=== PATIENT | male | born 1950 | race Caucasian/White ===

== ENCOUNTER 2018-06-05 11:54 | Emergency (ER) | payer MEDICARE, OTHER, SELFPAY ==
[2018-06-05 12:05] VITALS: BP 174/88; PULSE 101; RESP 20; TEMP 36.4; O2SAT 98
[2018-06-05] MEDS: SODIUM CHLORIDE 0.9% 1,000 ML 1000 ML IV (12:27)
[2018-06-05] MEDS: ONDANSETRON 4 MG/2 ML INJ IV (12:27)
--- NOTE | 2018-06-05 12:37 | ED.MALEGU ---
HPI - Male Genitourinary <WAYNE Son - Last Filed: 06/05/18 22:22> General Chief complaint: Urogenital-Male Stated complaint: THINKS KIDNEY STONES Time Seen by Provider: 06/05/18 12:37 Source: patient Mode of arrival: ambulatory Limitations: no limitations History of Present Illness HPI Narrative: 67-year-old male with history of type 2 diabetes and kidney stones that is a nonsmoker here for complaint of right flank pain and right lower quadrant pain over the past couple of days. He also states he has had some nausea vomiting. Positive p.o. intake. He states he feels like he has had chills at times. He reports increasing pain today. He states symptoms remind him of having a kidney stone in the past. He denies any trauma to the area. Last bowel movement was yesterday and was unremarkable. He denies any urinary symptoms. He denies any stressors relievers of his pain Related Data Home Medications Medication Instructions Recorded Confirmed amlodipine 10 mg PO DAILY 06/05/18 06/05/18 chlorthalidone 50 mg PO DAILY 06/05/18 06/05/18 fenofibrate 160 mg PO DAILY 06/05/18 06/05/18 insulin glargine [Lantus Solostar 24 units SUBCUT DAILY 06/05/18 06/05/18 U-100 Insulin] insulin lispro 1 dose SUBCUT AC 06/05/18 06/05/18 losartan 100 mg PO DAILY 06/05/18 06/05/18 melatonin 1 tab PO BEDTIME PRN 06/05/18 06/05/18 metformin 500 mg PO BID 06/05/18 06/05/18 rosuvastatin [Crestor] 20 mg PO DAILY 06/05/18 06/05/18 Previous Rx's Medication Instructions Recorded hydrocodone-acetaminophen [[place]] 1 tab PO Q4-6H PRN #15 tab 06/05/18 ondansetron 4 mg PO BID-TID PRN #10 tab 06/05/18 tamsulosin 0.4 mg PO DAILY #7 cap 06/05/18 Allergies Allergy/AdvReac Type Severity Reaction Status Date / Time levofloxacin [From Levaquin] Allergy Verified 06/05/18 12:15 Penicillins Allergy Verified 06/05/18 12:11 Review of Systems <WAYNE Son - Last Filed: 06/05/18 22:22> Constitutional Reports chills, Denies fever(s), Denies lethargy and Denies weakness Eyes Denies change in vision, Denies eye discharge, Denies irritation and Denies loss of vision ENT Ears, Nose, Mouth, and Throat: Denies change in voice, Denies neck pain and Denies sore throat Cardiovascular Denies chest pain, Denies irregular heart rhythm, Denies lightheadedness, Denies palpitations, Denies dyspnea, Denies dyspnea on exertion and Denies orthopnea Respiratory Denies cough, Denies dyspnea, Denies dyspnea on exertion and Denies wheezing Gastrointestinal Gastrointestinal: Reports abdominal pain Genitourinary Reports flank pain Musculoskeletal Denies neck pain Integumentary/Breasts Denies pruritus, Denies erythema, Denies rash and Denies wounds Neurologic Denies confusion, Denies loss of vision and Denies weakness Psychiatric Denies anxiety, Denies confusion, Denies depression, Denies homicidal ideation and Denies suicidal ideation Endocrine Denies palpitations Hematologic/Lymphatic Denies easy bruising Allergic/Immunologic Denies wheezing Exam <Sivakumar Tse [facility] - Last Filed: 06/05/18 22:22> Initial Vital Signs Initial Vital Signs: Vital Signs Temperature 97.5 F L 06/05/18 12:05 Pulse Rate 101 H 06/05/18 12:05 Respiratory Rate 20 06/05/18 12:05 Blood Pressure 174/88 H 06/05/18 12:05 Pulse Oximetry 98 06/05/18 12:05 Const General: cooperative and well developed Nutritional Appearance: well nourished Orientation: alert, awake, oriented x3 and not confused [facility] Mouth: oral mucosae normal and moist mucous membranes Eyes Conjunctivae: conjunctivae normal Sclera: sclerae normal Pupils: PERRL EOM: EOM intact bilaterally Resp Effort & Inspection: normal respiratory effort, able to speak in complete sentences, no respiratory distress and no use of accessory muscles Auscultation: clear to auscultation bilaterally, no rales, no rhonchi and no wheezes Cardio Rate: regular rate Rhythm: regular rhythm Heart Sounds: no click, no gallops, no murmurs and no rubs Pulses: normal peripheral pulses GI Inspection: non-distended Palpation: soft, no hepatosplenomegaly, No guarding, No pulsatile mass and tender (Tenderness right lower quadrant.) Auscultation: normal bowel sounds General: No CVA tenderness Other: Right flank pain Back/Spine/Pelvis Back: No CVA tenderness Cervical Spine: cervical ROM normal and No pain with cervical ROM Thoracic/Lumbar Spine: thoracic and lumbar spine normal to inspection Skin General: no rashes or lesions noted, No jaundice and No petechiae Neuro General: alert, oriented x3, gait normal and no focal motor deficits Speech: speech normal <Shaniqua Jimenez DO - Last Filed: 06/11/18 05:47> Initial Vital Signs Initial Vital Signs: Vital Signs Temperature 97.5 F L 06/05/18 12:05 Pulse Rate 101 H 06/05/18 12:05 Respiratory Rate 20 06/05/18 12:05 Blood Pressure 174/88 H 06/05/18 12:05 Pulse Oximetry 98 06/05/18 12:05 Course <WAYNE Son - Last Filed: 06/05/18 22:22> Orders Ordered: Discontinued Medications Sodium Chloride (Normal Saline 0.9%) 1,000 mls @ 1,000 mls/hr IV BOLUS ONE Stop: 06/05/18 13:24 Last Infusion: 06/05/18 13:30 Dose: 0 mls/hr Admin: 06/05/18 12:27 Dose: 1,000 mls/hr Ketorolac Tromethamine (Toradol) 30 mg IV NOW ONE Stop: 06/05/18 14:08 Last Admin: 06/05/18 14:09 Dose: 30 mg Ondansetron HCl (Zofran) 4 mg IV NOW ONE Stop: 06/05/18 12:26 Last Admin: 06/05/18 12:27 Dose: 4 mg Vital Signs - 8 hr 06/05/18 15:09 Pulse Rate 102 H Respiratory Rate 20 Blood Pressure 145/96 H Pulse Oximetry 97 <Shaniqua Jimenez DO - Last Filed: 06/11/18 05:47> Orders Ordered: Discontinued Medications Sodium Chloride (Normal Saline 0.9%) 1,000 mls @ 1,000 mls/hr IV BOLUS ONE Stop: 06/05/18 13:24 Last Infusion: 06/05/18 13:30 Dose: 0 mls/hr Admin: 10/05/18 12:27 Dose: 1,000 mls/hr Ketorolac Tromethamine (Toradol) 30 mg IV NOW ONE Stop: 06/05/18 14:08 Last Admin: 06/05/18 14:09 Dose: 30 mg Ondansetron HCl (Zofran) 4 mg IV NOW ONE Stop: 06/05/18 12:26 Last Admin: 06/05/18 12:27 Dose: 4 mg Vital Signs - 8 hr 06/05/18 15:09 Pulse Rate 102 H Respiratory Rate 20 Blood Pressure 145/96 H Pulse Oximetry 97 MDM - Male Genitourinary <WAYNE Son - Last Filed: 06/05/18 22:22> Lab Data Result diagrams: 06/05/18 12:10 06/05/18 12:10 Lab Results 06/05/18 06/05/18 06/05/18 Range/Units 12:10 12:10 12:59 WBC 9.3 (4.5-11.0) X10^3/uL RBC 5.04 (4.5-5.9) X10^6/uL Hgb 14.8 (13.5-17.5) g/dL Hct 41.5 (41-53) % MCV 82.3 (80-100) fL MCH 29.3 (26-34) PG MCHC 35.6 (30-36) % RDW 13.5 (11.6-14.8) % Plt Count 145 L (150-400) X10^3/uL Neut % (Auto) 72.9 (50-75) % Lymph % (Auto) 16.4 L (25-40) % [place] % (Auto) 9.1 (3-14) % Eos % (Auto) 1.0 L (2-4) % Baso % (Auto) 0.6 (0-2) % Neut # (Auto) 6800 H (5664-2038) /uL Sodium 138 (137-145) mmol/L Potassium 3.9 (3.4-5.1) mmol/L Chloride 103 (98-107) mmol/L Carbon Dioxide 23 (22-32) mmol/L BUN 17 (9-20) mg/dL Creatinine 1.40 H (0.66-1.25) mg/dL Estimated GFR 50.4 L (>60) mL/min BUN/Creatinine Ratio 12.1 (6-22) Glucose 188 H (80-110) mg/dL Calcium 8.7 (8.4-10.2) mg/dL Total Bilirubin 1.6 H (0.2-1.3) mg/dL AST 27 (17-59) IU/L ALT 23 (21-72) IU/L Alkaline Phosphatase 53 (38-126) U/L Total Protein 7.0 (6.3-8.2) g/dL Albumin 4.1 (3.5-5.0) g/dL Globulin 2.9 (1.7-4.1) g/dL Albumin/Globulin Ratio 1.4 (1.0-2.8) Lipase 93 (23-300) U/L Urine RBC 1-5/hpf (0-5/HPF) Urine WBC 1-5/hpf (0-5/HPF) Ur Squamous Epith Cells 1-5 /hpf Ur Transition Epith Cell 0-1/hpf (0-5/HPF) Uric Acid Crystals Few Triple Phos Crystals Voucher Examiner Other Crystals Other crystals: Urine Bacteria Occasional (0-1) (None) Ur Culture Indicated? Cult not indicated Micro UA Comment Not Reportable Urine Dip Bedside Urine Glucose Negative Bedside Urine Bilirubin - Negative Bedside Urine Ketone - Negative Urine Specific [place] 1.030 Bedside Urine Occult Blood +/- Bedside Urine pH 6.0 Bedside Urine Protein +/- 15 Bedside Urine Urobilinogen - Negative Bedside Urine Nitrite - Negative Bedside Urine Leukocytes - Negative Esterase Imaging Data CT scan - abdomen: Radiologist's impression: [address] [address] [address] Scan Report Signed Patient: Scooter Fontenot#: [id number] : 1950Acct:[id number] Age/Sex: 67 / MDate of Service: 06/05/18 Loc: ED Accession Number: [id number] Procedure: CT abdomen pelvis w con Ordering Provider: Sivakumar Tse PROCEDURE: CT ABDOMEN PELVIS W CON INDICATIONS: Pain to right flank and right lower quadrant TECHNIQUE: After the administration of intravenous contrast, 5 mm thick sections acquired from the diaphragm to the symphysis. 5 mm coronal and sagittal reformats were acquired. For radiation dose reduction, the following was used: automated exposure control, adjustment of mA and/or kV according to patient size. COMPARISON: [facility], CT, KIDNEY/ URETER/BLADDER, 02/22/2014, 5:54. Image quality: Excellent. Lung bases: There are punctate nodules at the lung bases bilaterally. Coronary artery calcifications are present. Lung bases are otherwise clear. Heart size is normal. Solid organs: There is diffuse hepatic hypoattenuation consistent with steatosis. The gallbladder is unremarkable. There is no intrahepatic retroperitoneal or ductal dilatation. The pancreas, spleen, and adrenal glands are unremarkable. Subcentimeter hypoattenuating foci within the left kidney are too small to characterize on this exam but likely represent renal cysts. There are nonobstructing nephroliths measuring up to 3 mm in diameter within the right renal pelvis. There is moderate right hydronephrosis and right ureteral dilatation. There is right perinephric and periureteral inflammatory fat stranding. There is a 7-8 mm calculus at the right ureterovesicular junction. Peritoneum and bowel: Bowel loops demonstrate normal wall thickness and caliber. No free fluid or air. The appendix is best seen on axial image 65 of series 2 and is unremarkable. Inflammatory fat stranding posterior to the appendix is thought related to right ureteral inflammation rather than appendiceal inflammation. The sigmoid colon is redundant and crosses into the right lower quadrant of the abdomen before proceeding to the left lower quadrant of the abdomen. There are sigmoid colon diverticulosis without evidence of acute diverticulitis. Nodes and vessels: No retroperitoneal or mesenteric adenopathy by size criteria. Aorta and inferior vena cava are normal in size. The bladder is [id number] calcified and noncalcified plaque of the abdominal aorta and branch vessels. Miscellaneous: There is an approximately 4.4 cm fat-containing umbilical hernia with a 1.5 cm hernia neck. Genitourinary: Bladder wall thickness is normal. Miscellaneous: No inguinal hernias or adenopathy. Bones: There are multilevel degenerative changes of the spine. There are is an osseous fragment anterosuperior to the L4 vertebral body, which may represent a limbus vertebral body, a degenerative osteophyte, or sequela of prior fracture. IMPRESSION: #1. 7-8mm obstructive calculus at the right ureterovesicular junction resulting in moderate right ureteral dilatation and moderate right hydronephrosis with surrounding inflammation. Additional smaller right renal calcifications are noted. #2. 4.4 cm fat-containing umbilical hernia. #3. Diffuse hepatic steatosis. #4. Punctate bilateral lung base pulmonary nodules. Consider followup CT of the chest in one year if the patient has a history of risk factors for lung malignancy such as a history of smoking. Findings discussed with the ordering provider WAYNE Tse at 1:40 PM on 06/05/[address] Strauss. Dictated by: Andrew Strauss M.D. on 06/05/2018 at 13:34 Approved by: Andrew Strauss M.D. on 06/05/2018 at 14:26 MDM Narrative Medical decision making narrative: CBC was obtained was unremarkable. Chemistry shows increased creatinine of 1.4 and GFR of 50. CT of the abdomen shows 7-8 mm obstructive stone at the right ureterovesical junction with hydro ureter and hydronephrosis. Discussed case with Urology at doctor Hardy who recommends patient follow [facility]. He is prescribed tamsulosin and [place]. Additional small nonobstructing renal calcifications are seen to the right kidney. There is a 4.4 cm fat containing umbilical hernia that patient reports as non acute finding. Punctate bilateral lung base pulmonary nodules are seen recommend follow up with primary care provider with discussion for supervision of these nodules to ensure stable. For any worsening symptoms return to the emergency room. <Shaniqua Jimenez, DO - Last Filed: 06/11/18 05:47> Lab Data Lab Results 06/05/18 06/05/18 06/05/18 Range/Units 12:10 12:10 12:59 WBC 9.3 (4.5-11.0) X10^3/uL RBC 5.04 (4.5-5.9) X10^6/uL Hgb 14.8 (13.5-17.5) g/dL Hct 41.5 (41-53) % MCV 82.3 (80-100) fL MCH 29.3 (26-34) PG MCHC 35.6 (30-36) % RDW 13.5 (11.6-14.8) % Plt Count 145 L (150-400) X10^3/uL Neut % (Auto) 72.9 (50-75) % Lymph % (Auto) 16.4 L (25-40) % [place] % (Auto) 9.1 (3-14) % Eos % (Auto) 1.0 L (2-4) % Baso % (Auto) 0.6 (0-2) % Neut # (Auto) 6800 H (8572-4947) /uL Sodium 138 (137-145) mmol/L Potassium 3.9 (3.4-5.1) mmol/L Chloride 103 (98-107) mmol/L Carbon Dioxide 23 (22-32) mmol/L BUN 17 (9-20) mg/dL Creatinine 1.40 H (0.66-1.25) mg/dL Estimated GFR 50.4 L (>60) mL/min BUN/Creatinine Ratio 12.1 (6-22) Glucose 188 H (80-110) mg/dL Calcium 8.7 (8.4-10.2) mg/dL Total Bilirubin 1.6 H (0.2-1.3) mg/dL AST 27 (17-59) IU/L ALT 23 (21-72) IU/L Alkaline Phosphatase 53 (38-126) U/L Total Protein 7.0 (6.3-8.2) g/dL Albumin 4.1 (3.5-5.0) g/dL Globulin 2.9 (1.7-4.1) g/dL Albumin/Globulin Ratio 1.4 (1.0-2.8) Lipase 93 (23-300) U/L Urine RBC 1-5/hpf (0-5/HPF) Urine WBC 1-5/hpf (0-5/HPF) Ur Squamous Epith Cells 1-5 /hpf Ur Transition Epith Cell 0-1/hpf (0-5/HPF) Uric Acid Crystals Few Triple Phos Crystals Voucher Examiner Other Crystals Other crystals: Urine Bacteria Occasional (0-1) (None) Ur Culture Indicated? Cult not indicated Micro UA Comment Not Reportable Urine Dip Bedside Urine Glucose Negative Bedside Urine Bilirubin - Negative Bedside Urine Ketone - Negative Urine Specific [place] 1.030 Bedside Urine Occult Blood +/- Bedside Urine pH 6.0 Bedside Urine Protein +/- 15 Bedside Urine Urobilinogen - Negative Bedside Urine Nitrite - Negative Bedside Urine Leukocytes - Negative Esterase Discharge Plan Departure Patient Disposition: Home Clinical Impression: Right nephrolithiasis Discharge Date/Time: 06/05/18 15:10 Interventions: ED Discharge Assessment Last Done: 06/05/18 15:09 Instructions: DI for Kidney Stones Activity Restrictions/Additional Instructions: CT of the abdomen shows a 7- 8 mm obstructive stone at the junction of the ureter/bladder. Laboratory results today show decreased kidney function secondary to the stone. Recommend following up at [facility] at call their number to schedule follow-up appointment beginning in next week for re-evaluation. UR prescribed [place] for pain use as directed no driving while on the [place]. You also prescribe Tamulosin facilitate passing of the stone. CT shows that there are smaller nonobstructing stones in the right kidney area. CT also showed some nodules to the base of both lower lungs. Follow up with primary care provider for monitoring to ensure they are stable. Strain urine and collect any stone to pass and save for laboratory testing. If any worsening symptoms return to the emergency room. Prescriptions: New hydrocodone-acetaminophen [[place]] 5-325 mg tablet 1 tab PO Q4-6H PRN (Reason: pain) Qty: 15 RF: 0 tamsulosin 0.4 mg capsule 0.4 mg PO DAILY Qty: 7 RF: 0 ondansetron 4 mg tablet,disintegrating 4 mg PO BID-TID PRN (Reason: nausea and vomiting) Qty: 10 RF: 0 No Action metformin 500 mg tablet 500 mg PO BID RF: 0 chlorthalidone 50 mg tablet 50 mg PO DAILY RF: 0 amlodipine 10 mg tablet 10 mg PO DAILY RF: 0 losartan 100 mg tablet 100 mg PO DAILY RF: 0 rosuvastatin [Crestor] 20 mg tablet 20 mg PO DAILY RF: 0 fenofibrate 160 mg tablet 160 mg PO DAILY RF: 0 insulin glargine [Lantus Solostar U-100 Insulin] 100 unit/mL (3 mL) insulin pen 24 units subcut DAILY RF: 0 insulin lispro 100 unit/mL Insulin Pen 1 dose subcut AC RF: 0 melatonin 1 tab PO BEDTIME PRN (Reason: Sleep) RF: 0 [facility] [[facility]] [facility] [Provider Group] <Shaniqua Jimenez DO - Last Filed: 06/11/18 05:47> Cosign ED Attending Cosalfieature Attestation: I was immediately available in the department for consultation. This documentation has been reviewed and I agree with assessment and plan. Supervised by Shaniqua Jimenez DO
--- NOTE | 2018-06-05 12:45 | DI.CT.S_ITS ---
PROCEDURE: CT ABDOMEN PELVIS W CON INDICATIONS: Pain to right flank and right lower quadrant TECHNIQUE: After the administration of intravenous contrast, 5 mm thick sections acquired from the diaphragm to the symphysis. 5 mm coronal and sagittal reformats were acquired. For radiation dose reduction, the following was used: automated exposure control, adjustment of mA and/or kV according to patient size. COMPARISON: [facility], CT, KIDNEY/ URETER/BLADDER, 02/22/2014, 5:54. Image quality: Excellent. Lung bases: There are punctate nodules at the lung bases bilaterally. Coronary artery calcifications are present. Lung bases are otherwise clear. Heart size is normal. Solid organs: There is diffuse hepatic hypoattenuation consistent with steatosis. The gallbladder is unremarkable. There is no intrahepatic retroperitoneal or ductal dilatation. The pancreas, spleen, and adrenal glands are unremarkable. Subcentimeter hypoattenuating foci within the left kidney are too small to characterize on this exam but likely represent renal cysts. There are nonobstructing nephroliths measuring up to 3 mm in diameter within the right renal pelvis. There is moderate right hydronephrosis and right ureteral dilatation. There is right perinephric and periureteral inflammatory fat stranding. There is a 7-8 mm calculus at the right ureterovesicular junction. Peritoneum and bowel: Bowel loops demonstrate normal wall thickness and caliber. No free fluid or air. The appendix is best seen on axial image 65 of series 2 and is unremarkable. Inflammatory fat stranding posterior to the appendix is thought related to right ureteral inflammation rather than appendiceal inflammation. The sigmoid colon is redundant and crosses into the right lower quadrant of the abdomen before proceeding to the left lower quadrant of the abdomen. There are sigmoid colon diverticulosis without evidence of acute diverticulitis. Nodes and vessels: No retroperitoneal or mesenteric adenopathy by size criteria. Aorta and inferior vena cava are normal in size. The bladder is [id number] calcified and noncalcified plaque of the abdominal aorta and branch vessels. Miscellaneous: There is an approximately 4.4 cm fat-containing umbilical hernia with a 1.5 cm hernia neck. Genitourinary: Bladder wall thickness is normal. Miscellaneous: No inguinal hernias or adenopathy. Bones: There are multilevel degenerative changes of the spine. There are is an osseous fragment anterosuperior to the L4 vertebral body, which may represent a limbus vertebral body, a degenerative osteophyte, or sequela of prior fracture. IMPRESSION: #1. 7-8mm obstructive calculus at the right ureterovesicular junction resulting in moderate right ureteral dilatation and moderate right hydronephrosis with surrounding inflammation. Additional smaller right renal calcifications are noted. #2. 4.4 cm fat-containing umbilical hernia. #3. Diffuse hepatic steatosis. #4. Punctate bilateral lung base pulmonary nodules. Consider followup CT of the chest in one year if the patient has a history of risk factors for lung malignancy such as a history of smoking. Findings discussed with the ordering provider WAYNE Tse at 1:40 PM on 06/05/[address] Strauss. Dictated by: Andrew Strauss M.D. on 06/05/2018 at 13:34 Approved by: Andrew Strauss M.D. on 06/05/2018 at 14:26
[2018-06-05 12:52] LABS: Add Manual Diff / Slide Review NO; Basophils Percent Auto 0.6 % (0-2); Hematocrit 41.5 % (41-53); Hemoglobin 14.8 g/dL (13.5-17.5); Lymphocytes Percent Auto 16.4 % (25-40); Mean Corpuscular HGB Conc 35.6 % (30-36); Mean Corpuscular Hemoglobin 29.3 PG (26-34); Mean Corpuscular Volume 82.3 fL (80-100); Monocytes Percent Auto 9.1 % (3-14); Neutrophils Absolute Auto 6800 /uL (3000-5900); Neutrophils Percent Auto 72.9 % (50-75); Platelet Count 145 X10^3/uL (150-400); Red Blood Cell Count 5.04 X10^6/uL (4.5-5.9); Red Cell Distribution Width 13.5 % (11.6-14.8); White Blood Cell Count 9.3 X10^3/uL (4.5-11.0)
[2018-06-05 12:57] LABS: Alanine Aminotransferase 23 IU/L (21-72); Albumin 4.1 g/dL (3.5-5.0); Albumin Globulin Ratio 1.4 (1.0-2.8); Alkaline Phosphatase 53 U/L (38-126); Aspartate Aminotransferase 27 IU/L (17-59); BUN Creatinine Ratio 12.1 (6-22); Bilirubin Total 1.6 mg/dL (0.2-1.3); Blood Urea Nitrogen 17 mg/dL (9-20); Calcium 8.7 mg/dL (8.4-10.2); Carbon Dioxide 23 mmol/L (22-32); Chloride 103 mmol/L (98-107); Estimated Glomerular Filt Rate 50.4 mL/min (>60); Globulin 2.9 g/dL (1.7-4.1); Glucose 188 mg/dL (80-110); HEMOLYSIS < 15 (0-50); Lipase 93 U/L (23-300); Potassium 3.9 mmol/L (3.4-5.1); Sodium 138 mmol/L (137-145)
[2018-06-05 13:27] LABS: RBC Urine 1-5/HPF (0-5/HPF); Squamous Epithelial Cell Urine 1-5 /HPF; Transitional Epi Cells Urine 0-1/HPF (0-5/HPF); WBC Urine 1-5/HPF (0-5/HPF)
[2018-06-05 13:28] LABS: Bacteria Urine Occasional (0-1); Uric Acid Crystals Urine Few
[2018-06-05 13:38] LABS: Other Crystals Urine Other Crystals:
[2018-06-05 13:46] LABS: Culture Indicated Urine Cult Not Indicated
[2018-06-05 14:08] VITALS: BP 158/93; PULSE 94; RESP 18; O2SAT 97
[2018-06-05] MEDS: KETOROLAC 60 MG/2 ML VIAL 30 MG IV (14:09)
[2018-06-05 15:09] VITALS: BP 145/96; PULSE 102; RESP 20; O2SAT 97
== END 2018-06-05 15:10 | disposition home or self-care (01) ==
PROVIDERS: Emergency Provider Nurse Practitioner Family
DX: N20.0 Calculus of kidney (principal)
CPT/HCPCS: 36591; 74177; 80053; 81003; 81015; 83690; 85025; 96361; 96374; 96375; 99283; 99285; J1885; J2405; Q9967

== ENCOUNTER 2019-11-11 10:48 | Emergency (ER) | payer MEDICARE, OTHER, SELFPAY ==
[2019-11-11 10:53] VITALS: BP 189/102; PULSE 111; RESP 20; TEMP 36.6; O2SAT 100
--- NOTE | 2019-11-11 11:20 | PC.NURSE ---
Pt c/o right groin pain that is similar to previous kidney stones. Pain radiates to the back. Worsening over 10 days. Subjective fever and chills w/o documented fever.
[2019-11-11] MEDS: KETOROLAC 60 MG/2 ML VIAL 15 MG IV (11:24)
[2019-11-11] MEDS: ONDANSETRON 4 MG/2 ML INJ IV (11:24)
[2019-11-11] MEDS: SODIUM CHLORIDE 0.9% 1,000 ML 500 ML IV (11:24)
[2019-11-11 11:53] LABS: Add Manual Diff / Slide Review NO; Basophils Absolute Auto 100 /uL (0-100); Basophils Percent Auto 0.6 % (0-2); Eosinophils Absolute Auto 100 /uL (0-450); Eosinophils Percent Auto 1.5 % (2-4); Hemoglobin 13.1 g/dL (13.5-17.5); Lymphocytes Absolute Auto 1400 /uL (1100-4500); Lymphocytes Percent Auto 14.4 % (25-40); Mean Corpuscular HGB Conc 35.4 % (30-36); Mean Corpuscular Hemoglobin 28.6 PG (26-34); Monocytes Absolute Auto 700 /uL (0-900); Monocytes Percent Auto 6.9 % (3-14); Neutrophils Absolute Auto 7500 /uL (1500-7000); Neutrophils Percent Auto 76.6 % (50-75); Platelet Count 156 X10^3/uL (150-400); Red Blood Cell Count 4.57 X10^6/uL (4.5-5.9); Red Cell Distribution Width 13.6 % (11.6-14.8); White Blood Cell Count 9.8 X10^3/uL (4.5-11.0)
[2019-11-11 12:00] LABS: INR 1.1 (0.9-1.3); Prothrombin Time 12.4 SECONDS (10.1-12.7)
[2019-11-11 12:03] LABS: PTT Partial Thromboplastin Tim 29 SECONDS (26.4-36.2)
[2019-11-11 12:05] LABS: Amylase 62 U/L (30-110); Lactate (Lactic Acid) 1.8 mmol/L (0.7-2.1)
[2019-11-11 12:07] LABS: Alanine Aminotransferase 12 IU/L (<50); Albumin Globulin Ratio 1.2 (1.0-2.8); Alkaline Phosphatase 67 U/L (38-126); Aspartate Aminotransferase 17 IU/L (17-59); BUN Creatinine Ratio 19.5 (6-22); Bilirubin Total 0.8 mg/dL (0.2-1.3); Blood Urea Nitrogen 26 mg/dL (9-20); Calcium 9.7 mg/dL (8.4-10.2); Carbon Dioxide 27 mmol/L (22-32); Chloride 99 mmol/L (98-107); Estimated Glomerular Filt Rate 53.2 mL/min (>60); Globulin 3.3 g/dL (1.7-4.1); Glucose 254 mg/dL (80-110); HEMOLYSIS < 15 (0-50); Lipase 255 U/L (23-300); Potassium 4.9 mmol/L (3.4-5.1); Sodium 134 mmol/L (137-145); Total Protein 7.3 g/dL (6.3-8.2)
[2019-11-11 12:50] LABS: Procalcitonin < 0.05 ng/mL (<0.5)
[2019-11-11 13:15] VITALS: BP 164/90; PULSE 97; RESP 16; O2SAT 100
[2019-11-11 13:52] LABS: Bacteria Urine Few (2-10); Culture Indicated Urine Cult Not Indicated; RBC Urine 0-1/HPF (0-5/HPF); WBC Urine 1-5/HPF (0-5/HPF)
--- NOTE | 2019-11-11 13:59 | DI.CT.S_ITS ---
PROCEDURE: CT ABDOMEN PELVIS W CON INDICATIONS: rlq pain TECHNIQUE: After the administration of intravenous contrast, 5 mm thick sections acquired from the diaphragm to the symphysis. 5 mm coronal and sagittal reformats were acquired. For radiation dose reduction, the following was used: automated exposure control, adjustment of mA and/or kV according to patient size. COMPARISON: [facility], CT, CT ABDOMEN PELVIS W CON, 06/05/2018, 13:08. FINDINGS: Image quality: Excellent. ABDOMEN: Lung bases: Lung bases are clear. Heart size is normal. Solid organs: Liver is normal in size and enhancement. Mild hepatic steatosis is seen. Gallbladder is within normal limits.. Biliary system is non dilated. Pancreas enhances normally. Spleen is enlarged and show normal enhancement.. No adrenal nodules. Bilateral kidneys are normal in size. There is moderate right-sided hydronephrosis and proximal hydroureter. 1 cm and 1.3 cm stones are seen in proximal right ureter just distal to right UPJ. No left-sided renal stone or hydronephrosis is seen. There is mild right perinephric fat stranding. No perinephric fluid. Peritoneum and bowel: Bowel loops demonstrate normal wall thickness and caliber. No free fluid or air. Extensive colonic diverticulosis is seen, no CT evidence of acute diverticulitis. Nodes and vessels: No retroperitoneal or mesenteric adenopathy by size criteria. Aorta and inferior vena cava are normal in size. Miscellaneous: Umbilical hernia is seen containing fat only. PELVIS: Genitourinary: Bladder wall thickness is normal. Miscellaneous: No inguinal hernias or adenopathy. Bones: No suspicious bony lesions. No vertebral body compression fractures. IMPRESSION: 1. 2 obstructing stone seen in proximal right ureter measures up to 1.3 cm in size. Moderate right-sided hydronephrosis and proximal hydroureter and mild right perinephric fat stranding. No left-sided renal stone hydronephrosis. No gross abnormality is seen the urinary bladder. 2. Splenomegaly, no discrete splenic lesion. Mild hepatic steatosis. 3. No bowel obstruction. No abnormal bowel wall thickening. No free fluid or free air. Colonic diverticulosis with no CT evidence of acute diverticulitis. Dictated by: Akil Robles M.D. on 11/11/2019 at 15:19 Approved by: Akil Robles M.D. on 11/11/2019 at 15:24
--- NOTE | 2019-11-11 14:33 | ED.MALEGU ---
HPI - Male Genitourinary <Shaniqua Carroll, [employer]KEEPER-BC - Last Filed: 11/11/19 16:45> General Chief complaint: Urogenital-Male Stated complaint: Thinks Passing a Kidney Stone, Also Has a Fever Time Seen by Provider: 11/11/19 11:28 Source: patient Mode of arrival: Ambulatory Limitations: no limitations History of Present Illness HPI Narrative: The patient is a 69-year-old male nonsmoker with history of kidney stones who presents with a chief complaint of right-sided flank pain radiating down to his right groin. He believes that he is having another kidney stone. This is been ongoing for the past 10 days. He states the pain comes and goes, comes in waves with nausea. He has tried ibuprofen for pain, but that is not providing much relief. He denies any fevers, but complains of chills. He states that the pain is nonradiating other than his right lower quadrant radiating around to his right flank. He states that this is consistent with previous kidney stones. He denies any dysuria urgency or frequency. He denies any hematuria. Related Data Home Medications Medication Instructions Recorded Confirmed amlodipine 10 mg PO DAILY 06/05/18 11/11/19 chlorthalidone 50 mg PO DAILY 06/05/18 11/11/19 insulin glargine [Lantus Solostar 26 units SUBCUT DAILY 06/05/18 11/11/19 U-100 Insulin] losartan 100 mg PO DAILY 06/05/18 11/11/19 melatonin 1 tab PO BEDTIME PRN 06/05/18 11/11/19 metformin 500 mg PO BID 06/05/18 11/11/19 exenatide microspheres [Bydureon 2 mg SUBCUT QWEEK 11/11/19 11/11/19 BCise] fenofibrate nanocrystallized 145 mg PO DAILY 11/11/19 11/11/19 rosuvastatin 40 mg PO DAILY 11/11/19 11/11/19 Previous Rx's Medication Instructions Recorded ketorolac 10 mg PO TID PRN #15 tab 11/11/19 ondansetron 4 mg PO Q6H PRN #14 tab 11/11/19 tamsulosin 0.4 mg PO DAILY #7 cap 11/11/19 Allergies Allergy/AdvReac Type Severity Reaction Status Date / Time levofloxacin [From Levaquin] Allergy Verified 11/11/19 10:56 Penicillins Allergy Verified 11/11/19 10:56 Review of Systems <GLENN Erazo - Last Filed: 11/11/19 16:45> Review of Systems Narrative: GENERAL: Denies chills, fatigue, malaise, fever, sweats. HEENT: Denies sinus pain, ear pain, sore throat, difficulty swallowing, dizziness. RESPIRATORY: Denies dyspnea, cough, wheezing, hemoptysis, sputum. CARDIOVASCULAR: Denies chest pain, palpitations, orthopnea, edema, GASTROINTESTINAL: See HPI : See HPI MUSCULOSKELETAL: denies weakness, joint pain, or bony pain SKIN: Denies rash, skin lesions, or other NEUROLOGIC: Denies weakness, headache, numbness, change in speech, confusion, seizures, incoordination. PSYCHIATRIC: No concerning psychosocial issues. 12 point review of systems is negative except for those stated above Patient History <GLENN Erazo - Last Filed: 11/11/19 16:45> Medical History (Updated 11/11/19 @ 16:16 by GLENN Erazo) History of kidney stones (Acute) Type 2 diabetes mellitus (Acute) Social History Smoking Status: Never smoker Smoking Status: Never smoker alcohol intake frequency: 0-2 drinks per day Substance Use Type: does not use Exam <GLENN Erazo - Last Filed: 11/11/19 16:45> Narrative Exam Narrative: GENERAL: This is a well-nourished, well-developed patient, in no acute distress HEAD: Atraumatic. Normocephalic. No temporal or scalp tenderness. EYES: Pupils equal round and reactive. Extraocular motions intact. No scleral icterus. No injection or drainage. ENT: Nose without bleeding, purulent drainage or septal hematoma. Throat without erythema, tonsillar hypertrophy or exudate. Uvula midline. Airway patent. NECK: Trachea midline. No JVD or lymphadenopathy. Supple, nontender, no meningeal signs. CARDIOVASCULAR: Regular rate and rhythm RESPIRATORY: Clear to auscultation. Breath sounds equal bilaterally. No wheezes, rales, or rhonchi. No cough. No increased respiratory effort. No accessory muscle use. GASTROINTESTINAL: Abdomen soft, nondistended. No hepato-splenomegaly, or palpable masses. No guarding. Slight tenderness to right lower quadrant palpation. EXTREMITIES: No clubbing, cyanosis, or edema. No joint tenderness, effusion, or edema noted. BACK: Nontender without deformity or crepitance. CVA tenderness on left side, no CVA tenderness on right side. NEURO: AOx3. Stable gait SKIN: No rash or erythema on visible skin Initial Vital Signs Initial Vital Signs: Vital Signs Temperature 97.8 F 11/11/19 10:53 Pulse Rate 111 H 11/11/19 10:53 Respiratory Rate 11/11/19 10:53 Blood Pressure 189/102 H 11/11/19 10:53 Pulse Oximetry 100 11/11/19 10:53 <Jamison Sequeira MD - Last Filed: 11/12/19 07:53> Initial Vital Signs Initial Vital Signs: Vital Signs Temperature 97.8 F 11/11/19 10:53 Pulse Rate 111 H 11/11/19 10:53 Respiratory Rate 11/11/19 10:53 Blood Pressure 189/102 H 11/11/19 10:53 Pulse Oximetry 100 11/11/19 10:53 Course <GLENN Erazo - Last Filed: 11/11/19 16:45> Orders Ordered: Discontinued Medications Sodium Chloride (Normal Saline 0.9%) 1,000 mls @ 500 mls/hr IV BOLUS ONE Stop: 11/11/19 12:56 Last Admin: 11/11/19 11:24 Dose: 500 mls/hr Documented by: SARA Ketorolac Tromethamine (Toradol) 15 mg IV NOW ONE Stop: 11/11/19 11:17 Last Admin: 11/11/19 11:24 Dose: 15 mg Documented by: SARA Ondansetron HCl (Zofran) 4 mg IV NOW ONE Stop: 11/11/19 10:57 Last Admin: 11/11/19 11:24 Dose: 4 mg Documented by: SARA Vital Signs Vital signs: Vital Signs - 8 hr 11/11/19 10:53 11/11/19 13:15 11/11/19 15:42 Temperature 97.8 F Pulse Rate 111 H 97 H 102 H Respiratory Rate 20 16 16 Blood Pressure 189/102 H Blood Pressure [Left Arm] 164/90 H 179/95 H Pulse Oximetry 100 100 100 <Jamison Sequeira MD - Last Filed: 11/12/19 07:53> Orders Ordered: Discontinued Medications Sodium Chloride (Normal Saline 0.9%) 1,000 mls @ 500 mls/hr IV BOLUS ONE Stop: 11/11/19 12:56 Last Admin: 11/11/19 11:24 Dose: 500 mls/hr Documented by: SARA Ketorolac Tromethamine (Toradol) 15 mg IV NOW ONE Stop: 11/11/19 11:17 Last Admin: 11/11/19 11:24 Dose: 15 mg Documented by: SARA Ondansetron HCl (Zofran) 4 mg IV NOW ONE Stop: 11/11/19 10:57 Last Admin: 11/11/19 11:24 Dose: 4 mg Documented by: SARA Vital Signs Vital signs: Vital Signs - 8 hr 11/11/19 10:53 11/11/19 13:15 11/11/19 15:42 Temperature 97.8 F Pulse Rate 111 H 97 H 102 H Respiratory Rate 20 16 16 Blood Pressure 189/102 H Blood Pressure [Left Arm] 164/90 H 179/95 H Pulse Oximetry 100 100 100 MDM - Male Genitourinary <HERBERT Erazo - Last Filed: 11/11/19 16:45> Lab Data Result diagrams: 11/11/19 11:38 11/11/19 11:38 Labs: Lab Results 11/11/19 11/11/19 11/11/19 Range/Units 11:38 11:38 11:38 WBC 9.8 (4.5-11.0) X10^3/uL RBC 4.57 (4.5-5.9) X10^6/uL Hgb 13.1 L (13.5-17.5) g/dL Hct 37.0 L (41-53) % MCV 81.0 (80-100) fL MCH 28.6 (26-34) PG MCHC 35.4 (30-36) % RDW 13.6 (11.6-14.8) % Plt Count 156 (150-400) X10^3/uL Neut % (Auto) 76.6 H (50-75) % Lymph % (Auto) 14.4 L (25-40) % [place] % (Auto) 6.9 (3-14) % Eos % (Auto) 1.5 L (2-4) % Baso % (Auto) 0.6 (0-2) % Neut # (Auto) 7500 H (9161-9634) /uL Lymph # (Auto) 1400 (3185-4714) /uL [place] # (Auto) 700 (0-900) /uL Eos # (Auto) 100 (0-450) /uL Baso # (Auto) 100 (0-100) /uL PT 12.4 (10.1-12.7) SECONDS INR 1.1 (0.9-1.3) APTT 29 (26.4-36.2) SECONDS Sodium 134 L (137-145) mmol/L Potassium 4.9 (3.4-5.1) mmol/L Chloride 99 (98-107) mmol/L Carbon Dioxide 27 (22-32) mmol/L BUN 26 H (9-20) mg/dL Creatinine 1.33 H (0.66-1.25) mg/dL Estimated GFR 53.2 L (>60) mL/min BUN/Creatinine Ratio 19.5 (6-22) Glucose 254 H (80-110) mg/dL Lactate (0.7-2.1) mmol/L Calcium 9.7 (8.4-10.2) mg/dL Total Bilirubin 0.8 (0.2-1.3) mg/dL AST 17 (17-59) IU/L ALT 12 (<50) IU/L Alkaline Phosphatase 67 (38-126) U/L Total Protein 7.3 (6.3-8.2) g/dL Albumin 4.0 (3.5-5.0) g/dL Globulin 3.3 (1.7-4.1) g/dL Albumin/Globulin Ratio 1.2 (1.0-2.8) Amylase (30-110) U/L Lipase 255 (23-300) U/L Procalcitonin (<0.5) ng/mL Urine RBC (0-5/HPF) Urine WBC (0-5/HPF) Urine Bacteria (None) Ur Culture Indicated? 11/11/19 11/11/19 11/11/19 Range/Units 11:38 11:38 11:38 WBC (4.5-11.0) X10^3/uL RBC (4.5-5.9) X10^6/uL Hgb (13.5-17.5) g/dL Hct (41-53) % MCV (80-100) fL MCH (26-34) PG MCHC (30-36) % RDW (11.6-14.8) % Plt Count (150-400) X10^3/uL Neut % (Auto) (50-75) % Lymph % (Auto) (25-40) % [place] % (Auto) (3-14) % Eos % (Auto) (2-4) % Baso % (Auto) (0-2) % Neut # (Auto) (8917-6438) /uL Lymph # (Auto) (2350-1864) /uL [place] # (Auto) (0-900) /uL Eos # (Auto) (0-450) /uL Baso # (Auto) (0-100) /uL PT (10.1-12.7) SECONDS INR (0.9-1.3) APTT (26.4-36.2) SECONDS Sodium (137-145) mmol/L Potassium (3.4-5.1) mmol/L Chloride (98-107) mmol/L Carbon Dioxide (22-32) mmol/L BUN (9-20) mg/dL Creatinine (0.66-1.25) mg/dL Estimated GFR (>60) mL/min BUN/Creatinine Ratio (6-22) Glucose (80-110) mg/dL Lactate 1.8 (0.7-2.1) mmol/L Calcium (8.4-10.2) mg/dL Total Bilirubin (0.2-1.3) mg/dL AST (17-59) IU/L ALT (<50) IU/L Alkaline Phosphatase (38-126) U/L Total Protein (6.3-8.2) g/dL Albumin (3.5-5.0) g/dL Globulin (1.7-4.1) g/dL Albumin/Globulin Ratio (1.0-2.8) Amylase 62 (30-110) U/L Lipase (23-300) U/L Procalcitonin < 0.05 (<0.5) ng/mL Urine RBC (0-5/HPF) Urine WBC (0-5/HPF) Urine Bacteria (None) Ur Culture Indicated? 11/11/19 Range/Units 12:48 WBC (4.5-11.0) X10^3/uL RBC (4.5-5.9) X10^6/uL Hgb (13.5-17.5) g/dL Hct (41-53) % MCV (80-100) fL MCH (26-34) PG MCHC (30-36) % RDW (11.6-14.8) % Plt Count (150-400) X10^3/uL Neut % (Auto) (50-75) % Lymph % (Auto) (25-40) % [place] % (Auto) (3-14) % Eos % (Auto) (2-4) % Baso % (Auto) (0-2) % Neut # (Auto) (6704-3500) /uL Lymph # (Auto) (1349-2386) /uL [place] # (Auto) (0-900) /uL Eos # (Auto) (0-450) /uL Baso # (Auto) (0-100) /uL PT (10.1-12.7) SECONDS INR (0.9-1.3) APTT (26.4-36.2) SECONDS Sodium (137-145) mmol/L Potassium (3.4-5.1) mmol/L Chloride (98-107) mmol/L Carbon Dioxide (22-32) mmol/L BUN (9-20) mg/dL Creatinine (0.66-1.25) mg/dL Estimated GFR (>60) mL/min BUN/Creatinine Ratio (6-22) Glucose (80-110) mg/dL Lactate (0.7-2.1) mmol/L Calcium (8.4-10.2) mg/dL Total Bilirubin (0.2-1.3) mg/dL AST (17-59) IU/L ALT (<50) IU/L Alkaline Phosphatase (38-126) U/L Total Protein (6.3-8.2) g/dL Albumin (3.5-5.0) g/dL Globulin (1.7-4.1) g/dL Albumin/Globulin Ratio (1.0-2.8) Amylase (30-110) U/L Lipase (23-300) U/L Procalcitonin (<0.5) ng/mL Urine RBC 0-1/hpf (0-5/HPF) Urine WBC 1-5/hpf (0-5/HPF) Urine Bacteria Few (2-10) H (None) Ur Culture Indicated? Cult not indicated Urine Dip Bedside Urine Glucose 500 mg/dl Bedside Urine Bilirubin - Negative Bedside Urine Ketone - Negative Urine Specific [place] 1.030 Bedside Urine Occult Blood - Negative Bedside Urine pH 5.5 Bedside Urine Protein +/- 15 Bedside Urine Urobilinogen - Negative Bedside Urine Nitrite - Negative Bedside Urine Leukocytes - Negative Esterase Imaging Data CT scan - abdomen/pelvis: Radiologist's Impression: [address] [place] [id number] Scan Report Signed Patient: Scooter Fontenot AMR#: [id number] : 1950Acct:[id number] Age/Sex: 69 / MDate of Service: 11/11/19 Loc: ED Accession Number: [id number] Procedure: CT abdomen pelvis w con Ordering Provider: Shaniqua Carroll PROCEDURE: CT ABDOMEN PELVIS W CON INDICATIONS: rlq pain TECHNIQUE: After the administration of intravenous contrast, 5 mm thick sections acquired from the diaphragm to the symphysis. 5 mm coronal and sagittal reformats were acquired. For radiation dose reduction, the following was used: automated exposure control, adjustment of mA and/or kV according to patient size. COMPARISON: [facility] [place], CT, CT ABDOMEN PELVIS W CON, 06/05/2018, 13:08. FINDINGS: Image quality: Excellent. ABDOMEN: Lung bases: Lung bases are clear. Heart size is normal. Solid organs: Liver is normal in size and enhancement. Mild hepatic steatosis is seen. Gallbladder is within normal limits.. Biliary system is non dilated. Pancreas enhances normally. Spleen is enlarged and show normal enhancement.. No adrenal nodules. Bilateral kidneys are normal in size. There is moderate right-sided hydronephrosis and proximal hydroureter. 1 cm and 1.3 cm stones are seen in proximal right ureter just distal to right UPJ. No left-sided renal stone or hydronephrosis is seen. There is mild right perinephric fat stranding. No perinephric fluid. Peritoneum and bowel: Bowel loops demonstrate normal wall thickness and caliber. No free fluid or air. Extensive colonic diverticulosis is seen, no CT evidence of acute diverticulitis. Nodes and vessels: No retroperitoneal or mesenteric adenopathy by size criteria. Aorta and inferior vena cava are normal in size. Miscellaneous: Umbilical hernia is seen containing fat only. PELVIS: Genitourinary: Bladder wall thickness is normal. Miscellaneous: No inguinal hernias or adenopathy. Bones: No suspicious bony lesions. No vertebral body compression fractures. IMPRESSION: 1. 2 obstructing stone seen in proximal right ureter measures up to 1.3 cm in size. Moderate right-sided hydronephrosis and proximal hydroureter and mild right perinephric fat stranding. No left-sided renal stone hydronephrosis. No gross abnormality is seen the urinary bladder. 2. Splenomegaly, no discrete splenic lesion. Mild hepatic steatosis. 3. No bowel obstruction. No abnormal bowel wall thickening. No free fluid or free air. Colonic diverticulosis with no CT evidence of acute diverticulitis. Dictated by: Akil Robles M.D. on 11/11/2019 at 15:19 Approved by: Akil Robles M.D. on 11/11/2019 at 15:24 MDM Narrative Medical decision making narrative: The patient is a 69-year-old male who presents with a chief complaint of suspected of a kidney stone. His creatinine is 1.33. CT shows 2 obstructing stones in the right ureter, 1 cm and 1.3 cm. Moderate right-sided hydro noted. Patient has no leukocytosis, no signs of infection and urine. I spoke with Dr. Simms from Urology, who is happy to follow-up with patient. Patient was placed on tamsulosin given pain and nausea medications. Patient did not want any controlled medications for pain and declined Vicodin and declined tramadol. I discussed at length monitoring for signs of infection such as fever, dysuria etcetera. Patient states understanding of follow-up with Urology as well as follow-up with primary care provider. Patient has no questions or concerns upon discharge and states understanding of return precautions as well as follow-up care. <Jamison Sequeira MD - Last Filed: 11/12/19 07:53> Lab Data Labs: Lab Results 11/11/19 11/11/19 11/11/19 Range/Units 11:38 11:38 11:38 WBC 9.8 (4.5-11.0) X10^3/uL RBC 4.57 (4.5-5.9) X10^6/uL Hgb 13.1 L (13.5-17.5) g/dL Hct 37.0 L (41-53) % MCV 81.0 (80-100) fL MCH 28.6 (26-34) PG MCHC 35.4 (30-36) % RDW 13.6 (11.6-14.8) % Plt Count 156 (150-400) X10^3/uL Neut % (Auto) 76.6 H (50-75) % Lymph % (Auto) 14.4 L (25-40) % [place] % (Auto) 6.9 (3-14) % Eos % (Auto) 1.5 L (2-4) % Baso % (Auto) 0.6 (0-2) % Neut # (Auto) 7500 H (6469-4560) /uL Lymph # (Auto) 1400 (6441-4323) /uL [place] # (Auto) 700 (0-900) /uL Eos # (Auto) 100 (0-450) /uL Baso # (Auto) 100 (0-100) /uL PT 12.4 (10.1-12.7) SECONDS INR 1.1 (0.9-1.3) APTT 29 (26.4-36.2) SECONDS Sodium 134 L (137-145) mmol/L Potassium 4.9 (3.4-5.1) mmol/L Chloride 99 (98-107) mmol/L Carbon Dioxide 27 (22-32) mmol/L BUN 26 H (9-20) mg/dL Creatinine 1.33 H (0.66-1.25) mg/dL Estimated GFR 53.2 L (>60) mL/min BUN/Creatinine Ratio 19.5 (6-22) Glucose 254 H (80-110) mg/dL Lactate (0.7-2.1) mmol/L Calcium 9.7 (8.4-10.2) mg/dL Total Bilirubin 0.8 (0.2-1.3) mg/dL AST 17 (17-59) IU/L ALT 12 (<50) IU/L Alkaline Phosphatase 67 (38-126) U/L Total Protein 7.3 (6.3-8.2) g/dL Albumin 4.0 (3.5-5.0) g/dL Globulin 3.3 (1.7-4.1) g/dL Albumin/Globulin Ratio 1.2 (1.0-2.8) Amylase (30-110) U/L Lipase 255 (23-300) U/L Procalcitonin (<0.5) ng/mL Urine RBC (0-5/HPF) Urine WBC (0-5/HPF) Urine Bacteria (None) Ur Culture Indicated? 11/11/19 11/11/19 11/11/19 Range/Units 11:38 11:38 11:38 WBC (4.5-11.0) X10^3/uL RBC (4.5-5.9) X10^6/uL Hgb (13.5-17.5) g/dL Hct (41-53) % MCV (80-100) fL MCH (26-34) PG MCHC (30-36) % RDW (11.6-14.8) % Plt Count (150-400) X10^3/uL Neut % (Auto) (50-75) % Lymph % (Auto) (25-40) % [place] % (Auto) (3-14) % Eos % (Auto) (2-4) % Baso % (Auto) (0-2) % Neut # (Auto) (3938-4967) /uL Lymph # (Auto) (0774-6259) /uL [place] # (Auto) (0-900) /uL Eos # (Auto) (0-450) /uL Baso # (Auto) (0-100) /uL PT (10.1-12.7) SECONDS INR (0.9-1.3) APTT (26.4-36.2) SECONDS Sodium (137-145) mmol/L Potassium (3.4-5.1) mmol/L Chloride (98-107) mmol/L Carbon Dioxide (22-32) mmol/L BUN (9-20) mg/dL Creatinine (0.66-1.25) mg/dL Estimated GFR (>60) mL/min BUN/Creatinine Ratio (6-22) Glucose (80-110) mg/dL Lactate 1.8 (0.7-2.1) mmol/L Calcium (8.4-10.2) mg/dL Total Bilirubin (0.2-1.3) mg/dL AST (17-59) IU/L ALT (<50) IU/L Alkaline Phosphatase (38-126) U/L Total Protein (6.3-8.2) g/dL Albumin (3.5-5.0) g/dL Globulin (1.7-4.1) g/dL Albumin/Globulin Ratio (1.0-2.8) Amylase 62 (30-110) U/L Lipase (23-300) U/L Procalcitonin < 0.05 (<0.5) ng/mL Urine RBC (0-5/HPF) Urine WBC (0-5/HPF) Urine Bacteria (None) Ur Culture Indicated? 11/11/19 Range/Units 12:48 WBC (4.5-11.0) X10^3/uL RBC (4.5-5.9) X10^6/uL Hgb (13.5-17.5) g/dL Hct (41-53) % MCV (80-100) fL MCH (26-34) PG MCHC (30-36) % RDW (11.6-14.8) % Plt Count (150-400) X10^3/uL Neut % (Auto) (50-75) % Lymph % (Auto) (25-40) % [place] % (Auto) (3-14) % Eos % (Auto) (2-4) % Baso % (Auto) (0-2) % Neut # (Auto) (3487-4703) /uL Lymph # (Auto) (7348-0884) /uL [place] # (Auto) (0-900) /uL Eos # (Auto) (0-450) /uL Baso # (Auto) (0-100) /uL PT (10.1-12.7) SECONDS INR (0.9-1.3) APTT (26.4-36.2) SECONDS Sodium (137-145) mmol/L Potassium (3.4-5.1) mmol/L Chloride (98-107) mmol/L Carbon Dioxide (22-32) mmol/L BUN (9-20) mg/dL Creatinine (0.66-1.25) mg/dL Estimated GFR (>60) mL/min BUN/Creatinine Ratio (6-22) Glucose (80-110) mg/dL Lactate (0.7-2.1) mmol/L Calcium (8.4-10.2) mg/dL Total Bilirubin (0.2-1.3) mg/dL AST (17-59) IU/L ALT (<50) IU/L Alkaline Phosphatase (38-126) U/L Total Protein (6.3-8.2) g/dL Albumin (3.5-5.0) g/dL Globulin (1.7-4.1) g/dL Albumin/Globulin Ratio (1.0-2.8) Amylase (30-110) U/L Lipase (23-300) U/L Procalcitonin (<0.5) ng/mL Urine RBC 0-1/hpf (0-5/HPF) Urine WBC 1-5/hpf (0-5/HPF) Urine Bacteria Few (2-10) H (None) Ur Culture Indicated? Cult not indicated Urine Dip Bedside Urine Glucose 500 mg/dl Bedside Urine Bilirubin - Negative Bedside Urine Ketone - Negative Urine Specific [place] 1.030 Bedside Urine Occult Blood - Negative Bedside Urine pH 5.5 Bedside Urine Protein +/- 15 Bedside Urine Urobilinogen - Negative Bedside Urine Nitrite - Negative Bedside Urine Leukocytes - Negative Esterase Discharge Plan Departure Patient Disposition: Home Clinical Impression: Right ureteral calculus Discharge Date/Time: 11/11/19 16:26 Instructions: DI for Kidney Stones Activity Restrictions/Additional Instructions: Thank you for trusting us with your care today. Today your CT shows 2 large right-sided kidney stones in her right ureter I sent a prescription of Flomax pain meds and nausea medication to the [facility] Please follow-up with primary care provider Please also follow-up with Dr. Simms from Urology. His office phone numbers included. [phone] I have given you a prescription of Toradol. This is an NSAID. Do not combine it with other NSAIDs such as Aleve or ibuprofen. I suggest taking it with some food, as it can irritate your stomach. Please monitor for signs of infection such as fever, burning when you urinate etcetera Please come back to the emergency department for any acute concern Prescriptions: New ondansetron 4 mg tablet,disintegrating 4 mg PO Q6H PRN (Reason: nausea and vomiting) Qty: 14 RF: 0 ketorolac 10 mg tablet 10 mg PO TID PRN (Reason: pain) Qty: 15 RF: 0 tamsulosin 0.4 mg capsule 0.4 mg PO DAILY Qty: 7 RF: 0 No Action rosuvastatin 40 mg tablet 40 mg PO DAILY RF: 0 fenofibrate nanocrystallized 145 mg tablet 145 mg PO DAILY RF: 0 Bydureon BCise 2 mg/0.85 mL auto-injector 2 mg SUBCUT QWEEK RF: 0 metformin 500 mg tablet 500 mg PO BID RF: 0 chlorthalidone 50 mg tablet 50 mg PO DAILY RF: 0 amlodipine 10 mg tablet 10 mg PO DAILY RF: 0 losartan 100 mg tablet 100 mg PO DAILY RF: 0 Lantus Solostar U-100 Insulin 100 unit/mL (3 mL) insulin pen 26 units subcut DAILY RF: 0 melatonin 1 tab PO BEDTIME PRN (Reason: Sleep) RF: 0 Referrals: Patricia Blair [Primary Care Provider] - Julio Simms MD [Physician] -
[2019-11-11 15:42] VITALS: BP 179/95; PULSE 102; RESP 16; O2SAT 100
== END 2019-11-11 16:26 | disposition home or self-care (01) ==
PROVIDERS: Emergency Medicine; Emergency Provider Nurse Practitioner Family; PCP Internal Medicine
DX: N20.1 Calculus of ureter (principal); Z87.442 Personal history of urinary calculi
CPT/HCPCS: 36415; 74177; 80053; 81003; 81015; 82150; 83605; 83690; 84145; 85025; 85610; 85730; 96361; 96374; 96375; 99284; J1885; J2405; Q9967

== ENCOUNTER 2019-11-19 11:17 | Day surgery (SDC) | payer MEDICARE, OTHER, SELFPAY ==
[2019-11-19 11:45] VITALS: BP 155/92; PULSE 109; RESP 18; TEMP 36.2; O2SAT 99; BMI 28.0
--- NOTE | 2019-11-19 12:07 | PM.PREOP ---
Pre-operative Note Interval Note History & Physical reviewed/Exam performed by Physician: Yes Changes to H&P: No H&P completed within 30 days and has changed as indicated here:: There is no change in the history and physical examination scanned in from 11/18/2019 on file.
[2019-11-19] MEDS: CEFAZOLIN 2 GM/100 ML FROZ.PIGGY IV (12:30)
--- NOTE | 2019-11-19 12:43 | SUR.OPER ---
Lithotomy on padded OR bed, head on pillow, arms secured on padded arm boards at <90 degrees abduction. Legs secured in padded yellow fins stirrups.
--- NOTE | 2019-11-19 13:39 | P.OP_ITS ---
Operative Date/Time/Diagnoses Date of procedure: 11/19/19 Time of procedure: 13:39 Pre-op diagnosis: 1. Large obstructing proximal right ureteral calculi x2 (greater than 1 cm each). 2. Intractable right renal colic Post-op diagnosis: same Procedure & Clinicians Procedure: 1. Cystoscopy and right ureteral stent placement x 2. 2. Cystoscopy and right ureteroscopy. Same procedure as scheduled: No (A 2nd ureteral stent was placed secondary to proximal migration of 1st) Indications: 1. Obstructing right proximal ureteral calculi x2. 2. Intractable right renal colic Surgeon: Julio Simms Click Yes if Unassisted: Yes Anesthesia Type: General Operative Notes Findings: 1. 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 2. External sphincter coapted. 3. Prostate 3.5 cm length with mild lateral lobe hyperplasia. 4. Bladder 1+ trabeculation normal orifices bilaterally. There were numerous tiny calcifications dependently in the bladder floor. 5. A 6 Prydeinig x 24 cm ureteral stent was initially placed. Unfortunately his anesthesia was light at time of Glidewire removal and the stent migrated proximally out of the bladder proper. Despite numerous attempts to engage the distal end of the stent with a helical stone basket it could not be engaged and removed. Therefore a 2nd, 6 Prydeinig x 26 cm double-J ureteral stent was placed satisfactorily under direct and fluoroscopic guidance. Closure Type: not applicable Specimen(s): none sent Applied: other (1. 6 Prydeinig x 24 cm. and 6 Prydeinig x 26 cm. Double-J ureteral stents ) Estimated Blood Loss (mL): 0 Blood products transfused: none Procedure in detail: Patient was positioned supine was administered general anesthesia. He was then repositioned in semi lithotomy in the lower abdomen genitalia and groin were prepped and draped in sterile fashion. The 22 Prydeinig panendoscope was passed in lower urinary tract with the findings as described above the above-described bulbar stricture was encountered. A 0.35 G all IDU wire was advanced more proximally in the lower urinary tract. The panendoscope was then passed proximally over the Glidewire in it and effectively gently disrupted the soft 14 Prydeinig stricture. The same Gemma DE wire was then advanced into the right collecting system under direct and fluoroscopic guidance. Over this a 6 Prydeinig by 24 cm double-J ureteral stent was advanced again under direct and fluoroscopic guidance. During the removal of the wire and patient was under light anesthesia and closed his knees and flexed is hips resulting in proximal migration of the distal end of the ureteral stent to within the distal ureter. The semi rigid ureteral scope was then prepared and was advanced and lower urinary tract and then into the right distal ureter under direct visualization the distal end of the stent was seen a 4 wire helical basket was then utilized to attempt to engage the stent but this was futile and after multiple attempts was abandoned. The pant the ureteral scope was then backloaded out of the urinary tract and the panendoscope was then front loaded on the Glidewire. A a 6 Frenchx 26 cm double-J ureteral stent was then selected. This was passed over the Glidewire under direct and fluoroscopic vision. It was positioned in satisfactory position. No retrieval line was left attached. The bladder was then drained completely and all instrumentation removed final time. Patient was then repositioned supine, was awakened, and transferred to [facility] in stable condition. Complications: other (Proximal migration of initially placed right ureteral stent. Inability to retrieve it due to limited ureteroscopic disposable devices) Post-operative Condition: stable Disposition: PACU Plan for aftercare: 1. Outpatient appointment with [facility] 3-4 weeks. 2. Likely right ureteroscopic laser lithotripsy (seems like radiolucent calculi), and removal of right ureteral stents.
[2019-11-19] MEDS: LACTATED RINGERS 1,000 ML 42 ML IV (13:45)
[2019-11-19 13:50] VITALS: BP 167/106; PULSE 108; RESP 16; TEMP 36.6; O2SAT 95
[2019-11-19 13:55] VITALS: BP 121/67; PULSE 94; RESP 16; O2SAT 95
[2019-11-19 14:00] VITALS: BP 119/63; PULSE 88; RESP 14; O2SAT 95
[2019-11-19 14:05] VITALS: BP 142/83; PULSE 90; RESP 16; TEMP 37.1; O2SAT 97
--- NOTE | 2019-11-19 14:15 | SUR.PHASEII ---
pt up to bathroom at time of admit into phase II
--- NOTE | 2019-11-19 14:20 | SUR.PHASEII ---
pt. voided, stated it was a little painful gave it a 5 on pain scale 0-10. After void, no pain, couple dropletts of blood in toilet
[2019-11-19 14:25] VITALS: BP 180/82; PULSE 84; RESP 15; TEMP 36.2; O2SAT 100
--- NOTE | 2019-11-19 14:41 | SUR.PHASEII ---
per request of pts family, tamsulosin rx was phoned into [facility] in [place] rather than the [facility] pharmacy
== END 2019-11-19 14:40 | disposition home or self-care (01) ==
PROVIDERS: PCP Internal Medicine; Referring Provider Specialist; Visit Provider Specialist
PROC: (CPT 52332; principal; 2019-11-19 12:15)
DX: N20.1 Calculus of ureter (principal); N40.1 Benign prostatic hyperplasia with lower urinary tract symptoms; N52.9 Male erectile dysfunction, unspecified; E11.9 Type 2 diabetes mellitus without complications; Z79.4 Long term (current) use of insulin; I10 Essential (primary) hypertension
CPT/HCPCS: 52332; 76000; J0690; J2405; J2704; J3010

== ENCOUNTER 2022-06-09 19:00 | Inpatient (IN) | payer MEDICARE, OTHER, SELFPAY ==
[2022-06-09] VITALS (31 sets, daily range): BP systolic 90–206; BP diastolic 55–130; PULSE 67–170; RESP 0–51; TEMP 36.8–39.9; O2SAT 77–100; BMI 29.9
--- NOTE | 2022-06-09 19:24 | DI.RAD.S_ITS ---
PROCEDURE: XR CHEST 2V INDICATIONS: shortness of breath TECHNIQUE: 2 views of the chest were acquired. COMPARISON: None. FINDINGS: Surgical changes and devices: None. Lungs and pleura: Lungs are clear. No pleural effusions or pneumothorax. Mediastinum: Mediastinal contours are normal. Heart size is normal. Bones and chest wall: No suspicious bony abnormalities. Soft tissues appear unremarkable. IMPRESSION: Reduced inspiratory volume, no acute disease when this factor is taken into account. Dictated by: Omid Pichardo M.D. on 06/09/2022 at 20:08 Approved by: Omid Pichardo M.D. on 06/09/2022 at 20:08
--- NOTE | 2022-06-09 20:02 | DI.CT.S_ITS ---
PROCEDURE: CT ABDOMEN PELVIS W CON INDICATIONS: abd pain, fever, developing sepsis TECHNIQUE: After the administration of intravenous contrast, axial sections acquired from the lung bases to the pubic symphysis. Coronal and sagittal reformats were performed. For radiation dose reduction, the following was used: automated exposure control, adjustment of mA and/or kV according to patient size. COMPARISON: [facility], CT, CT ABDOMEN PELVIS W CON, 11/11/2019, 14:09. [facility], CT, CT ABDOMEN PELVIS W CON, 06/05/2018, 13:08. FINDINGS: Image quality: Excellent. Lung bases: Unremarkable. Heart: No significant findings. ABDOMEN: Liver: Unremarkable. Gallbladder: Unremarkable. Biliary ducts: Unremarkable. Pancreas: Unremarkable. Spleen: Unremarkable. Adrenal Glands: Unremarkable. Kidneys and Ureters: The right kidney contains a upper pigtail of the double pigtail right ureteral stent. There is no right-sided hydronephrosis or hydroureter. The left kidney demonstrates slight prominence of the central renal collecting system and a slight degree Olivia renal edema. A urinary tract stone, is not seen on the left. Stomach and Bowel: Stomach, small bowel loops, and colon are unremarkable. Peritoneum: No abnormal intraperitoneal fluid. No free air. Ventral Wall: No hernias. Abdominal Nodes: No retroperitoneal or mesenteric adenopathy by size criteria. Vessels: Aorta and inferior vena cava are normal in size. PELVIS: Pelvic Organs: Unremarkable. Bladder: Unremarkable. Pelvic Nodes: No enlarged lymph nodes. Miscellaneous: No hernias are seen. Bones: Unremarkable. IMPRESSION: No abscess found, no evidence of colitis or diverticulitis, or appendicitis. Double pigtail right ureteral stent is present, without right-sided hydronephrosis or retained calculus. On the left there is mild prominence of the central renal collecting system but an obstructive urinary tract stone more distally within the ureter is not seen. Dictated by: Omid Pichardo M.D. on 06/09/2022 at 21:21 Approved by: Omid Pichardo M.D. on 06/09/2022 at 21:25
[2022-06-09] MEDS: cefTRIAXone 2,000 MG in SODIUM CHLORIDE 0.9% 100 ML 200 MG IV (20:13)
[2022-06-09] MEDS: SODIUM CHLORIDE 0.9% 920.79 ML IV (20:17)
[2022-06-09] MEDS: metroNIDAZOLE 500 MG/100 ML PIGGYBACK 100 MG IV (20:17)
[2022-06-09 20:36] LABS: Appearance Urine UA SL CLOUDY; Bilirubin Urine UA NEGATIVE (NEGATIVE); Color Urine UA YELLOW; Glucose Urine UA NEGATIVE (Negative); Ketones Urine UA NEGATIVE (NEGATIVE); Leukocyte Esterase Urine UA 2+ (NEGATIVE); Nitrite Urine UA NEGATIVE (Negative); Occult Blood Urine UA 1+ (Negative); Protein Urine UA 1+ (Negative); Urobilinogen Urine UA 0.2 E.U./dL (0.2)
[2022-06-09 20:40] LABS: Hematocrit 38.2 % (41-53); Hemoglobin 13.3 g/dL (13.5-17.5); Mean Corpuscular HGB Conc 34.8 % (30-36); Mean Corpuscular Hemoglobin 28.5 PG (26-34); Mean Corpuscular Volume 81.8 fL (80-100); Platelet Count 156 X10^3/uL (150-400); Red Blood Cell Count 4.66 X10^6/uL (4.5-5.9); White Blood Cell Count 29.1 X10^3/uL (4.5-11.0)
[2022-06-09 20:43] LABS: Add Manual Diff / Slide Review YES
[2022-06-09 20:46] LABS: PTT Partial Thromboplastin Tim 31 SECONDS (26-36)
[2022-06-09 20:48] LABS: Alanine Aminotransferase 16 IU/L (<50); Albumin 4.2 g/dL (3.5-5.0); Albumin Globulin Ratio 1.2 (1.0-2.8); Alkaline Phosphatase 66 U/L (38-126); Aspartate Aminotransferase 31 IU/L (17-59); BUN Creatinine Ratio 13.8 (6-22); Bilirubin Total 2.2 mg/dL (0.2-1.3); Blood Urea Nitrogen 22 mg/dL (9-20); Calcium 8.1 mg/dL (8.4-10.2); Carbon Dioxide 23 mmol/L (22-32); Chloride 96 mmol/L (98-107); Creatine Kinase 59 U/L (55-170); Estimated Glomerular Filt Rate 45 mL/min (>60); Globulin 3.4 g/dL (1.7-4.1); Glucose 262 mg/dL (80-110); HEMOLYSIS 15 (0-50); Potassium 3.6 mmol/L (3.4-5.1); Sodium 135 mmol/L (137-145); Total Protein 7.6 g/dL (6.3-8.2)
[2022-06-09 20:50] LABS: Bacteria Urine Many (>30); Culture Indicated Urine Specimen Cultured; RBC Urine 0-1/HPF (0-5/HPF); Squamous Epithelial Cell Urine None Seen (0-5/HPF); WBC Urine 30-100/HPF (0-5/HPF)
[2022-06-09 20:56] LABS: INR 1.6 (0.9-1.3); Prothrombin Time 18.9 SECONDS (10.1-12.7)
[2022-06-09 20:57] LABS: D Dimer 821 ng/ml (<500)
[2022-06-09 21:28] LABS: Troponin I 0.924 ng/mL (0.01-0.034)
[2022-06-09 21:29] LABS: Anisocytosis 1+; Neutrophils Absolute Manual 27354 /uL (3000-5900); Total Cells Counted 100
--- NOTE | 2022-06-09 21:43 | ED_ITS ---
HPI - General Adult General Chief complaint: Abdominal Pain Stated complaint: Vomiting, Stomach cramps, SOB Time Seen by Provider: 06/09/22 19:43 History of Present Illness HPI narrative: 71-year-old gentleman with history of hypertension, type 2 diabetes, hyperlipidemia, prior kidney stones presents with 12 hours of increasing fevers, fatigue, overall altered mental status, increasing abdominal pain. He denies any significant cough, chest pain, palpitations, lower extremity edema. He states that he is able to void but it is only intervals and he frequently wears a incontinence pad. He has not been having any diarrhea or constipation. He has been passing gas. Reports no significant headache. They report that he has been significantly fatigued but is otherwise cognitively intact. Related Data Home Medications Medication Instructions Recorded Confirmed amlodipine 10 mg tablet 10 mg PO DAILY 06/05/18 11/19/19 chlorthalidone 50 mg tablet 50 mg PO DAILY 06/05/18 11/19/19 insulin glargine 100 unit/mL (3 26 units SUBCUT DAILY 06/05/18 11/19/19 mL) subcutaneous pen losartan 100 mg tablet 100 mg PO DAILY 06/05/18 11/19/19 metformin 500 mg tablet 500 mg PO BID 06/05/18 11/19/19 exenatide microspheres 2 mg/0.85 2 mg SUBCUT QWEEK 11/11/19 11/19/19 mL subcutaneous auto-injector ([employer]) fenofibrate nanocrystallized 145 145 mg PO DAILY 11/11/19 11/19/19 mg tablet rosuvastatin 40 mg tablet 40 mg PO DAILY 11/11/19 11/19/19 Previous Rx's Medication Instructions Recorded oxycodone 5 mg capsule 5 mg PO Q4H PRN pain #14 caps 11/19/19 tamsulosin 0.4 mg capsule 0.4 mg PO DAILY #60 caps 11/19/19 Allergies Allergy/AdvReac Type Severity Reaction Status Date / Time levofloxacin [From Levaquin] Allergy Rash Verified 06/09/22 19:12 Penicillins Allergy Rash Verified 06/09/22 19:12 Review of Systems Review of Systems Narrative: Remainder of complete review of systems is otherwise unremarkable except for that included in the HPI. Patient History Medical History History of kidney stones Hyperlipidemia Hypertension Kidney stones Type 2 diabetes mellitus Social History household members: spouse Smoking Status: Never smoker alcohol intake: current Smoking Status: Never smoker alcohol intake frequency: holidays/special occasions only Substance Use Type: does not use Exam Initial Vital Signs Initial Vital Signs: Vital Signs Temperature 98.3 F 06/09/22 19:06 Pulse Rate 117 H 06/09/22 19:06 Respiratory Rate 35 H 06/09/22 19:06 Blood Pressure 134/75 06/09/22 19:06 Pulse Oximetry 98 06/09/22 19:06 Oxygen Delivery Method 06/09/22 19:06 General: Acutely ill-appearing, pale, significantly fatigued but will respond to direct questions HEENT: Moist mucous membranes, normal sclera with reactive pupils, Neck: No JVD, supple Respiratory: Lungs are clear to auscultation, no wheezing no rales no rhonchi. Full and symmetrical air movement, no respiratory distress appreciated Cardiac: Tachycardic without murmurs Abdomen: Mild distention, diffuse abdominal pain without rebound or guarding, no flank pain Skin: Pale but otherwise Warm and dry, no rashes Neurologic: Globally weak but Grossly neurologically intact with no obvious asymmetries or abnormalities Extremities: No trauma, well perfused Psych: Cooperative, significant fatigue Procedures Central Line Placement Right IJ: Time of procedure: 23:00 Time Out Performed: Yes Patient Placed on Monitor/Pulse Ox: Yes MD Prep: mask, gown and gloves Central Line Prep: Chlorhexidine scrub Ultrasound Used for Placement: Yes Central Line Lumen Inserted: triple Post Procedure: sutured in place, good blood return, all ports aspirated, flushed, capped and sterile dressing applied Post Procedure X-Ray: tip of catheter in good position and no pneumothorax seen Patient Tolerated Procedure: Well Complications: none Intubation Time of Intubation: 23:00 Time out performed: Yes sedative: Etomidate Mg Given: 20 paralytic: Succinylcholine Mg Given: 100 Laryngoscope: fiber optic video scope ET Tube Size: 8 ET Tube Uncuffed: No Tube Secured Depth (cm): 24 Tube Secured Location: teeth Tube Placement Confirmation: Visualized tube passing through cords, Equal breath sounds bilaterally, No breath sounds over epigastrium, Confirmation by capnometry and Chest Xray Patient Tolerated Procedure: Well Course Orders Ordered: ED Orders 06/09/22 19:24 XR chest 2V Stat EKG-12 Lead Stat Measure peak expiratory flow ONCE RT Consult Eval and Treat Now 06/09/22 20:00 Complete Blood Count AUTO DIFF Stat Comprehensive Metabolic Panel Stat D Dimer Stat Hemoglobin A1C% w Est Avg Glu Stat Lactate (Lactic Acid) Stat Partial Thromboplastin Time Stat Procalcitonin Stat Prothrombin Time INR Stat Troponin & CK Cardiac Panel Stat 06/09/22 20:02 CT abdomen pelvis w con Stat 06/09/22 20:03 EKG-12 Lead Stat 06/09/22 20:14 Urinalysis and Microscopic Stat Urine Culture Stat 06/09/22 20:28 Blood Culture Stat 06/09/22 22:13 COVID19 -Nasal RAPID/Pre-Proc Stat Trop I [Troponin I] Stat 06/09/22 22:31 Chest [XR chest 1V] Stat 06/09/22 23:10 CT angio chest PE protocol Stat 06/09/22 23:30 Consult to Tele-electrician apprentice Routine 06/09/22 23:34 Consult to Physician Stat 06/09/22 23:45 Arterial Blood Gas Daily 06/10/22 00:22 Arterial Blood Gas Daily 06/10/22 05:00 Complete Blood Count AUTO DIFF DAILY Comprehensive Metabolic Panel DAILY Magnesium DAILY Prothrombin Time INR DAILY 06/11/22 05:00 Magnesium DAILY Prothrombin Time INR DAILY 06/11/22 23:45 Arterial Blood Gas Daily 06/12/22 05:00 Magnesium DAILY Prothrombin Time INR DAILY Dextrose (Dextrose 50 % In Water 25 Gm/50 Ml Syringe) 25 gm IV PRN PRN PRN Reason: Hypoglycemia Heparin Sodium (Porcine) (Heparin 5,000 Unit/Ml Vial) 5,000 unit SUBCUT BID [facility] Last Admin: 06/10/22 01:33 Dose: 5,000 unit Documented By: DIEGO Propofol (Propofol) 1,000 mg in 100 mls @ 2.762 mls/hr IV TITRATE [facility]; Protocol Last Titration: 06/10/22 01:19 Dose: 15 mcg/kg/min, 8.287 mls/hr Documented By: Titration: 06/10/22 00:30 Dose: 20 mcg/kg/min, 11.049 mls/hr Documented By: Titration: 06/09/22 23:10 Dose: 25 mcg/kg/min, 13.812 mls/hr Documented By: Titration: 06/09/22 23:06 Dose: 20 mcg/kg/min, 11.049 mls/hr Documented By: Titration: 06/09/22 23:03 Dose: 15 mcg/kg/min, 8.287 mls/hr Documented By: Admin: 06/09/22 22:57 Dose: 10 mcg/kg/min, 5.525 mls/hr Documented By: RL Amiodarone HCl/Dextrose (Nexterone) 360 mg in 200 mls @ 33.333 mls/hr IV NOW ONE; Protocol Stop: 06/10/22 04:48 Fentanyl 1,000 mcg/ Dextrose 250 mls @ 16.114 mls/hr IV TITRATE [facility]; Protocol Last Titration: 06/10/22 01:00 Dose: 0.3 mcg/kg/hr, 6.906 mls/hr Documented By: Titration: 06/10/22 00:30 Dose: 0.5 mcg/kg/hr, 11.51 mls/hr Documented By: Admin: 06/10/22 00:00 Dose: 0.7 mcg/kg/hr, 16.114 mls/hr Documented By: RF Cefepime HCl 2 gm/ Sodium (Chloride) 100 mls @ 200 mls/hr IV Q12H [facility] Last Admin: 06/10/22 01:22 Dose: 200 mls/hr Documented By: RF Phenylephrine HCl 20,000 mcg/ (Dextrose) 250 mls @ 75 mls/hr IV TITRATE [facility]; Protocol Last Admin: 06/10/22 00:49 Dose: 100 mcg/min, 75 mls/hr Documented By: RF Vasopressin 40 unit/ Sodium (Chloride) 102 mls @ 4.5 mls/hr IV CONT [facility] Last Admin: 06/10/22 01:49 Dose: 4.5 mls/hr Documented By: RF Vancomycin HCl/Dextrose (Vancomycin) 2,000 mg in 400 mls @ 200 mls/hr IV NOW ONE Stop: 06/10/22 02:44 Last Admin: 06/10/22 01:09 Dose: 200 mls/hr Documented By: RF Vancomycin HCl/Dextrose (Vancomycin) 1,500 mg in 300 mls @ 200 mls/hr IV Q24H [facility] Metronidazole (Flagyl) 500 mg in 100 mls @ 100 mls/hr IV Q6H [facility] Insulin Glargine (Insulin Glargine 100 Unit/Ml 3ml Pen) 26 unit SUBCUT DAILY [facility] Insulin Human Lispro (Insulin Lispro 100 Unit/Ml 3ml Vial) 0 unit SUBCUT ACHS [facility]; Protocol Pantoprazole Sodium (Pantoprazole 40 Mg Vial) 40 mg IV DAILY [facility] Vancomycin HCl (Vancomycin Per Pharmacy) 1 request MISC NOW ONE Stop: 06/10/22 00:37 Discontinued Medications Acetaminophen (Acetaminophen 325 Mg Tablet) 975 mg PO NOW ONE Stop: 06/09/22 21:42 Last Admin: 06/09/22 22:05 Dose: 975 mg Documented By: NR Amiodarone HCl (Amiodarone 150 Mg/3 Ml Vial) 300 mg IV NOW ONE Stop: 06/09/22 22:50 Fentanyl (Fentanyl 100 Mcg/2 Ml Inj) 200 mcg IV NOW ONE Stop: 06/09/22 23:10 Last Admin: 06/09/22 23:15 Dose: 200 mcg Documented By: JULIETH Fentanyl (Fentanyl 100 Mcg/2 Ml Inj) 200 mcg IV NOW ONE Stop: 06/09/22 23:48 Last Admin: 06/09/22 23:50 Dose: 200 mcg Documented By: BT Sodium Chloride (Normal Saline 0.9%) 2,762.37 mls @ 920.79 mls/hr 30 ml/kg infuse over 3 hr (2762.37 ml) IV NOW ONE Stop: 06/09/22 23:01 Last Admin: 06/09/22 20:17 Dose: 920.79 mls/hr Documented By: NR Ceftriaxone Sodium 2,000 mg/ (Sodium Chloride) 100 mls @ 200 mls/hr IV NOW ONE Stop: 06/09/22 20:06 Last Infusion: 06/09/22 21:10 Dose: 0 mls/hr Documented By: Admin: 06/09/22 20:13 Dose: 200 mls/hr Documented By: NR Metronidazole (Flagyl) 500 mg in 100 mls @ 100 mls/hr IV NOW ONE Stop: 06/09/22 21:04 Last Infusion: 06/09/22 22:15 Dose: 0 mls/hr Documented By: Admin: 06/09/22 20:17 Dose: 100 mls/hr Documented By: NR Sodium Chloride (Normal Saline 0.9%) 1,000 mls @ 125 mls/hr IV CONT [facility] Ceftriaxone Sodium 1,000 mg/ (Sodium Chloride) 100 mls @ 200 mls/hr IV DAILY [facility] Metronidazole (Flagyl) 500 mg in 100 mls @ 100 mls/hr IV Q6H [facility] Insulin Human Lispro (Insulin Lispro 100 Unit/Ml 3ml Vial) 0 unit SUBCUT Q6H [facility]; Protocol Metoclopramide HCl (Metoclopramide 10 Mg/2 Ml Inj) 10 mg IV NOW ONE Stop: 06/09/22 22:13 Last Admin: 06/09/22 22:18 Dose: 10 mg Documented By: NR Vital Signs Vital signs: Vital Signs - 8 hr 06/09/22 19:06 06/09/22 19:19 06/09/22 19:20 Temperature 98.3 F Pulse Rate 117 H 124 H Respiratory Rate 35 H Blood Pressure 134/75 139/80 Pulse Oximetry 98 95 Oxygen Delivery Method Room Air Room Air 06/09/22 19:20 06/09/22 19:30 06/09/22 19:30 Temperature Pulse Rate 122 H 116 H Respiratory Rate 43 H Blood Pressure 136/78 Pulse Oximetry 97 96 Oxygen Delivery Method 06/09/22 20:00 06/09/22 20:30 06/09/22 20:30 Temperature Pulse Rate 119 H 120 H Respiratory Rate 39 H 41 H Blood Pressure 132/79 Pulse Oximetry 98 97 Oxygen Delivery Method 06/09/22 20:45 06/09/22 20:45 06/09/22 21:07 Temperature Pulse Rate 118 H 67 Respiratory Rate 30 H Blood Pressure 127/80 Pulse Oximetry 98 95 Oxygen Delivery Method 06/09/22 21:11 06/09/22 21:11 06/09/22 22:05 Temperature 98.3 F Pulse Rate 122 H Respiratory Rate 31 H Blood Pressure 137/76 Pulse Oximetry 99 Oxygen Delivery Method 06/09/22 21:15 06/09/22 21:15 06/09/22 21:30 Temperature Pulse Rate 119 H Respiratory Rate 25 H Blood Pressure 138/78 146/84 H Pulse Oximetry 100 Oxygen Delivery Method 06/09/22 21:30 06/09/22 21:46 06/09/22 21:46 Temperature Pulse Rate 124 H 139 H Respiratory Rate 25 H 42 H Blood Pressure 150/100 H Pulse Oximetry 97 95 Oxygen Delivery Method 06/09/22 22:00 06/09/22 22:00 06/09/22 22:15 Temperature Pulse Rate 143 H Respiratory Rate 37 H Blood Pressure 153/77 H 128/76 Pulse Oximetry 94 Oxygen Delivery Method 06/09/22 22:15 06/09/22 22:15 06/09/22 22:21 Temperature Pulse Rate 144 H Respiratory Rate 40 H Blood Pressure 128/76 160/104 H Pulse Oximetry 81 L Oxygen Delivery Method 06/09/22 22:21 06/09/22 22:30 06/09/22 22:30 Temperature 103.8 F H Pulse Rate 150 H 170 H Respiratory Rate 48 H 51 H Blood Pressure 174/114 H Pulse Oximetry 92 77 L Oxygen Delivery Method 06/09/22 22:40 06/09/22 22:40 06/09/22 22:45 Temperature 103.8 F H Pulse Rate 162 H Respiratory Rate 22 Blood Pressure 206/130 H 170/100 H Pulse Oximetry 96 Oxygen Delivery Method 06/09/22 22:45 06/09/22 22:49 06/09/22 22:50 Temperature 103.8 F H Pulse Rate 156 H Respiratory Rate 0 L Blood Pressure 159/99 H 139/80 Pulse Oximetry 84 L Oxygen Delivery Method 06/09/22 22:52 06/09/22 22:55 06/09/22 23:00 Temperature Pulse Rate Respiratory Rate Blood Pressure 115/69 120/75 128/77 Pulse Oximetry Oxygen Delivery Method 06/09/22 23:00 06/09/22 23:06 06/09/22 23:10 Temperature 103.8 F H Pulse Rate 128 H Respiratory Rate 35 H Blood Pressure 153/93 H 113/68 Pulse Oximetry 96 Oxygen Delivery Method 06/09/22 23:10 06/09/22 23:15 06/09/22 22:30 Temperature 103.5 F H Pulse Rate 128 H 150 H Respiratory Rate 30 H 40 H Blood Pressure 147/79 H Pulse Oximetry 98 Oxygen Delivery Method Medical Decision Making Lab Data Result diagrams: 06/09/22 20:00 06/09/22 20:00 Labs: Lab Results 06/09/22 06/09/22 06/09/22 Range/Units 20:00 20:00 20:00 WBC 29.1 H (4.5-11.0) X10^3/uL RBC 4.66 (4.5-5.9) X10^6/uL Hgb 13.3 L (13.5-17.5) g/dL Hct 38.2 L (41-53) % MCV 81.8 (80-100) fL MCH 28.5 (26-34) PG MCHC 34.8 (30-36) % RDW 14.0 (11.6-14.8) % Plt Count 156 (150-400) X10^3/uL Neut % (Auto) Not Reportable Lymph % (Auto) Not Reportable [place] % (Auto) Not Reportable Eos % (Auto) Not Reportable Baso % (Auto) Not Reportable Lymph # (Auto) Not Reportable [place] # (Auto) Not Reportable Baso # (Auto) Not Reportable Total Counted 100 Seg Neutrophils % 82.0 H (38-70) % Band Neutrophils % 12.0 H (3-7) % Lymphocytes % (Manual) 5.0 L (25-45) % Monocytes % (Manual) 1.0 L (2-11) % Neutrophils # (Manual) 83026 H (7777-8467) /uL RBC Morphology See below Anisocytosis 1+ H PT (10.1-12.7) SECONDS INR (0.9-1.3) APTT (26-36) SECONDS D-Dimer (<500) ng/ml Sodium 135 L (137-145) mmol/L Potassium 3.6 (3.4-5.1) mmol/L Chloride 96 L (98-107) mmol/L Carbon Dioxide 23 (22-32) mmol/L BUN 22 H (9-20) mg/dL Creatinine 1.60 H (0.66-1.25) mg/dL Estimated GFR 45 L (>60) mL/min BUN/Creatinine Ratio 13.8 (6-22) Glucose 262 H (80-110) mg/dL Hemoglobin A1c (4.0-6.0) % Lactate 3.0 H (0.7-2.1) mmol/L Calcium 8.1 L (8.4-10.2) mg/dL Total Bilirubin 2.2 H (0.2-1.3) mg/dL AST 31 (17-59) IU/L ALT 16 (<50) IU/L Alkaline Phosphatase 66 (38-126) U/L Total Creatine Kinase (55-170) U/L CK-MB (CK-2) CK-MB (CK-2) Rel Index Troponin I (0.01-0.034) ng/mL Total Protein 7.6 (6.3-8.2) g/dL Albumin 4.2 (3.5-5.0) g/dL Globulin 3.4 (1.7-4.1) g/dL Albumin/Globulin Ratio 1.2 (1.0-2.8) Procalcitonin (<0.5) ng/mL Urine Color Urine Appearance Urine pH (4.5-8.0) Ur Specific [place] (1.000-1.035) Urine Protein (Negative) Urine Glucose (UA) (Negative) g/dL Urine Ketones (NEGATIVE) Urine Occult Blood (Negative) Urine Nitrate (Negative) Urine Bilirubin (NEGATIVE) Urine Urobilinogen (0.2) E.U./dL Ur Leukocyte Esterase (NEGATIVE) Urine RBC (0-5/HPF) Urine WBC (0-5/HPF) Ur Squamous Epith Cells (0-5/HPF) Urine Bacteria (None) Ur Culture Indicated? SARS-CoV-2 (PCR) (Negative) 06/09/22 06/09/22 06/09/22 Range/Units 20:00 20:00 20:00 WBC (4.5-11.0) X10^3/uL RBC (4.5-5.9) X10^6/uL Hgb (13.5-17.5) g/dL Hct (41-53) % MCV (80-100) fL MCH (26-34) PG MCHC (30-36) % RDW (11.6-14.8) % Plt Count (150-400) X10^3/uL Neut % (Auto) Lymph % (Auto) [place] % (Auto) Eos % (Auto) Baso % (Auto) Lymph # (Auto) [place] # (Auto) Baso # (Auto) Total Counted Seg Neutrophils % (38-70) % Band Neutrophils % (3-7) % Lymphocytes % (Manual) (25-45) % Monocytes % (Manual) (2-11) % Neutrophils # (Manual) (0051-5646) /uL RBC Morphology Anisocytosis PT 18.9 H (10.1-12.7) SECONDS INR 1.6 H (0.9-1.3) APTT 31 (26-36) SECONDS D-Dimer 821 H (<500) ng/ml Sodium (137-145) mmol/L Potassium (3.4-5.1) mmol/L Chloride (98-107) mmol/L Carbon Dioxide (22-32) mmol/L BUN (9-20) mg/dL Creatinine (0.66-1.25) mg/dL Estimated GFR (>60) mL/min BUN/Creatinine Ratio (6-22) Glucose (80-110) mg/dL Hemoglobin A1c (4.0-6.0) % Lactate (0.7-2.1) mmol/L Calcium (8.4-10.2) mg/dL Total Bilirubin (0.2-1.3) mg/dL AST (17-59) IU/L ALT (<50) IU/L Alkaline Phosphatase (38-126) U/L Total Creatine Kinase 59 (55-170) U/L CK-MB (CK-2) TNP CK-MB (CK-2) Rel Index TNP Troponin I 0.924 H* (0.01-0.034) ng/mL Total Protein (6.3-8.2) g/dL Albumin (3.5-5.0) g/dL Globulin (1.7-4.1) g/dL Albumin/Globulin Ratio (1.0-2.8) Procalcitonin 4.70 H (<0.5) ng/mL Urine Color Urine Appearance Urine pH (4.5-8.0) Ur Specific [place] (1.000-1.035) Urine Protein (Negative) Urine Glucose (UA) (Negative) g/dL Urine Ketones (NEGATIVE) Urine Occult Blood (Negative) Urine Nitrate (Negative) Urine Bilirubin (NEGATIVE) Urine Urobilinogen (0.2) E.U./dL Ur Leukocyte Esterase (NEGATIVE) Urine RBC (0-5/HPF) Urine WBC (0-5/HPF) Ur Squamous Epith Cells (0-5/HPF) Urine Bacteria (None) Ur Culture Indicated? SARS-CoV-2 (PCR) (Negative) 06/09/22 06/09/22 06/09/22 Range/Units 20:00 20:14 22:13 WBC (4.5-11.0) X10^3/uL RBC (4.5-5.9) X10^6/uL Hgb (13.5-17.5) g/dL Hct (41-53) % MCV (80-100) fL MCH (26-34) PG MCHC (30-36) % RDW (11.6-14.8) % Plt Count (150-400) X10^3/uL Neut % (Auto) Lymph % (Auto) [place] % (Auto) Eos % (Auto) Baso % (Auto) Lymph # (Auto) [place] # (Auto) Baso # (Auto) Total Counted Seg Neutrophils % (38-70) % Band Neutrophils % (3-7) % Lymphocytes % (Manual) (25-45) % Monocytes % (Manual) (2-11) % Neutrophils # (Manual) (8651-1450) /uL RBC Morphology Anisocytosis PT (10.1-12.7) SECONDS INR (0.9-1.3) APTT (26-36) SECONDS D-Dimer (<500) ng/ml Sodium (137-145) mmol/L Potassium (3.4-5.1) mmol/L Chloride (98-107) mmol/L Carbon Dioxide (22-32) mmol/L BUN (9-20) mg/dL Creatinine (0.66-1.25) mg/dL Estimated GFR (>60) mL/min BUN/Creatinine Ratio (6-22) Glucose (80-110) mg/dL Hemoglobin A1c 7.8 H (4.0-6.0) % Lactate (0.7-2.1) mmol/L Calcium (8.4-10.2) mg/dL Total Bilirubin (0.2-1.3) mg/dL AST (17-59) IU/L ALT (<50) IU/L Alkaline Phosphatase (38-126) U/L Total Creatine Kinase (55-170) U/L CK-MB (CK-2) CK-MB (CK-2) Rel Index Troponin I 0.608 H* (0.01-0.034) ng/mL Total Protein (6.3-8.2) g/dL Albumin (3.5-5.0) g/dL Globulin (1.7-4.1) g/dL Albumin/Globulin Ratio (1.0-2.8) Procalcitonin (<0.5) ng/mL Urine Color Yellow Urine Appearance Sl cloudy Urine pH 5.0 (4.5-8.0) Ur Specific [place] 1.010 (1.000-1.035) Urine Protein 1+ H (Negative) Urine Glucose (UA) Negative (Negative) g/dL Urine Ketones Negative (NEGATIVE) Urine Occult Blood 1+ H (Negative) Urine Nitrate Negative (Negative) Urine Bilirubin Negative (NEGATIVE) Urine Urobilinogen 0.2 (0.2) E.U./dL Ur Leukocyte Esterase 2+ H (NEGATIVE) Urine RBC 0-1/hpf (0-5/HPF) Urine WBC 30-100/hpf H (0-5/HPF) Ur Squamous Epith Cells None seen (0-5/HPF) Urine Bacteria Many (>30) H (None) Ur Culture Indicated? Specimen cultured SARS-CoV-2 (PCR) (Negative) 06/09/22 Range/Units 22:13 WBC (4.5-11.0) X10^3/uL RBC (4.5-5.9) X10^6/uL Hgb (13.5-17.5) g/dL Hct (41-53) % MCV (80-100) fL MCH (26-34) PG MCHC (30-36) % RDW (11.6-14.8) % Plt Count (150-400) X10^3/uL Neut % (Auto) Lymph % (Auto) [place] % (Auto) Eos % (Auto) Baso % (Auto) Lymph # (Auto) [place] # (Auto) Baso # (Auto) Total Counted Seg Neutrophils % (38-70) % Band Neutrophils % (3-7) % Lymphocytes % (Manual) (25-45) % Monocytes % (Manual) (2-11) % Neutrophils # (Manual) (5141-6886) /uL RBC Morphology Anisocytosis PT (10.1-12.7) SECONDS INR (0.9-1.3) APTT (26-36) SECONDS D-Dimer (<500) ng/ml Sodium (137-145) mmol/L Potassium (3.4-5.1) mmol/L Chloride (98-107) mmol/L Carbon Dioxide (22-32) mmol/L BUN (9-20) mg/dL Creatinine (0.66-1.25) mg/dL Estimated GFR (>60) mL/min BUN/Creatinine Ratio (6-22) Glucose (80-110) mg/dL Hemoglobin A1c (4.0-6.0) % Lactate (0.7-2.1) mmol/L Calcium (8.4-10.2) mg/dL Total Bilirubin (0.2-1.3) mg/dL AST (17-59) IU/L ALT (<50) IU/L Alkaline Phosphatase (38-126) U/L Total Creatine Kinase (55-170) U/L CK-MB (CK-2) CK-MB (CK-2) Rel Index Troponin I (0.01-0.034) ng/mL Total Protein (6.3-8.2) g/dL Albumin (3.5-5.0) g/dL Globulin (1.7-4.1) g/dL Albumin/Globulin Ratio (1.0-2.8) Procalcitonin (<0.5) ng/mL Urine Color Urine Appearance Urine pH (4.5-8.0) Ur Specific [place] (1.000-1.035) Urine Protein (Negative) Urine Glucose (UA) (Negative) g/dL Urine Ketones (NEGATIVE) Urine Occult Blood (Negative) Urine Nitrate (Negative) Urine Bilirubin (NEGATIVE) Urine Urobilinogen (0.2) E.U./dL Ur Leukocyte Esterase (NEGATIVE) Urine RBC (0-5/HPF) Urine WBC (0-5/HPF) Ur Squamous Epith Cells (0-5/HPF) Urine Bacteria (None) Ur Culture Indicated? SARS-CoV-2 (PCR) Negative (Negative) Urine Dip Bedside Urine Glucose Negative Bedside Urine Bilirubin - Negative Bedside Urine Ketone - Negative Urine Specific [place] 1.02 Bedside Urine Occult Blood +/- Bedside Urine pH 6 Bedside Urine Protein + 30 Bedside Urine Urobilinogen - Negative Bedside Urine Nitrite - Negative Bedside Urine Leukocytes + 70 Esterase Point of care testing: Urine Dip Bedside Urine Glucose Negative Bedside Urine Bilirubin - Negative Bedside Urine Ketone - Negative Urine Specific [place] 1.02 Bedside Urine Occult Blood +/- Bedside Urine pH 6 Bedside Urine Protein + 30 Bedside Urine Urobilinogen - Negative Bedside Urine Nitrite - Negative Bedside Urine Leukocytes + [address] scan - abdomen/pelvis: Radiologist's Impression: FINDINGS:? Image quality:? Excellent.? ? Lung bases:? Unremarkable. Heart:? No significant findings. ? ABDOMEN: Liver:? Unremarkable.? ? Gallbladder:? Unremarkable.? ? Biliary ducts:? Unremarkable.? ? Pancreas:? Unremarkable.? ? Spleen:? Unremarkable.? ? Adrenal Glands:? Unremarkable.? ? Kidneys and Ureters:? The right kidney contains a upper pigtail of the double pigtail right ureteral stent.? There is no right-sided hydronephrosis or hydroureter.? The left kidney demonstrates slight prominence of the central renal collecting system and a slight degree Olivia renal edema.? A urinary tract stone, is not seen on the left. ? Stomach and Bowel:? Stomach, small bowel loops, and colon are unremarkable.? Peritoneum:? No abnormal intraperitoneal fluid.? No free air.? ? Ventral Wall: ? No hernias.? Abdominal Nodes:? No retroperitoneal or mesenteric adenopathy by size criteria.? Vessels:? Aorta and inferior vena cava are normal in size.? ? PELVIS: Pelvic Organs:? Unremarkable.? ? Bladder:? Unremarkable.? ? Pelvic Nodes: No enlarged lymph nodes.? Miscellaneous: No hernias are seen. ? ? ? Bones:? Unremarkable.? IMPRESSION:? No abscess found, no evidence of colitis or diverticulitis, or appendicitis. ?Double pigtail right ureteral stent is present, without right-sided h ydronephrosis or retained calculus.? On the left there is mild prominence of the central renal collecting system but an obstructive urinary tract stone more distally within the ureter is not seen. ? ? Dictated by: Omid Pichardo M.D. on 06/09/2022 at 21:21 ? ? Chest x-ray: Radiologist's Impression: FINDINGS:? ? Surgical changes and devices:? None.? ? Lungs and pleura:? Lungs are clear.? No pleural effusions or pneumothorax.? ? Mediastinum:? Mediastinal contours are normal.? Heart size is normal.? ? Bones and chest wall:? No suspicious bony abnormalities.? Soft tissues appear unremarkable.? ? IMPRESSION:? Reduced inspiratory volume, no acute disease when this factor is taken into account. ? ? Dictated by: Omid Pichardo M.D. on 06/09/2022 at 20:08 ? ? CTA PE study: My Impression: Clinical presentation is much more consistent with flash pulmonary edema rather than aspiration Radiologist's Impression: FINDINGS:? Image quality:? Excellent.? ? Pulmonary arteries:? Pulmonary arteries are normal in size, and demonstrate no intraluminal filling defects to suggest central pulmonary embolism.? ? Lungs and pleura:? Lungs are abnormal with bilateral dense pneumonia or aspiration consolidation.? No pleural effusions or pneumothorax.? Central and peripheral airways are patent.? ? Mediastinum:? Heart size is normal, without pericardial effusion.? No mediastinal or hilar adenopathy.? Thoracic aorta is normal in caliber and enhancement.? Esophagus is normal in caliber, without hiatal hernia.? ? Bones and chest wall:? No suspicious bony lesions.? Ribs and thoracic spine appear intact throughout.? Thyroid gland appears normal where well seen.? No axillary or supraclavicular adenopathy.? ? Abdomen:? Visualized upper abdominal solid organs appear normal in the early arterial phase of enhancement.? ? IMPRESSION:? No pulmonary embolus found.? Dense alveolar consolidation within the posterior lungs bilaterally in this patient with chest plain film earlier same day that had appeared free of such infiltrations.? This implies a high likelihood of aspiration as the underlying cause. ? ? Dictated by: Omid Pichardo M.D. on 06/10/2022 at 0:04 ? ? ECG Data Interpretation: Sinus tachycardia at a rate of 116 Left axis deviation Subtle lateral ST depression QTC prolonged at 583 milliseconds MDM Narrative Medical decision making narrative: 71-year-old gentleman presents acutely ill, febrile pale with severe abdominal pain for further evaluation. Tachycardic, tachypneic, afebrile on presentation and normotensive with oxygen saturations 99% on room air. He has a history of kidney stones and still has the upper pigtail of the double pigtail right ureteral stent without hydronephrosis or hydroureter. Urine sample is obtained and 1725 cc of urine are initially drained. Keith catheter is placed. Urine does look acutely infected. Initial presumption was sepsis or developing sepsis. Fluid resuscitation with 30 particular was initiated. He is allergic to penicillin so rather than Zosyn began with ceftriaxone and Flagyl thinking that this was a GI source. CT scan does not suggest acute abscess, diverticulitis or appendicitis. Some minor prominence of the renal collecting system on the left without obvious signs of obstruction. BPH with acute urinary retention, Keith catheter now in place Acute kidney injury with creatinine increased from 1.3-1.6. Likely compounded by the bladder outlet obstruction and chronic urinary retention. Lactic elevated at 3.0, significantly elevated procalcitonin, urine certainly looks like a urinary tract infection. In the setting of acute urinary retention, pigtail catheter still in place and mild prominence of the collecting system on the right without evidence of stone urology will be consult today. Troponin is elevated at 0.9-4. Priors are not available. He does not have a history of known coronary disease but does have a all appropriate risk factors for such. He is not complaining of chest pain. Will repeat. 1000pm patient is re-evaluated. He is having fever and rigors and Tylenol as administered. His abdominal pain is significantly improved. He is still showin g signs of good peripheral perfusion with warm extremities with good capillary refill and no evidence of hypotension. Findings and concerns are reviewed with the patient and his daughter. Will wait to see repeat troponin prior to determining acuity of hospital needs for admission. 1015pm patient is having an episode of emesis. Currently afebrile. Oxygen saturations are dropping slightly 87% with a good waveform. He started on 2 L of oxygen. Given Reglan. With prolonged QT I do not want to use Zofran. Initial chest x-ray does not suggest significant infiltrates or congestive heart failure. Current access is 2 20 gauge peripheral IVs 1055 Acute deterioration with severe respiratory strip distress, dropping saturations. Patient is moved to room 1 intubated with central line placed. Was initially hypertensive is significantly tachycardic. Ultrasound for central line placement shows no evidence of volume depletion. He is given 5 mg of IV metoprolol with his rate coming down from a sinus tach in the 160 range to the 130 range. Blood pressure was initially 200/110 and is now down to 125/30 with appropriate sedation. No significant debris or edema coming up the ET tube. Currently at a rate of a 130. Post intubation and central line chest x-ray shows flash pulmonary edema. 1105 care is reviewed with the electrician apprentice, Dr. Haskins. With troponin coming down and Urology available to consult he felt that admission to [facility] would be appropriate. Patient is doing better with appropriate sedation. 1110 care is reviewed with Dr. Simms, urology. He will formally consult. Pigtail catheter in place in the right ureter that looks like it was placed in [place] of 2019. His daughter indicates that he was scheduled to have a out however Covid19 made surgical planning challenging and he has not yet had the chance to follow-up since that catheter was placed. 1120 patient is taken to the CT scanner and then will be transferred to the ICU. Care is reviewed with Cary Humphrey [facility] provider. She accepts admission and after the CT scan has been completed the patient will go directly to the intensive care unit. Additional Information: Severe Sepsis Criteria [x ] bacterial source of infection suspected and documented [ ] 2 SIRS Criteria met [ x] HR >90 [ ] RR >20 [ x ] fever or hypothermia [ x ] leukocytosis/leukopenia/bandemia [ ] Evidence of at least 1 organ system dysfunction [ x ] Lactate > 2 [ ] BP < 90 or MAP <65, >40mm decrease from normal baseline [ ] Creat > 2.0 [x ] T. Bili > 2.0 [ ] platelet count < 100k [ ] altered mental status [ ] mechanical ventilation [ ] provider documentation of severe sepsis Severe Sepsis Determination. the patient has been screened and [ x ] DOES meet criteria for severe sepsis [ ] DOES NOT meet criteria for severe sepsis Goal directed treatment Within 3 hours [x ] blood cx drawn prior to abx [ x ] broad spectrum abx started [ x ] lactic acid level checked [ ] lactic redrawn within 6 hours if >2.0 Septic Shock Criteria [ ] lactic > 4 at any time [ ] SBP ,90 or MAP , 65 [ ] documentation of septic shock Time Septic Shock diagnosed: [ ] Septic Shock Determination. the patient has been screened and [ ] DOES meet criteria for septic shock [x ] DOES NOT meet criteria for septic shock Goal directed therapy within 3 hours of septic shock or initial hypotension [ ] 30ml/kg fluid [ ] ABW used [ ] IBW (33.6) used due to BMI > 30 [ ] patient or advocate declining fluid administration after shared decision making conversation Clinical reason for NOT initiating fluid bolus: Within 6 hours (if continued hypotension after fluids or initial lactate >4) [ ] repeat volume status and tissue perfusion assessment documented after fluid bolus was completed at [Date/Time] Must include vital signs, cardiopulmonary exam, capillary refill, peripheral pulse evaluation, skin exam [ ] Initiate vasopressor therapy if persistent hypotension after adequate fluid bolus Critical Care Time Critical Care Time Critical Care Time: Yes Total Critical Care Time: 39 Attestation: Critical care time is separate from other billable procedures. There is a high probability of a significant, sudden or life-threatening deterioration that requires my full and direct attention, intervention and personal management. This critical care time includes consultation with family and other consulting doctors, review of records, and interpretation of data from labs, EKGs and imaging as well as managements of sepsis, acute infection, flash pulmonary edema with acute respiratory deterioration. Discharge Plan Departure Patient Disposition: Admitted As Inpatient Clinical Impression: Acute pyelonephritis, Benign prostatic hyperplasia, Acute urinary retention, Flash pulmonary edema Sepsis Qualifiers: Sepsis type: sepsis due to unspecified organism Sepsis acute organ dysfunction status: with acute organ dysfunction Severe sepsis acute organ dysfunction type: acute renal failure Acute renal failure type: unspecified Severe sepsis shock status: without septic shock Qualified Code(s): A41.9 - Sepsis, unspecified organism Respiratory failure Qualifiers: Chronicity: acute Respiratory failure complication: unspecified whether with hypoxia or hypercapnia Qualified Code(s): J96.00 - Acute respiratory failure, unspecified whether with hypoxia or hypercapnia Admit Date/Time: 06/09/22 23:35 Admit Provider: Maria E Humphrey
[2022-06-09] MEDS: ACETAMINOPHEN 325 MG TABLET 975 MG PO (22:05)
[2022-06-09] MEDS: METOCLOPRAMIDE 10 MG/2 ML INJ IV (22:18)
[2022-06-09 22:27] LABS: Reflexed Lactate in 2 Hours Y
--- NOTE | 2022-06-09 22:31 | DI.RAD.S_ITS ---
PROCEDURE: XR CHEST 1V INDICATIONS: post intubation TECHNIQUE: One view of the chest was acquired. COMPARISON: [facility], CR, XR CHEST 2V, 06/09/2022, 19:27. FINDINGS: Surgical changes and devices: Endotracheal tube has been placed with its tip extending to the inferior margin of the medial clavicular heads. Esophagogastric tube extends into the gastric lumen. Right internal jugular central line has been placed, with tip in the distal SVC. Lungs and pleura: Lungs are abnormal, with moderate pneumonia now present within the right mid and upper lung and a mild degree of perihilar left pneumonia.. No pleural effusions or pneumothorax. Mediastinum: Mediastinal contours appear normal. Heart size is normal. Bones and chest wall: No suspicious bony lesions. Overlying soft tissues appear unremarkable. IMPRESSION: Lines and tubes in normal position. Bilateral pneumonia, right greater than left. This alveolar infiltration rapidly developed and that may indicate aspiration as the underlying cause when compared to the chest plain film shortly before. Dictated by: Omid Pichardo M.D. on 06/09/2022 at 23:02 Approved by: Omid Pichardo M.D. on 06/09/2022 at 23:04
[2022-06-09 22:46] LABS: Troponin I 0.608 ng/mL (0.01-0.034)
[2022-06-09] MEDS: METOPROLOL TARTRATE 5 MG/5 ML INJ 15 MG IV (22:47)
[2022-06-09 22:48] LABS: COVID19 -Nasal RAPID Negative (Negative)
[2022-06-09] MEDS: propofoL 1,000 MG/100 ML VIAL 5.525 MG IV (22:57)
--- NOTE | 2022-06-09 23:10 | DI.CT.S_ITS ---
PROCEDURE: CT ANGIO CHEST PE PROTOCOL INDICATIONS: concern for PE and acute respiratory failure and intubation TECHNIQUE: After the administration of intravenous contrast, 2 mm thick sections acquired from the pulmonary apices to the posterior costophrenic angles. 3-dimensional maximum intensity projection (MIP) coronal and sagittal reformats were then acquired through the thorax. For radiation dose reduction, the following was used: automated exposure control, adjustment of mA and/or kV according to patient size. COMPARISON: [facility], CR, XR CHEST 1V, 06/09/2022, 22:46. [facility], CR, XR CHEST 2V, 06/09/2022, 19:27. FINDINGS: Image quality: Excellent. Pulmonary arteries: Pulmonary arteries are normal in size, and demonstrate no intraluminal filling defects to suggest central pulmonary embolism. Lungs and pleura: Lungs are abnormal with bilateral dense pneumonia or aspiration consolidation. No pleural effusions or pneumothorax. Central and peripheral airways are patent. Mediastinum: Heart size is normal, without pericardial effusion. No mediastinal or hilar adenopathy. Thoracic aorta is normal in caliber and enhancement. Esophagus is normal in caliber, without hiatal hernia. Bones and chest wall: No suspicious bony lesions. Ribs and thoracic spine appear intact throughout. Thyroid gland appears normal where well seen. No axillary or supraclavicular adenopathy. Abdomen: Visualized upper abdominal solid organs appear normal in the early arterial phase of enhancement. IMPRESSION: No pulmonary embolus found. Dense alveolar consolidation within the posterior lungs bilaterally in this patient with chest plain film earlier same day that had appeared free of such infiltrations. This implies a high likelihood of aspiration as the underlying cause. Dictated by: Omid Pichardo M.D. on 06/10/2022 at 0:04 Approved by: Omid Pichardo M.D. on 06/10/2022 at 0:06
[2022-06-09] MEDS: fentaNYL 100 MCG/2 ML INJ 200 MCG IV ×2 (23:15→23:50)
[2022-06-10] VITALS (126 sets, daily range): BP systolic 60–180; BP diastolic 42–100; PULSE 98–113; RESP 9–41; TEMP 37.8–40.3; O2SAT 86–100; BMI 29.9
[2022-06-10] MEDS: fentaNYL 1,000 MCG in DEXTROSE 5% IN WATER 230 ML 16.114 MCG IV
--- NOTE | 2022-06-10 00:01 | PC.NURSE ---
late entry Patient used call light. Patient c/o chills and increasing abdominal pain again. Notified provider. Provider ordered andrew placement and PO Tylenol. Verbal order placed. Oral temperature taken, 98.3F. Andrew catheter placed with ease. Immediate return of 700ml of dark red urine. Provider notified. Tylenol given, patient took with no difficulty. Patient began to c/o nausea. Provider notified, order for IV Reglan. Patient oxygen declined to 88% with good waveform and heart rate sustained in 140s. Provider notified, patient placed on 2L NC. No change in oxygen saturation. Provider notified. Patient moved to room 1. Patient presenting as oxygen hungry, agitated, hands to throat. Oxygen saturation declined and sustaining at 84%. Patient placed on 15L nonrebreather, repositioned and transitioned to BiPAP. Provider arrived in room with plans to intubate. 2235: 24mg Etomidate IV given and flushed 100mg Succinylcholine IV given and flushed for induction 2236: Intubated, 24 at teeth with 8.0 ET tube 2238: OG tube placed Confirmed placement by ascultation Ventilator setting: RR 16, TV 450, PEEP 8 2241: 60mg Propofol pushed by provider for intubation sedation 2245: ET 35 2247: 3mg Metoprolol given IV for elevated BP 2248: 40mg Propofol given by provider 2250: Triple Lumen Central line placed by provider. Confirmed placement of OG ET and central line by XRay. 2257: 40mg Propofol given by provider and soft restraints intitiated. 2305: 40mg Propofol given by provider. Patient agitated and fighting ventilator. 2315: 200mcg Fentanyl IV given. 2320: Patient taken to CT. After CT scan patient was immediately transferred to ICU. Report given at bedside to WHITNEY Eric.
--- NOTE | 2022-06-10 00:12 | P.HP_ITS ---
History of Present Illness History of Present Illness Date Patient Seen: 06/10/22 Time Patient Seen: 00:12 Chief complaint: Vomiting, Stomach cramps, SOB Narrative: Scooter Byers is a 71 y.o. male with a history of ?type 2 diabetes, hyperlipidemia, prior kidney stones presents with 12 hours of increasing fevers, fatigue, overall altered mental status, and increasing abdominal pain.??He is unable to provide a history because he is sedated and intubated. Apparently the ED provider per her note stated that he denied any cough, chest pain, palpitations or lower extremity edema. He does have urinary retention and has had to use incontinence products. He denied diarrhea constipation but has been passing gas. Apparently the informed the ED provider that he was quite fatigued. When he presented to the emergency department he was acutely ill, febrile and pale and apparently informed the provider that he had significant abdominal pain. He was found to be tachycardic, tachypneic at and afebrile when he initially presented and he was normotensive, with 99% oxygen saturations initially. He has a history of kidney stones and the abdominal CT scan indicated a double- pigtail right urethral stent without hydronephrosis or hydroureter. He also had an acute kidney injury with a creatinine of 1.6 against a baseline of 1.3. His lactate was elevated at 3.0 and is now increased to 5.3. He also had an elevated procalcitonin of 4.7. His troponin was initially 0.9 and has now come down to 0.6, is thought to be due to demand ischemia likely from renal obstruction. While in the emergency department he had fever and rigors and was administered Tylenol. And then a few minutes later he had an episode of emesis but then became hypoxic with oxygen saturations dropping into the high 80s. He was started on 2 L of oxygen, administered Reglan. About a half an hour later he deteriorated with severe respiratory distress with dropping saturations. He was urgently intubated in the emergency department and a central line was placed. At that time he was given 5 mg of IV metoprolol as his heart rate was in the 160s dropping it down into the 130s. They stated that his blood pressure systolic of over 200 and now dropped to 125/30 with sedation. His rate at that time was 130. Chest x-ray to confirm ET tube placement indicated flash pulmo nary edema. Second troponin is now 0.6. Patient is on the severe sepsis protocol in the ICU and his pressures dropped into the mid 60s with a map of 53. Patient will be started on a neosynephrine a nd vasopressin drip by the blast furnace helper. Per the ED provider after speaking to the urologist this was placed sometime in early 2019, and it was to be removed due to the early part of the pandemic his follow-up appointments were canceled and he was lost to follow-up. Patient History Medical History History of kidney stones Hyperlipidemia Hypertension Kidney stones Type 2 diabetes mellitus Family & Social History Family history unavailable: Yes Social History: household members spouse Safety & Behavioral: Feels Safe in Current Yes Environment Been Physically Hurt or No Threatened By a Person Tobacco & Substance use: Smoking Status Never smoker alcohol intake current alcohol intake frequency holiday/special occasion Substance Use Type does not use Meds Home Medications and Allergies Home Medications Medication Instructions Recorded Confirmed Type amlodipine 10 mg tablet 10 mg PO DAILY 06/05/18 11/19/19 History chlorthalidone 50 mg tablet 50 mg PO DAILY 06/05/18 11/19/19 History insulin glargine 100 unit/mL (3 26 units SUBCUT DAILY 06/05/18 11/19/19 History mL) subcutaneous pen losartan 100 mg tablet 100 mg PO DAILY 06/05/18 11/19/19 History metformin 500 mg tablet 500 mg PO BID 06/05/18 11/19/19 History exenatide microspheres 2 mg/0.85 2 mg SUBCUT QWEEK 11/11/19 11/19/19 History mL subcutaneous auto-injector (Bydureon BCise) fenofibrate nanocrystallized 145 145 mg PO DAILY 11/11/19 11/19/19 History mg tablet rosuvastatin 40 mg tablet 40 mg PO DAILY 11/11/19 11/19/19 History oxycodone 5 mg capsule 5 mg PO Q4H PRN pain #14 caps 11/19/19 Rx tamsulosin 0.4 mg capsule 0.4 mg PO DAILY #60 caps 11/19/19 11/19/19 Rx Allergies Allergy/AdvReac Type Severity Reaction Status Date / Time levofloxacin [From Levaquin] Allergy Rash Verified 06/09/22 19:12 Penicillins Allergy Rash Verified 06/09/22 19:12 Review of Systems Review of Systems ROS: Yes unobtainable due to endotracheal tube Exam Vital Signs (past 8 hours): - 06/09/22 19:06 06/09/22 19:19 06/09/22 19:20 Temperature 98.3 F Pulse Rate 117 H 124 H Respiratory Rate 35 H Blood Pressure 134/75 139/80 Pulse Oximetry 98 95 Oxygen Delivery Method Room Air Room Air 06/09/22 19:20 06/09/22 19:30 06/09/22 19:30 Temperature Pulse Rate 122 H 116 H Respiratory Rate 43 H Blood Pressure 136/78 Pulse Oximetry 97 96 Oxygen Delivery Method 06/09/22 20:00 06/09/22 20:30 06/09/22 20:30 Temperature Pulse Rate 119 H 120 H Respiratory Rate 39 H 41 H Blood Pressure 132/79 Pulse Oximetry 98 97 Oxygen Delivery Method 06/09/22 20:45 06/09/22 20:45 06/09/22 21:07 Temperature Pulse Rate 118 H 67 Respiratory Rate 30 H Blood Pressure 127/80 Pulse Oximetry 98 95 Oxygen Delivery Method 06/09/22 21:11 06/09/22 21:11 06/09/22 22:05 Temperature 98.3 F Pulse Rate 122 H Respiratory Rate 31 H Blood Pressure 137/76 Pulse Oximetry 99 Oxygen Delivery Method 06/09/22 21:15 06/09/22 21:15 06/09/22 21:30 Temperature Pulse Rate 119 H Respiratory Rate 25 H Blood Pressure 138/78 146/84 H Pulse Oximetry 100 Oxygen Delivery Method 06/09/22 21:30 06/09/22 21:46 06/09/22 21:46 Temperature Pulse Rate 124 H 139 H Respiratory Rate 25 H 42 H Blood Pressure 150/100 H Pulse Oximetry 97 95 Oxygen Delivery Method 06/09/22 22:00 06/09/22 22:00 06/09/22 22:15 Temperature Pulse Rate 143 H Respiratory Rate 37 H Blood Pressure 153/77 H 128/76 Pulse Oximetry 94 Oxygen Delivery Method 06/09/22 22:15 06/09/22 22:15 06/09/22 22:21 Temperature Pulse Rate 144 H Respiratory Rate 40 H Blood Pressure 128/76 160/104 H Pulse Oximetry 81 L Oxygen Delivery Method 06/09/22 22:21 06/09/22 22:30 06/09/22 22:30 Temperature 103.8 F H Pulse Rate 150 H 170 H Respiratory Rate 48 H 51 H Blood Pressure 174/114 H Pulse Oximetry 92 77 L Oxygen Delivery Method 06/09/22 22:40 06/09/22 22:40 06/09/22 22:45 Temperature 103.8 F H Pulse Rate 162 H Respiratory Rate 22 Blood Pressure 206/130 H 170/100 H Pulse Oximetry 96 Oxygen Delivery Method 06/09/22 22:45 06/09/22 22:49 06/09/22 22:50 Temperature 103.8 F H Pulse Rate 156 H Respiratory Rate 0 L Blood Pressure 159/99 H 139/80 Pulse Oximetry 84 L Oxygen Delivery Method 06/09/22 22:52 06/09/22 22:55 06/09/22 23:00 Temperature Pulse Rate Respiratory Rate Blood Pressure 115/69 120/75 128/77 Pulse Oximetry Oxygen Delivery Method 06/09/22 23:00 06/09/22 23:06 06/09/22 23:10 Temperature 103.8 F H Pulse Rate 128 H Respiratory Rate 35 H Blood Pressure 153/93 H 113/68 Pulse Oximetry 96 Oxygen Delivery Method 06/09/22 23:10 06/09/22 23:15 Temperature 103.5 F H Pulse Rate 128 H Respiratory Rate 30 H Blood Pressure 147/79 H Pulse Oximetry 98 Oxygen Delivery Method Oxygen Delivery Method Room Air Narrative Exam Narrative: Gen: Sedated, critically ill-appearing 71 y.o. male, on a ventilator HEENT: normocephalic, atraumatic, conjunctiva clear, sclera non-icteric, oral mucosa pink and moist Neck: supple, full ROM, no JVD, central line in place on the right side Resp: Ventilated. Tachypneic, Lungs CTA, non-labored breathing CV: RRR, no murmur or rubs Abd: soft, non-tender, normoactive BTs : Keith draining bloody urine Skin: no lesions or rashes, dry and intact Neuro: Sedated. Speech clear and coherent. Extremities: Cool and dry patient is immobile. Psyche: normal mood and affect. Objective Labs Result Diagrams: 06/09/22 20:00 06/09/22 20:00 Labs: Laboratory Results - last 24 hr 06/09/22 06/09/22 06/09/22 20:00 20:00 20:00 WBC 29.1 H RBC 4.66 Hgb 13.3 L Hct 38.2 L MCV 81.8 MCH 28.5 MCHC 34.8 RDW 14.0 Plt Count 156 Neut % (Auto) Not Reportable Lymph % (Auto) Not Reportable Stanly % (Auto) Not Reportable Eos % (Auto) Not Reportable Baso % (Auto) Not Reportable Lymph # (Auto) Not Reportable Stanly # (Auto) Not Reportable Baso # (Auto) Not Reportable Total Counted 100 Seg Neutrophils % 82.0 H Band Neutrophils % 12.0 H Lymphocytes % (Manual) 5.0 L Monocytes % (Manual) 1.0 L Neutrophils # (Manual) 96563 H RBC Morphology See below Anisocytosis 1+ H PT INR APTT D-Dimer Sodium 135 L Potassium 3.6 Chloride 96 L Carbon Dioxide 23 BUN 22 H Creatinine 1.60 H Estimated GFR 45 L BUN/Creatinine Ratio 13.8 Glucose 262 H Lactate 3.0 H Calcium 8.1 L Total Bilirubin 2.2 H AST 31 ALT 16 Alkaline Phosphatase 66 Total Creatine Kinase CK-MB (CK-2) CK-MB (CK-2) Rel Index Troponin I Total Protein 7.6 Albumin 4.2 Globulin 3.4 Albumin/Globulin Ratio 1.2 Procalcitonin Urine Color Urine Appearance Urine pH Ur Specific Mutual Urine Protein Urine Glucose (UA) Urine Ketones Urine Occult Blood Urine Nitrate Urine Bilirubin Urine Urobilinogen Ur Leukocyte Esterase Urine RBC Urine WBC Ur Squamous Epith Cells Urine Bacteria Ur Culture Indicated? SARS-CoV-2 (PCR) 06/09/22 06/09/22 06/09/22 20:00 20:00 20:00 WBC RBC Hgb Hct MCV MCH MCHC RDW Plt Count Neut % (Auto) Lymph % (Auto) Stanly % (Auto) Eos % (Auto) Baso % (Auto) Lymph # (Auto) Stanly # (Auto) Baso # (Auto) Total Counted Seg Neutrophils % Band Neutrophils % Lymphocytes % (Manual) Monocytes % (Manual) Neutrophils # (Manual) RBC Morphology Anisocytosis PT 18.9 H INR 1.6 H APTT 31 D-Dimer 821 H Sodium Potassium Chloride Carbon Dioxide BUN Creatinine Estimated GFR BUN/Creatinine Ratio Glucose Lactate Calcium Total Bilirubin AST ALT Alkaline Phosphatase Total Creatine Kinase 59 CK-MB (CK-2) TNP CK-MB (CK-2) Rel Index TNP Troponin I 0.924 H* Total Protein Albumin Globulin Albumin/Globulin Ratio Procalcitonin 4.70 H Urine Color Urine Appearance Urine pH Ur Specific Mutual Urine Protein Urine Glucose (UA) Urine Ketones Urine Occult Blood Urine Nitrate Urine Bilirubin Urine Urobilinogen Ur Leukocyte Esterase Urine RBC Urine WBC Ur Squamous Epith Cells Urine Bacteria Ur Culture Indicated? SARS-CoV-2 (PCR) 06/09/22 06/09/22 06/09/22 20:14 22:13 22:13 WBC RBC Hgb Hct MCV MCH MCHC RDW Plt Count Neut % (Auto) Lymph % (Auto) Stanly % (Auto) Eos % (Auto) Baso % (Auto) Lymph # (Auto) Stanly # (Auto) Baso # (Auto) Total Counted Seg Neutrophils % Band Neutrophils % Lymphocytes % (Manual) Monocytes % (Manual) Neutrophils # (Manual) RBC Morphology Anisocytosis PT INR APTT D-Dimer Sodium Potassium Chloride Carbon Dioxide BUN Creatinine Estimated GFR BUN/Creatinine Ratio Glucose Lactate Calcium Total Bilirubin AST ALT Alkaline Phosphatase Total Creatine Kinase CK-MB (CK-2) CK-MB (CK-2) Rel Index Troponin I 0.608 H* Total Protein Albumin Globulin Albumin/Globulin Ratio Procalcitonin Urine Color Yellow Urine Appearance Sl cloudy Urine pH 5.0 Ur Specific Mutual 1.010 Urine Protein 1+ H Urine Glucose (UA) Negative Urine Ketones Negative Urine Occult Blood 1+ H Urine Nitrate Negative Urine Bilirubin Negative Urine Urobilinogen 0.2 Ur Leukocyte Esterase 2+ H Urine RBC 0-1/hpf Urine WBC 30-100/hpf H Ur Squamous Epith Cells None seen Urine Bacteria Many (>30) H Ur Culture Indicated? Specimen cultured SARS-CoV-2 (PCR) Negative Assessment & Plan Assessment & Plan narrative: Scooter Fontenot is admitted to the intensive care unit due to severe sepsis ass ociated with pyelonephritis due to likely a retained ureteral pigtail and resultant infection. Patient is critically ill, ventilated and sedated. Septic shock associated with pyelonephritis due to likely a retained and infected ureteral pigtail, acute, present on admission * Patient was initially started on IV ceftriaxone and Flagyl * This is been changed to empiric IV cefepime and IV vanco, Flagyl will be maintained due to concerns for aspiration, narrow coverage after cultures return. * Case has been discussed with Dr. Simms. I was informed that they are likely to need to dissolve the stent via lithotripsy however if his cultures come back with Enterococcus that will be very complicated and the patient may need to be transferred for further surgical intervention. * Continue to follow lactates, cbc and bmp until it normalizes Hypotension associated with sepsis, acute, present on admission * Patient will be receiving phenylephrine and vasopressin per blast furnace helper goal MAP of 65. Flash pulmonary edema seen on x-ray * Likely due to volume overload with saline boluses and continued fluids which have now been stopped * Will likely need an echocardiogram tomorrow sometime to assess for congestive heart failure and/or vegetations though that may require at [facility]. Elevated troponin, acute, present on admission * Patient does not have a documented history in our system for coronary artery disease but he does have risk factors for such * Continue to trend troponins q.6 hours, it has started to trend down which is likely secondary to demand ischemia associated with both sepsis and the acute kidney injury Elevated D-dimer with sudden onset hypoxia, acute, present on admission * D-dimer was approximately 821 however CTA of the chest was negative for a pulmonary embolism. VTE Prophylaxis: Wells risk score 0 heparin 5000 units b.i.d., bilateral SCDs Patient is admitted to the inpatient intensive care service due to the severity of disease, risks of further disease progression and this stay is expected to exceed 2 midnights. FEN: IV fluids: Saline lock, has multiple drips, diet: NPO, labs: CBC, C/BMP, liver enzymes, Mag, PT/INR, trend troponin and lactate Consultants Dr. Simms, urology and [facility], care and involvement in the patient?s care is appreciated. Dispo: Unknown at this time Code status: Full code presumed with patient's acting as his surrogate and POA. [X] I have utilized all available immediate resources to obtain, update, or review of the patient's current medications VTE Deep Vein Thrombosis/Pulmonary Embolism Present on Admission: No MIPS - Admit I confirm the patient?s Advance Care Plan is present, Code status is documented, Surrogate decision maker is in patient?s record: Yes MIPS - DC The patient has current or prior documentation of left ventricular ejection fraction (LVEF) less than 40%, or moderate or severely depressed left ventricular systolic function.: No Time Spent With Patient Critical Care time: I spent a total of 85 minutes of critical care time on this patient's care today; this time is exclusive of procedural time.
[2022-06-10 00:13] LABS: Lactate 2HR (Lactic Acid Rflx) 5.3 mmol/L (0.7-2.1)
--- NOTE | 2022-06-10 00:36 | P.TELICUCN_ITS ---
History of Present Illness Consult details IF CAMERA ACTIVATED, patient seen via real-time interactive audiovisual communication: Camera activated Date Patient Seen: 06/10/22 Chief complaint: Vomiting, Stomach cramps, SOB Consent obtained for tele-information security officer care: Yes Patient Location: ICU Provider location (State): [place] Other participants/roles: RN, SENIOR VICE PRESIDENT AND CHIEF INFORMATION OFFICER Narrative: 71 y.o. male with a history of ?type 2 diabetes, hyperlipidemia, prior kidney stones - s/p stent placement in 2019 without any f/u in 2 years presents with 12 hours of increasing fevers, fatigue, overall altered mental status, increasing abdominal pain - found to have pyelonephritis in ED. PAtient entered septic shock in ED and had worsening SOB related to IVF resuscitaiton and metabolic encephalopahty - now intubated. Urology called for f/u and possible removal of stent given likelyhood on infected stent. [facility] Medical History (Updated 06/09/22 @ 23:30 by Lety Rahman MD) History of kidney stones Hyperlipidemia Hypertension Kidney stones Type 2 diabetes mellitus Social History household members: spouse Smoking Status: Never smoker alcohol intake: current Current Medications Current Medications Medications: Home Medications amlodipine 10 mg tablet 10 mg PO DAILY 06/05/18 [History Confirmed 11/19/19] chlorthalidone 50 mg tablet 50 mg PO DAILY 06/05/18 [History Confirmed 11/19/19] insulin glargine 100 unit/mL (3 mL) subcutaneous pen 26 units SUBCUT DAILY 06/05/18 [History Confirmed 11/19/19] losartan 100 mg tablet 100 mg PO DAILY 06/05/18 [History Confirmed 11/19/19] metformin 500 mg tablet 500 mg PO BID 06/05/18 [History Confirmed 11/19/19] exenatide microspheres 2 mg/0.85 mL subcutaneous auto-injector (Bydureon BCise) 2 mg SUBCUT QWEEK 11/11/19 [History Confirmed 11/19/19] fenofibrate nanocrystallized 145 mg tablet 145 mg PO DAILY 11/11/19 [History Confirmed 11/19/19] rosuvastatin 40 mg tablet 40 mg PO DAILY 11/11/19 [History Confirmed 11/19/19] oxycodone 5 mg capsule 5 mg PO Q4H PRN pain #14 caps 03/20/20 [Rx] tamsulosin 0.4 mg capsule 0.4 mg PO DAILY #60 caps 11/19/19 [Rx Confirmed ] Visit Medications (administered) Generic Name Dose Route Start Last Admin Trade Name Renatoq PRN Reason Stop Dose Admin Propofol 1,000 mg in 100 mls @ 2.762 mls/hr 06/09/22 22:45 06/09/22 23:10 Propofol IV 25 mcg/kg/min TITRATE ADRIENNE 13.812 mls/hr Titration Protocol 5 MCG/KG/MIN Fentanyl 1,000 mcg/ Dextrose 250 mls @ 16.114 mls/hr 06/09/22 23:15 06/10/22 00:00 IV 0.7 mcg/kg/hr TITRATE ADRIENNE 16.114 mls/hr Administration Protocol 0.7 MCG/KG/HR Exam Vital Signs (past 8 hours): - 06/09/22 19:06 06/09/22 19:19 06/09/22 19:20 Temperature 98.3 F Pulse Rate 117 H 124 H Respiratory Rate 35 H Blood Pressure 134/75 139/80 Pulse Oximetry 98 95 Oxygen Delivery Method Room Air Room Air 06/09/22 19:20 06/09/22 19:30 06/09/22 19:30 Temperature Pulse Rate 122 H 116 H Respiratory Rate 43 H Blood Pressure 136/78 Pulse Oximetry 97 96 Oxygen Delivery Method 06/09/22 20:00 06/09/22 20:30 06/09/22 20:30 Temperature Pulse Rate 119 H 120 H Respiratory Rate 39 H 41 H Blood Pressure 132/79 Pulse Oximetry 98 97 Oxygen Delivery Method 06/09/22 20:45 06/09/22 20:45 06/09/22 21:07 Temperature Pulse Rate 118 H 67 Respiratory Rate 30 H Blood Pressure 127/80 Pulse Oximetry 98 95 Oxygen Delivery Method 06/09/22 21:11 06/09/22 21:11 06/09/22 22:05 Temperature 98.3 F Pulse Rate 122 H Respiratory Rate 31 H Blood Pressure 137/76 Pulse Oximetry 99 Oxygen Delivery Method 06/09/22 21:15 06/09/22 21:15 06/09/22 21:30 Temperature Pulse Rate 119 H Respiratory Rate 25 H Blood Pressure 138/78 146/84 H Pulse Oximetry 100 Oxygen Delivery Method 06/09/22 21:30 06/09/22 21:46 06/09/22 21:46 Temperature Pulse Rate 124 H 139 H Respiratory Rate 25 H 42 H Blood Pressure 150/100 H Pulse Oximetry 97 95 Oxygen Delivery Method 06/09/22 22:00 06/09/22 22:00 06/09/22 22:15 Temperature Pulse Rate 143 H Respiratory Rate 37 H Blood Pressure 153/77 H 128/76 Pulse Oximetry 94 Oxygen Delivery Method 06/09/22 22:15 06/09/22 22:15 06/09/22 22:21 Temperature Pulse Rate 144 H Respiratory Rate 40 H Blood Pressure 128/76 160/104 H Pulse Oximetry 81 L Oxygen Delivery Method 06/09/22 22:21 06/09/22 22:30 06/09/22 22:30 Temperature 103.8 F H Pulse Rate 150 H 170 H Respiratory Rate 48 H 51 H Blood Pressure 174/114 H Pulse Oximetry 92 77 L Oxygen Delivery Method 06/09/22 22:40 06/09/22 22:40 06/09/22 22:45 Temperature 103.8 F H Pulse Rate 162 H Respiratory Rate 22 Blood Pressure 206/130 H 170/100 H Pulse Oximetry 96 Oxygen Delivery Method 06/09/22 22:45 06/09/22 22:49 06/09/22 22:50 Temperature 103.8 F H Pulse Rate 156 H Respiratory Rate 0 L Blood Pressure 159/99 H 139/80 Pulse Oximetry 84 L Oxygen Delivery Method 06/09/22 22:52 06/09/22 22:55 06/09/22 23:00 Temperature Pulse Rate Respiratory Rate Blood Pressure 115/69 120/75 128/77 Pulse Oximetry Oxygen Delivery Method 06/09/22 23:00 06/09/22 23:06 06/09/22 23:10 Temperature 103.8 F H Pulse Rate 128 H Respiratory Rate 35 H Blood Pressure 153/93 H 113/68 Pulse Oximetry 96 Oxygen Delivery Method 06/09/22 23:10 06/09/22 23:15 Temperature 103.5 F H Pulse Rate 128 H Respiratory Rate 30 H Blood Pressure 147/79 H Pulse Oximetry 98 Oxygen Delivery Method Oxygen Delivery Method Room Air Narrative Exam Narrative: surrogate for exam is primary team Objective Labs Result Diagrams: 06/09/22 20:00 06/09/22 20:00 Labs: Laboratory Results - last 24 hr 10/09/22 10/09/22 10/09/22 20:00 20:00 20:00 WBC 29.1 H RBC 4.66 Hgb 13.3 L Hct 38.2 L MCV 81.8 MCH 28.5 MCHC 34.8 RDW 14.0 Plt Count 156 Neut % (Auto) Not Reportable Lymph % (Auto) Not Reportable [place] % (Auto) Not Reportable Eos % (Auto) Not Reportable Baso % (Auto) Not Reportable Lymph # (Auto) Not Reportable [place] # (Auto) Not Reportable Baso # (Auto) Not Reportable Total Counted 100 Seg Neutrophils % 82.0 H Band Neutrophils % 12.0 H Lymphocytes % (Manual) 5.0 L Monocytes % (Manual) 1.0 L Neutrophils # (Manual) 13026 H RBC Morphology See below Anisocytosis 1+ H PT INR APTT D-Dimer Sodium 135 L Potassium 3.6 Chloride 96 L Carbon Dioxide 23 BUN 22 H Creatinine 1.60 H Estimated GFR 45 L BUN/Creatinine Ratio 13.8 Glucose 262 H Lactate 3.0 H Calcium 8.1 L Total Bilirubin 2.2 H AST 31 ALT 16 Alkaline Phosphatase 66 Total Creatine Kinase CK-MB (CK-2) CK-MB (CK-2) Rel Index Troponin I Total Protein 7.6 Albumin 4.2 Globulin 3.4 Albumin/Globulin Ratio 1.2 Procalcitonin Urine Color Urine Appearance Urine pH Ur Specific [place] Urine Protein Urine Glucose (UA) Urine Ketones Urine Occult Blood Urine Nitrate Urine Bilirubin Urine Urobilinogen Ur Leukocyte Esterase Urine RBC Urine WBC Ur Squamous Epith Cells Urine Bacteria Ur Culture Indicated? SARS-CoV-2 (PCR) 06/09/22 06/09/22 06/09/22 20:00 20:00 20:00 WBC RBC Hgb Hct MCV MCH MCHC RDW Plt Count Neut % (Auto) Lymph % (Auto) [place] % (Auto) Eos % (Auto) Baso % (Auto) Lymph # (Auto) [place] # (Auto) Baso # (Auto) Total Counted Seg Neutrophils % Band Neutrophils % Lymphocytes % (Manual) Monocytes % (Manual) Neutrophils # (Manual) RBC Morphology Anisocytosis PT 18.9 H INR 1.6 H APTT 31 D-Dimer 821 H Sodium Potassium Chloride Carbon Dioxide BUN Creatinine Estimated GFR BUN/Creatinine Ratio Glucose Lactate Calcium Total Bilirubin AST ALT Alkaline Phosphatase Total Creatine Kinase 59 CK-MB (CK-2) TNP CK-MB (CK-2) Rel Index TNP Troponin I 0.924 H* Total Protein Albumin Globulin Albumin/Globulin Ratio Procalcitonin 4.70 H Urine Color Urine Appearance Urine pH Ur Specific [place] Urine Protein Urine Glucose (UA) Urine Ketones Urine Occult Blood Urine Nitrate Urine Bilirubin Urine Urobilinogen Ur Leukocyte Esterase Urine RBC Urine WBC Ur Squamous Epith Cells Urine Bacteria Ur Culture Indicated? SARS-CoV-2 (PCR) 06/09/22 06/09/22 06/09/22 20:14 22:13 22:13 WBC RBC Hgb Hct MCV MCH MCHC RDW Plt Count Neut % (Auto) Lymph % (Auto) [place] % (Auto) Eos % (Auto) Baso % (Auto) Lymph # (Auto) [place] # (Auto) Baso # (Auto) Total Counted Seg Neutrophils % Band Neutrophils % Lymphocytes % (Manual) Monocytes % (Manual) Neutrophils # (Manual) RBC Morphology Anisocytosis PT INR APTT D-Dimer Sodium Potassium Chloride Carbon Dioxide BUN Creatinine Estimated GFR BUN/Creatinine Ratio Glucose Lactate Calcium Total Bilirubin AST ALT Alkaline Phosphatase Total Creatine Kinase CK-MB (CK-2) CK-MB (CK-2) Rel Index Troponin I 0.608 H* Total Protein Albumin Globulin Albumin/Globulin Ratio Procalcitonin Urine Color Yellow Urine Appearance Sl cloudy Urine pH 5.0 Ur Specific [place] 1.010 Urine Protein 1+ H Urine Glucose (UA) Negative Urine Ketones Negative Urine Occult Blood 1+ H Urine Nitrate Negative Urine Bilirubin Negative Urine Urobilinogen 0.2 Ur Leukocyte Esterase 2+ H Urine RBC 0-1/hpf Urine WBC 30-100/hpf H Ur Squamous Epith Cells None seen Urine Bacteria Many (>30) H Ur Culture Indicated? Specimen cultured SARS-CoV-2 (PCR) Negative 06/09/22 23:49 WBC RBC Hgb Hct MCV MCH MCHC RDW Plt Count Neut % (Auto) Lymph % (Auto) [place] % (Auto) Eos % (Auto) Baso % (Auto) Lymph # (Auto) [place] # (Auto) Baso # (Auto) Total Counted Seg Neutrophils % Band Neutrophils % Lymphocytes % (Manual) Monocytes % (Manual) Neutrophils # (Manual) RBC Morphology Anisocytosis PT INR APTT D-Dimer Sodium Potassium Chloride Carbon Dioxide BUN Creatinine Estimated GFR BUN/Creatinine Ratio Glucose Lactate 5.3 H* Calcium Total Bilirubin AST ALT Alkaline Phosphatase Total Creatine Kinase CK-MB (CK-2) CK-MB (CK-2) Rel Index Troponin I Total Protein Albumin Globulin Albumin/Globulin Ratio Procalcitonin Urine Color Urine Appearance Urine pH Ur Specific [place] Urine Protein Urine Glucose (UA) Urine Ketones Urine Occult Blood Urine Nitrate Urine Bilirubin Urine Urobilinogen Ur Leukocyte Esterase Urine RBC Urine WBC Ur Squamous Epith Cells Urine Bacteria Ur Culture Indicated? SARS-CoV-2 (PCR) Assessment & Plan Assessment & Plan narrative: Septic shock Lactic acidosis acute metabolic encephalopathy pyelonephritis , possible infected stent acute respiratory failure popssible probable gram neg pna from aspiration acute renal failure bandemia vent/sedation bundle trend ABG LTVV wean down fio2 TTE map goal >65 phenylephrin adn vasopressin 0 was very tachycardic in ED, likely related to udnersedation , but will focus on less arrthymogenic agents for now trend bmp trend LA NPO for now monitor UO f/u urology f/u staton cx empric abx - cefepime/vancomcin, given findings of aspiration flagyl can b continued dvt ppx trend cbc total Critical care time = 74 min Time Spent With Patient Critical Care time: I spent a total of [] minutes of critical care time on this patient's care today; this time is exclusive of procedural time.
[2022-06-10 00:37] LABS: HCO3 ABG 19 mmol/L (22-26); PCO2 ABG 44.6 mmHg (35-45); PO2 ABG 154 mmHg (80-100)
[2022-06-10 00:38] LABS: Fractionated Inspired Oxygen 100; Oxygen Saturation ABG 99 % (95-100); TCO2 ABG 20 mmol/L (21-31); pH ABG 7.23 (7.35-7.45)
[2022-06-10] MEDS: PHENYLEPHRINE 20,000 MCG in DEXTROSE 5% IN WATER 250 ML 75 MCG IV (00:49)
[2022-06-10 01:04] LABS: Hemoglobin A1C% w Est Avg Glu 7.8 % (4.0-6.0)
[2022-06-10] MEDS: VANCOMYCIN 2,000 MG/400 ML PIGGYBACK 200 MG IV (01:09)
[2022-06-10] MEDS: CEFEPIME 2 GM in SODIUM CHLORIDE 0.9% 100 ML IV (01:22)
[2022-06-10] MEDS: HEPARIN 5,000 UNIT/ML VIAL 5000 UNIT SUBCUT (01:33)
[2022-06-10] MEDS: VASOPRESSIN 40 UNIT in SODIUM CHLORIDE 0.9% 100 ML 4.5 UNIT IV ×2 (01:49→17:53)
[2022-06-10] MEDS: metroNIDAZOLE 500 MG/100 ML PIGGYBACK 100 MG IV (02:50)
[2022-06-10] MEDS: PHENYLEPHRINE 20,000 MCG in DEXTROSE 5% IN WATER 250 ML 127.5 MCG IV (03:14)
[2022-06-10] MEDS: INSULIN LISPRO 100 UNIT/ML 3ML VIAL SUBCUT (03:17)
[2022-06-10] MEDS: ALBUMIN HUMAN 25 GM/100 ML VIAL IV ×3 (04:02→10:11)
[2022-06-10 04:28] LABS: Hematocrit 37.4 % (41-53); Hemoglobin 12.6 g/dL (13.5-17.5); Mean Corpuscular HGB Conc 33.7 % (30-36); Mean Corpuscular Hemoglobin 28.4 PG (26-34); Mean Corpuscular Volume 84.4 fL (80-100); Platelet Count 209 X10^3/uL (150-400); Red Blood Cell Count 4.44 X10^6/uL (4.5-5.9); Red Cell Distribution Width 14.3 % (11.6-14.8)
[2022-06-10 04:39] LABS: Add Manual Diff / Slide Review YES; White Blood Cell Count 46.5 X10^3/uL (4.5-11.0)
[2022-06-10 04:55] LABS: Prothrombin Time 22.7 SECONDS (10.1-12.7)
[2022-06-10 04:58] LABS: Alkaline Phosphatase 57 U/L (38-126); Aspartate Aminotransferase 53 IU/L (17-59); Bilirubin Total 1.7 mg/dL (0.2-1.3); Blood Urea Nitrogen 25 mg/dL (9-20); Calcium 6.8 mg/dL (8.4-10.2); Carbon Dioxide 15 mmol/L (22-32); Chloride 101 mmol/L (98-107); Estimated Glomerular Filt Rate 30 mL/min (>60); Globulin 2.9 g/dL (1.7-4.1); Glucose 367 mg/dL (80-110); HEMOLYSIS < 15 (0-50); Magnesium 1.7 mg/dL (1.6-2.3); Potassium 4.1 mmol/L (3.4-5.1); Sodium 135 mmol/L (137-145); Total Protein 5.9 g/dL (6.3-8.2)
[2022-06-10 05:03] LABS: Alanine Aminotransferase 24 IU/L (<50)
[2022-06-10] MEDS: PHENYLEPHRINE 20,000 MCG in DEXTROSE 5% IN WATER 250 ML 135 MCG IV (05:07)
[2022-06-10] MEDS: propofoL 1,000 MG/100 ML VIAL 11.049 MG IV ×3 (05:46→14:45)
[2022-06-10 06:28] LABS: Anisocytosis 1+; Neutrophils Absolute Manual 42780 /uL (3000-5900); Total Cells Counted 100
[2022-06-10 06:57] LABS: PCO2 ABG 32.6 mmHg (35-45)
[2022-06-10 06:58] LABS: Fractionated Inspired Oxygen 100; HCO3 ABG 14 mmol/L (22-26); Oxygen Saturation ABG 100 % (95-100); TCO2 ABG 15 mmol/L (21-31); pH ABG 7.24 (7.35-7.45)
[2022-06-10 06:59] LABS: PO2 ABG 302 mmHg (80-100)
[2022-06-10] MEDS: PHENYLEPHRINE 20,000 MCG in DEXTROSE 5% IN WATER 250 ML 120 MCG IV (07:00)
[2022-06-10 07:03] LABS: Procalcitonin 27.1 ng/mL (<0.5)
--- NOTE | 2022-06-10 07:08 | P.TELICUPN_ITS ---
Subjective Subjective IF CAMERA ACTIVATED, patient seen via real-time interactive audiovisual communication: Camera activated Consent obtained for tele-power and recovery superintendent care: Yes Patient Location: ICU Provider location (State): [place] Other participants/roles: Hospitalist, RN Interval history: Patient Summary: 71 yo man with PMH Of T2DM, HL, prior kidney stones with ureteral stent placed 2020 without any f/u in 2 years admitted 06/09 with septic shock, pyelonephritis, acute respiratory failure, LUIS, and metabolic acidosis. Pt. emergently intubated in ER and started on Shoaib and Vasopressin drip. Pt. started on Cefepime, Flagyl, and Vanco. Recent Events -patient requiring high dose Shoaib drip and Vasopressin drip for BP support -Trop increased to 3 -Cr rising, patient anuric -INR increasing -ABG shows persistent metabolic acidosis -blood glucose > 300 Current Medications Current Medications Medications: Home Medications amlodipine 10 mg tablet 10 mg PO DAILY 06/05/18 [History Confirmed 11/19/19] chlorthalidone 50 mg tablet 50 mg PO DAILY 06/05/18 [History Confirmed 11/19/19] insulin glargine 100 unit/mL (3 mL) subcutaneous pen 26 units SUBCUT DAILY 06/05/18 [History Confirmed 11/19/19] losartan 100 mg tablet 100 mg PO DAILY 06/05/18 [History Confirmed 11/19/19] metformin 500 mg tablet 500 mg PO BID 06/05/18 [History Confirmed 11/19/19] exenatide microspheres 2 mg/0.85 mL subcutaneous auto-injector ([employer] BCise) 2 mg SUBCUT QWEEK 11/11/19 [History Confirmed 11/19/19] fenofibrate nanocrystallized 145 mg tablet 145 mg PO DAILY 11/11/19 [History Confirmed 11/19/19] rosuvastatin 40 mg tablet 40 mg PO DAILY 11/11/19 [History Confirmed 11/19/19] oxycodone 5 mg capsule 5 mg PO Q4H PRN pain #14 caps 11/19/19 [Rx] tamsulosin 0.4 mg capsule 0.4 mg PO DAILY #60 caps 11/19/19 [Rx Confirmed 11/19/19] Visit Medications (administered) Generic Name Dose Route Start Last Admin Trade Name Freq PRN Reason Stop Dose Admin Heparin Sodium (Porcine) 5,000 unit 06/10/22 01:00 06/10/22 01:33 Heparin 5,000 Unit/Ml Vial SUBCUT 5,000 unit BID ADRIENNE Administration Propofol 1,000 mg in 100 mls @ 2.762 mls/hr 06/09/22 22:45 06/10/22 06:00 Propofol IV 18 mcg/kg/min TITRATE ADRIENNE 9.945 mls/hr Titration Protocol 5 MCG/KG/MIN Fentanyl 1,000 mcg/ Dextrose 250 mls @ 16.114 mls/hr 06/09/22 23:15 06/10/22 06:00 IV 0.5 mcg/kg/hr TITRATE ADRIENNE 11.51 mls/hr Titration Protocol 0.7 MCG/KG/HR Phenylephrine HCl 20,000 mcg/ 250 mls @ 75 mls/hr 06/10/22 00:35 06/10/22 07:00 Dextrose IV 160 mcg/min TITRATE ADRIENNE 120 mls/hr Administration Protocol 100 MCG/MIN Vasopressin 40 unit/ Sodium 102 mls @ 4.5 mls/hr 06/10/22 00:35 06/10/22 01:49 Chloride IV 4.5 mls/hr CONT ADRIENNE Administration Albumin Human 25 gm in 100 mls @ 60 mls/hr 06/10/22 04:00 06/10/22 05:44 Albuminar IV 60 mls/hr Q2H ADRIENNE Administration Objective Ventilator Parameters: Ventilator Settings FiO2 100 RT Vent Frequency 16 Ventilator Tidal Volume 450 Exhaled Vt/kg IBW 10 Positive End Expiratory 8 Pressure I:E Ratio 1:2.8 Patient Position HOB >= 30 degrees Labs Result Diagrams: 06/10/22 03:58 06/10/22 03:58 Labs: Laboratory Results - last 24 hr 06/09/22 06/09/22 06/09/22 20:00 20:00 20:00 WBC 29.1 H RBC 4.66 Hgb 13.3 L Hct 38.2 L MCV 81.8 MCH 28.5 MCHC 34.8 RDW 14.0 Plt Count 156 Neut % (Auto) Not Reportable Lymph % (Auto) Not Reportable [place] % (Auto) Not Reportable Eos % (Auto) Not Reportable Baso % (Auto) Not Reportable Lymph # (Auto) Not Reportable [place] # (Auto) Not Reportable Baso # (Auto) Not Reportable Total Counted 100 Seg Neutrophils % 82.0 H Band Neutrophils % 12.0 H Lymphocytes % (Manual) 5.0 L Monocytes % (Manual) 1.0 L Neutrophils # (Manual) 29350 H RBC Morphology See below Anisocytosis 1+ H PT INR APTT D-Dimer ABG pH ABG pCO2 ABG pO2 ABG HCO3 ABG Total CO2 ABG O2 Saturation ABG Base Excess FiO2 Sodium 135 L Potassium 3.6 Chloride 96 L Carbon Dioxide 23 BUN 22 H Creatinine 1.60 H Estimated GFR 45 L BUN/Creatinine Ratio 13.8 Glucose 262 H Hemoglobin A1c Lactate 3.0 H Calcium 8.1 L Magnesium Total Bilirubin 2.2 H AST 31 ALT 16 Alkaline Phosphatase 66 Total Creatine Kinase CK-MB (CK-2) CK-MB (CK-2) Rel Index Troponin I Total Protein 7.6 Albumin 4.2 Globulin 3.4 Albumin/Globulin Ratio 1.2 Procalcitonin Urine Color Urine Appearance Urine pH Ur Specific [place] Urine Protein Urine Glucose (UA) Urine Ketones Urine Occult Blood Urine Nitrate Urine Bilirubin Urine Urobilinogen Ur Leukocyte Esterase Urine RBC Urine WBC Ur Squamous Epith Cells Urine Bacteria Ur Culture Indicated? Nasal Screen MRSA (PCR) SARS-CoV-2 (PCR) 06/09/22 06/09/22 06/09/22 20:00 20:00 20:00 WBC RBC Hgb Hct MCV MCH MCHC RDW Plt Count Neut % (Auto) Lymph % (Auto) [place] % (Auto) Eos % (Auto) Baso % (Auto) Lymph # (Auto) [place] # (Auto) Baso # (Auto) Total Counted Seg Neutrophils % Band Neutrophils % Lymphocytes % (Manual) Monocytes % (Manual) Neutrophils # (Manual) RBC Morphology Anisocytosis PT 18.9 H INR 1.6 H APTT 31 D-Dimer 821 H ABG pH ABG pCO2 ABG pO2 ABG HCO3 ABG Total CO2 ABG O2 Saturation ABG Base Excess FiO2 Sodium Potassium Chloride Carbon Dioxide BUN Creatinine Estimated GFR BUN/Creatinine Ratio Glucose Hemoglobin A1c Lactate Calcium Magnesium Total Bilirubin AST ALT Alkaline Phosphatase Total Creatine Kinase 59 CK-MB (CK-2) TNP CK-MB (CK-2) Rel Index TNP Troponin I 0.924 H* Total Protein Albumin Globulin Albumin/Globulin Ratio Procalcitonin 4.70 H Urine Color Urine Appearance Urine pH Ur Specific [place] Urine Protein Urine Glucose (UA) Urine Ketones Urine Occult Blood Urine Nitrate Urine Bilirubin Urine Urobilinogen Ur Leukocyte Esterase Urine RBC Urine WBC Ur Squamous Epith Cells Urine Bacteria Ur Culture Indicated? Nasal Screen MRSA (PCR) SARS-CoV-2 (PCR) 06/09/22 06/09/22 06/09/22 20:00 20:14 22:13 WBC RBC Hgb Hct MCV MCH MCHC RDW Plt Count Neut % (Auto) Lymph % (Auto) [place] % (Auto) Eos % (Auto) Baso % (Auto) Lymph # (Auto) [place] # (Auto) Baso # (Auto) Total Counted Seg Neutrophils % Band Neutrophils % Lymphocytes % (Manual) Monocytes % (Manual) Neutrophils # (Manual) RBC Morphology Anisocytosis PT INR APTT D-Dimer ABG pH ABG pCO2 ABG pO2 ABG HCO3 ABG Total CO2 ABG O2 Saturation ABG Base Excess FiO2 Sodium Potassium Chloride Carbon Dioxide BUN Creatinine Estimated GFR BUN/Creatinine Ratio Glucose Hemoglobin A1c 7.8 H Lactate Calcium Magnesium Total Bilirubin AST ALT Alkaline Phosphatase Total Creatine Kinase CK-MB (CK-2) CK-MB (CK-2) Rel Index Troponin I 0.608 H* Total Protein Albumin Globulin Albumin/Globulin Ratio Procalcitonin Urine Color Yellow Urine Appearance Sl cloudy Urine pH 5.0 Ur Specific [place] 1.010 Urine Protein 1+ H Urine Glucose (UA) Negative Urine Ketones Negative Urine Occult Blood 1+ H Urine Nitrate Negative Urine Bilirubin Negative Urine Urobilinogen 0.2 Ur Leukocyte Esterase 2+ H Urine RBC 0-1/hpf Urine WBC 30-100/hpf H Ur Squamous Epith Cells None seen Urine Bacteria Many (>30) H Ur Culture Indicated? Specimen cultured Nasal Screen MRSA (PCR) SARS-CoV-2 (PCR) 06/09/22 06/09/22 06/09/22 22:13 23:49 23:50 WBC RBC Hgb Hct MCV MCH MCHC RDW Plt Count Neut % (Auto) Lymph % (Auto) [place] % (Auto) Eos % (Auto) Baso % (Auto) Lymph # (Auto) [place] # (Auto) Baso # (Auto) Total Counted Seg Neutrophils % Band Neutrophils % Lymphocytes % (Manual) Monocytes % (Manual) Neutrophils # (Manual) RBC Morphology Anisocytosis PT INR APTT D-Dimer ABG pH ABG pCO2 ABG pO2 ABG HCO3 ABG Total CO2 ABG O2 Saturation ABG Base Excess FiO2 Sodium Potassium Chloride Carbon Dioxide BUN Creatinine Estimated GFR BUN/Creatinine Ratio Glucose Hemoglobin A1c Lactate 5.3 H* Calcium Magnesium Total Bilirubin AST ALT Alkaline Phosphatase Total Creatine Kinase CK-MB (CK-2) CK-MB (CK-2) Rel Index Troponin I Total Protein Albumin Globulin Albumin/Globulin Ratio Procalcitonin Urine Color Urine Appearance Urine pH Ur Specific [place] Urine Protein Urine Glucose (UA) Urine Ketones Urine Occult Blood Urine Nitrate Urine Bilirubin Urine Urobilinogen Ur Leukocyte Esterase Urine RBC Urine WBC Ur Squamous Epith Cells Urine Bacteria Ur Culture Indicated? Nasal Screen MRSA (PCR) Negative for mrsa SARS-CoV-2 (PCR) Negative 06/10/22 06/10/22 06/10/22 00:22 03:58 03:58 WBC 46.5 H* D RBC 4.44 L Hgb 12.6 L Hct 37.4 L MCV 84.4 MCH 28.4 MCHC 33.7 RDW 14.3 Plt Count 209 Neut % (Auto) Not Reportable Lymph % (Auto) Not Reportable [place] % (Auto) Not Reportable Eos % (Auto) Not Reportable Baso % (Auto) Not Reportable Lymph # (Auto) Not Reportable [place] # (Auto) Not Reportable Baso # (Auto) Not Reportable Total Counted 100 Seg Neutrophils % 74.0 H Band Neutrophils % 18.0 H Lymphocytes % (Manual) 2.0 L Monocytes % (Manual) 6.0 Neutrophils # (Manual) 40637 H RBC Morphology See below Anisocytosis 1+ H PT 22.7 H INR 2.0 H APTT D-Dimer ABG pH 7.23 L* ABG pCO2 44.6 ABG pO2 154 H ABG HCO3 19 L ABG Total CO2 20 L ABG O2 Saturation 99 ABG Base Excess -9.0 L FiO2 100 Sodium Potassium Chloride Carbon Dioxide BUN Creatinine Estimated GFR BUN/Creatinine Ratio Glucose Hemoglobin A1c Lactate Calcium Magnesium Total Bilirubin AST ALT Alkaline Phosphatase Total Creatine Kinase CK-MB (CK-2) CK-MB (CK-2) Rel Index Troponin I Total Protein Albumin Globulin Albumin/Globulin Ratio Procalcitonin Urine Color Urine Appearance Urine pH Ur Specific [place] Urine Protein Urine Glucose (UA) Urine Ketones Urine Occult Blood Urine Nitrate Urine Bilirubin Urine Urobilinogen Ur Leukocyte Esterase Urine RBC Urine WBC Ur Squamous Epith Cells Urine Bacteria Ur Culture Indicated? Nasal Screen MRSA (PCR) SARS-CoV-2 (PCR) 06/10/22 06/10/22 06/10/22 03:58 03:58 06:38 WBC RBC Hgb Hct MCV MCH MCHC RDW Plt Count Neut % (Auto) Lymph % (Auto) [place] % (Auto) Eos % (Auto) Baso % (Auto) Lymph # (Auto) [place] # (Auto) Baso # (Auto) Total Counted Seg Neutrophils % Band Neutrophils % Lymphocytes % (Manual) Monocytes % (Manual) Neutrophils # (Manual) RBC Morphology Anisocytosis PT INR APTT D-Dimer ABG pH 7.24 L* ABG pCO2 32.6 L ABG pO2 302 H* ABG HCO3 14 L ABG Total CO2 15 L ABG O2 Saturation 100 ABG Base Excess -14.0 L FiO2 100 Sodium 135 L Potassium 4.1 Chloride 101 Carbon Dioxide 15 L BUN 25 H Creatinine 2.27 H Estimated GFR 30 L BUN/Creatinine Ratio 11.0 Glucose 367 H D Hemoglobin A1c Lactate Calcium 6.8 L Magnesium 1.7 Total Bilirubin 1.7 H AST 53 ALT 24 Alkaline Phosphatase 57 Total Creatine Kinase CK-MB (CK-2) CK-MB (CK-2) Rel Index Troponin I 3.470 H* Total Protein 5.9 L Albumin 3.0 L Globulin 2.9 Albumin/Globulin Ratio 1.0 Procalcitonin Urine Color Urine Appearance Urine pH Ur Specific [place] Urine Protein Urine Glucose (UA) Urine Ketones Urine Occult Blood Urine Nitrate Urine Bilirubin Urine Urobilinogen Ur Leukocyte Esterase Urine RBC Urine WBC Ur Squamous Epith Cells Urine Bacteria Ur Culture Indicated? Nasal Screen MRSA (PCR) SARS-CoV-2 (PCR) Exam Vital Signs (past 8 hours): - 06/09/22 23:10 06/09/22 23:10 06/09/22 23:15 Temperature 103.5 F H Pulse Rate 128 H Respiratory Rate 30 H Blood Pressure 113/68 147/79 H Pulse Oximetry 98 Oxygen Delivery Method 06/09/22 23:40 06/09/22 23:40 06/09/22 23:45 Temperature 102.7 F H Pulse Rate 120 H Respiratory Rate Blood Pressure 109/63 147/90 H Pulse Oximetry 93 Oxygen Delivery Method 06/09/22 23:45 06/09/22 23:50 06/09/22 23:50 Temperature 102.6 F H 102.2 F H Pulse Rate 153 H 140 H Respiratory Rate Blood Pressure 134/81 Pulse Oximetry 91 93 Oxygen Delivery Method 06/09/22 23:55 06/09/22 23:55 06/10/22 00:00 Temperature 102.2 F H Pulse Rate 120 H Respiratory Rate 15 Blood Pressure 90/55 L 75/50 L Pulse Oximetry 94 Oxygen Delivery Method 06/10/22 00:00 06/10/22 00:05 06/10/22 00:05 Temperature 102.0 F H 102.0 F H Pulse Rate 113 H 111 H Respiratory Rate 9 L 10 L Blood Pressure 80/42 L Pulse Oximetry 97 98 Oxygen Delivery Method 06/10/22 00:10 06/10/22 00:10 06/10/22 00:15 Temperature 102.0 F H Pulse Rate 111 H Respiratory Rate 10 L Blood Pressure 67/49 L 66/48 L Pulse Oximetry 98 Oxygen Delivery Method 06/10/22 00:15 06/10/22 00:20 06/10/22 00:20 Temperature 102.0 F H 101.8 F H Pulse Rate 110 H 109 H Respiratory Rate 11 L 10 L Blood Pressure 67/47 L Pulse Oximetry 98 98 Oxygen Delivery Method 06/10/22 00:25 06/10/22 00:25 06/10/22 00:30 Temperature 101.8 F H 101.8 F H Pulse Rate 107 H 106 H Respiratory Rate 11 L 10 L Blood Pressure 65/48 L Pulse Oximetry 99 99 Oxygen Delivery Method 06/10/22 00:30 06/10/22 00:35 06/10/22 00:35 Temperature 101.7 F H Pulse Rate 104 H Respiratory Rate 11 L Blood Pressure 63/45 L 65/43 L Pulse Oximetry 99 Oxygen Delivery Method 06/10/22 00:40 06/10/22 00:40 06/10/22 00:44 Temperature 101.7 F H 101.5 F H Pulse Rate 104 H 104 H Respiratory Rate 11 L 12 Blood Pressure 62/42 L Pulse Oximetry 99 99 Oxygen Delivery Method 06/10/22 00:46 06/10/22 00:46 06/10/22 00:50 Temperature 101.5 F H 101.3 F H Pulse Rate 104 H 103 H Respiratory Rate 11 L 11 L Blood Pressure 60/44 L Pulse Oximetry 99 99 Oxygen Delivery Method 06/10/22 00:50 06/10/22 00:55 06/10/22 00:55 Temperature 101.3 F H Pulse Rate 103 H Respiratory Rate 11 L Blood Pressure 60/45 L 61/46 L Pulse Oximetry 99 Oxygen Delivery Method 06/10/22 01:02 06/10/22 00:00 06/10/22 01:11 Temperature 101.1 F H 101 F H Pulse Rate 103 H Respiratory Rate 13 Blood Pressure 76/53 L Pulse Oximetry 99 Oxygen Delivery Method 06/10/22 01:11 06/10/22 01:15 06/10/22 01:15 Temperature 100.9 F H 100.8 F H Pulse Rate 101 H 103 H Respiratory Rate 13 14 Blood Pressure 83/53 L Pulse Oximetry 99 99 Oxygen Delivery Method 06/10/22 01:20 06/10/22 01:20 06/10/22 01:25 Temperature 100.8 F H 100.6 F H Pulse Rate 102 H 101 H Respiratory Rate 14 13 Blood Pressure 82/50 L Pulse Oximetry 99 100 Oxygen Delivery Method 06/10/22 01:25 06/10/22 01:29 06/10/22 01:30 Temperature 100.6 F H Pulse Rate 102 H Respiratory Rate 14 Blood Pressure 82/51 L 83/52 L Pulse Oximetry 100 Oxygen Delivery Method 06/10/22 01:30 06/10/22 01:35 06/10/22 01:35 Temperature 100.6 F H 100.4 F H Pulse Rate 102 H 104 H Respiratory Rate 14 13 Blood Pressure 89/54 L Pulse Oximetry 100 100 Oxygen Delivery Method 06/10/22 01:41 06/10/22 01:41 06/10/22 01:45 Temperature 100.0 F H Pulse Rate 112 H Respiratory Rate 41 H Blood Pressure 114/76 101/63 Pulse Oximetry 98 Oxygen Delivery Method 06/10/22 01:45 06/10/22 01:50 06/10/22 01:50 Temperature 100.0 F H 100.0 F H Pulse Rate 106 H 101 H Respiratory Rate 16 14 Blood Pressure 83/56 L Pulse Oximetry 100 Oxygen Delivery Method 06/10/22 01:56 06/10/22 01:56 06/10/22 02:00 Temperature 100.0 F H Pulse Rate 100 H Respiratory Rate 13 Blood Pressure 77/51 L 83/50 L Pulse Oximetry 100 Oxygen Delivery Method 06/10/22 02:00 06/10/22 02:05 06/10/22 02:05 Temperature 100.0 F H 100.0 F H Pulse Rate 100 H 98 H Respiratory Rate 14 13 Blood Pressure 75/50 L Pulse Oximetry 100 100 Oxygen Delivery Method 06/10/22 02:10 06/10/22 02:10 06/10/22 02:15 Temperature 100.0 F H Pulse Rate 98 H Respiratory Rate 13 Blood Pressure 78/49 L 83/52 L Pulse Oximetry 100 Oxygen Delivery Method 06/10/22 02:15 06/10/22 02:20 06/10/22 02:20 Temperature 100.0 F H 100.0 F H Pulse Rate 100 H 100 H Respiratory Rate 14 14 Blood Pressure 83/51 L Pulse Oximetry 100 100 Oxygen Delivery Method 06/10/22 02:25 06/10/22 02:25 06/10/22 02:30 Temperature 100.0 F H Pulse Rate 100 H Respiratory Rate 12 Blood Pressure 84/54 L 86/55 L Pulse Oximetry 100 Oxygen Delivery Method 06/10/22 02:30 06/10/22 02:35 06/10/22 02:35 Temperature 100.0 F H 100.0 F H Pulse Rate 100 H 100 H Respiratory Rate 14 14 Blood Pressure 86/56 L Pulse Oximetry 100 100 Oxygen Delivery Method 06/10/22 02:40 06/10/22 02:40 06/10/22 02:45 Temperature 100.0 F H Pulse Rate 100 H Respiratory Rate 18 Blood Pressure 84/54 L 85/60 L Pulse Oximetry 100 Oxygen Delivery Method 06/10/22 02:45 06/10/22 02:51 06/10/22 02:51 Temperature 100.2 F H 100.2 F H Pulse Rate 100 H 100 H Respiratory Rate 13 18 Blood Pressure 91/48 L Pulse Oximetry 100 100 Oxygen Delivery Method 06/10/22 02:55 06/10/22 02:55 06/10/22 03:00 Temperature 100.2 F H Pulse Rate 100 H Respiratory Rate 14 Blood Pressure 81/55 L 78/56 L Pulse Oximetry Oxygen Delivery Method 06/10/22 03:00 06/10/22 00:00 06/10/22 03:05 Temperature 100.2 F H Pulse Rate 98 H Respiratory Rate 17 Blood Pressure 81/58 L Pulse Oximetry 96 Oxygen Delivery Method Mechanical Ventilation 06/10/22 03:05 06/10/22 03:15 06/10/22 03:15 Temperature 100.2 F H 100.2 F H Pulse Rate 99 H 99 H Respiratory Rate 18 14 Blood Pressure 80/59 L Pulse Oximetry 91 86 L Oxygen Delivery Method 06/10/22 03:30 06/10/22 03:30 06/10/22 03:45 Temperature 100.2 F H Pulse Rate 100 H Respiratory Rate 14 Blood Pressure 82/58 L 85/60 L Pulse Oximetry 98 Oxygen Delivery Method 06/10/22 03:45 06/10/22 04:00 06/10/22 04:00 Temperature 100.4 F H 100.4 F H Pulse Rate 101 H 101 H Respiratory Rate 14 14 Blood Pressure 84/58 L Pulse Oximetry 98 99 Oxygen Delivery Method 06/10/22 04:15 06/10/22 04:15 06/10/22 04:30 Temperature 100.4 F H Pulse Rate 101 H Respiratory Rate 14 Blood Pressure 88/63 L 89/62 L Pulse Oximetry 99 Oxygen Delivery Method 06/10/22 04:30 06/10/22 04:45 06/10/22 04:45 Temperature 100.6 F H 100.6 F H Pulse Rate 101 H 100 H Respiratory Rate 14 14 Blood Pressure 85/61 L Pulse Oximetry 99 99 Oxygen Delivery Method 06/10/22 05:01 06/10/22 05:01 06/10/22 05:14 Temperature 100.2 F H 100.4 F H Pulse Rate 100 H 100 H Respiratory Rate 17 15 Blood Pressure 83/51 L Pulse Oximetry 91 100 Oxygen Delivery Method 06/10/22 05:15 06/10/22 05:15 06/10/22 05:30 Temperature 100.4 F H 100.6 F H Pulse Rate 100 H 100 H Respiratory Rate 15 18 Blood Pressure 89/52 L Pulse Oximetry 100 100 Oxygen Delivery Method 06/10/22 05:30 06/10/22 05:45 06/10/22 05:45 Temperature 100.8 F H Pulse Rate 100 H Respiratory Rate 18 Blood Pressure 89/56 L 93/54 L Pulse Oximetry 100 Oxygen Delivery Method 06/10/22 05:58 06/10/22 05:59 06/10/22 06:00 Temperature 100.8 F H 100.8 F H Pulse Rate 100 H 100 H Respiratory Rate 17 15 Blood Pressure 96/52 L Pulse Oximetry 100 100 Oxygen Delivery Method 06/10/22 06:00 06/10/22 06:15 06/10/22 06:15 Temperature 100.8 F H 100.8 F H Pulse Rate 101 H 101 H Respiratory Rate 15 15 Blood Pressure 100/61 Pulse Oximetry 100 100 Oxygen Delivery Method 06/10/22 06:30 06/10/22 06:30 06/10/22 06:33 Temperature 100.8 F H 100.8 F H Pulse Rate 101 H 101 H Respiratory Rate 15 19 Blood Pressure 97/60 Pulse Oximetry 100 100 Oxygen Delivery Method Oxygen Delivery Method Mechanical Ventilation Narrative Exam Narrative: Patient seen over two way audio visual system. He is intubated and appears comfortable. Quality TeleICU VTE Deep Vein Thrombosis/Pulmonary Embolism Present on Admission: No Assessment & Plan Assessment & Plan narrative: Assessment Septic Shock Acute Pyelonephritis Ureteral stent placed 2019- likely infected LUIS Metabolic acidosis Acute Respiraotry failure-ARDS Elevated troponin Elevated INR DM with hyperglycemia Plan BRANCH LEAD: titrate propofol and precedex drip to patient comfort while intubated CV: Titrate Shoaib and vaso drip to keep MAP 65-75 -if BP drops furhter will add Levophed drip -monitor lactate -aspirin and statin -if troponin continues to trend up may have to consider starting heparin drip for NSTEMI Pulm: Monitor abg and adjust vent as needed -wean down FIO2 as tolerated ID: given severe septic shock and likely infected ureteral stent, will switch from Ceftraixone and Flagyl to Meropenem to cover for ESBL, continue Vanco -follow-up on cultures -hopefully Urology will remove ureteral stent today so we have source control Heme: INR trending up GI: monitor LFTs for possible development of shock liver given septic shock and rising INR FEN/Renal/ -urology consulted - will give 1 amp of bicarb now given high pressor requirements and pH is 7.24 - if severe metabolic acidosis persists will consider bicarb drip - if renal function continues to worsen, may have to consider CRRT Endo: -start insulin drip for better BG control -will DC SQ insulin -Q1H accuchecks PPX: hold SQ heparin given INR already 2 or greater at this time, protonix Dispo: transfer request to higher level of care hospital in works as patient will probably need CRRT Time Spent With Patient Critical Care time: I spent a total of [] minutes of critical care time on this patient's care today; this time is exclusive of procedural time.
--- NOTE | 2022-06-10 07:26 | PC.NURSE ---
06/09 2330 - Patient brought in from the ED, intubated and sedated, on bilateral upper restraints, moved to the bed and connected to monitoring equipment, patient was seen by Dr. Haskins and WIRE STITCHER Kam, orders given. Patient has propofol and fentanyl drip, maintaining RASS -2/-1, patient became hypotensive MAP 60, phenylphrine and vasopressin drip started. Attempted to titrate sedation to keep RASS -1 but patient started to wake up and became agitated and restless, does not follow commands. At 0400, vasopressors already on max dose but MAP remain low 60s, called Dr. Haskins and ordered 200mls albumin. At 0610, blood glucose checked 418, provider notified. Will continue to monitor.
[2022-06-10] MEDS: SODIUM BICARB 8.4% SYRINGE 50 MEQ IV (07:46)
[2022-06-10] MEDS: CALCIUM CHLORIDE 1,000 MG in SODIUM CHLORIDE 0.9% 100 ML 110 MG IV (07:54)
[2022-06-10 07:57] LABS: PTT Partial Thromboplastin Tim 31 SECONDS (26-36)
--- NOTE | 2022-06-10 07:57 | P.CONS_ITS ---
History of Present Illness Consult details Date Patient Seen: 06/10/22 Time Patient Seen: 07:15 Chief complaint: Vomiting, Stomach cramps, SOB Reason for consult: Urosepsis Narrative: The patient is a 71-year-old diabetic gentleman with history of recurrent nephrolithiasis presenting to [facility] ED with complaint of vomiting, stomach cramps, shortness of breath, last evening. Clinical and laboratory data indicated likely sepsis. A Keith catheter was placed with 1725 cc initial return. Urinalysis was consistent with bacterial UTI. The patient is status post cystoscopy and placement of right ureteral stent x2 on 11/19/2019 (see operative report of same date). The patient did not return for scheduled follow-up. In speaking with his daughter, Quin, patient and family concern regarding onset of COVID led to them not following up as requested. She also informs me that her father has had a history of stones and was previously seen before COVID at the [facility]. CT of abdomen and pelvis, redemonstrated and intact indwelling right ureteral stent, and a 2nd stent with proximal migration of the distal pigtail. There is no definite evidence of residual stone per my review. Blood and urine cultures are pending. Despite ceftriaxone, vancomycin and now conversion to Meropenim, the patient's laboratories indicate further concerns. He is currently intubated and on support. Lengthy discussion this morning with Dana Humphrey and Luis Means conducted. Meds Home Medications and Allergies Home Medications Medication Instructions Recorded Confirmed Type amlodipine 10 mg tablet 10 mg PO DAILY 06/05/18 11/19/19 History chlorthalidone 50 mg tablet 50 mg PO DAILY 06/05/18 11/19/19 History insulin glargine 100 unit/mL (3 26 units SUBCUT DAILY 06/05/18 11/19/19 History mL) subcutaneous pen losartan 100 mg tablet 100 mg PO DAILY 06/05/18 11/19/19 History metformin 500 mg tablet 500 mg PO BID 06/05/18 11/19/19 History exenatide microspheres 2 mg/0.85 2 mg SUBCUT QWEEK 11/11/19 11/19/19 History mL subcutaneous auto-injector (ByGuanghetangse) fenofibrate nanocrystallized 145 145 mg PO DAILY 11/11/19 11/19/19 History mg tablet rosuvastatin 40 mg tablet 40 mg PO DAILY 11/11/19 11/19/19 History oxycodone 5 mg capsule 5 mg PO Q4H PRN pain #14 caps 11/19/19 Rx tamsulosin 0.4 mg capsule 0.4 mg PO DAILY #60 caps 11/19/19 11/19/19 Rx Allergies Allergy/AdvReac Type Severity Reaction Status Date / Time levofloxacin [From Levaquin] Allergy Rash Verified 06/09/22 19:12 Penicillins Allergy Rash Verified 06/09/22 19:12 Review of Systems Review of Systems ROS: Yes unobtainable due to mental status Exam Vital Signs (past 8 hours): - 06/10/22 00:00 06/10/22 00:00 06/10/22 00:05 Temperature 102.0 F H Pulse Rate 113 H Respiratory Rate 9 L Blood Pressure 75/50 L 80/42 L Pulse Oximetry 97 Oxygen Delivery Method 06/10/22 00:05 06/10/22 00:10 06/10/22 00:10 Temperature 102.0 F H 102.0 F H Pulse Rate 111 H 111 H Respiratory Rate 10 L 10 L Blood Pressure 67/49 L Pulse Oximetry 98 98 Oxygen Delivery Method 06/10/22 00:15 06/10/22 00:15 06/10/22 00:20 Temperature 102.0 F H 101.8 F H Pulse Rate 110 H 109 H Respiratory Rate 11 L 10 L Blood Pressure 66/48 L Pulse Oximetry 98 98 Oxygen Delivery Method 06/10/22 00:20 06/10/22 00:25 06/10/22 00:25 Temperature 101.8 F H Pulse Rate 107 H Respiratory Rate 11 L Blood Pressure 67/47 L 65/48 L Pulse Oximetry 99 Oxygen Delivery Method 06/10/22 00:30 06/10/22 00:30 06/10/22 00:35 Temperature 101.8 F H Pulse Rate 106 H Respiratory Rate 10 L Blood Pressure 63/45 L 65/43 L Pulse Oximetry 99 Oxygen Delivery Method 06/10/22 00:35 06/10/22 00:40 06/10/22 00:40 Temperature 101.7 F H 101.7 F H Pulse Rate 104 H 104 H Respiratory Rate 11 L 11 L Blood Pressure 62/42 L Pulse Oximetry 99 99 Oxygen Delivery Method 06/10/22 00:44 06/10/22 00:46 06/10/22 00:46 Temperature 101.5 F H 101.5 F H Pulse Rate 104 H 104 H Respiratory Rate 12 11 L Blood Pressure 60/44 L Pulse Oximetry 99 99 Oxygen Delivery Method 06/10/22 00:50 06/10/22 00:50 06/10/22 00:55 Temperature 101.3 F H Pulse Rate 103 H Respiratory Rate 11 L Blood Pressure 60/45 L 61/46 L Pulse Oximetry 99 Oxygen Delivery Method 06/10/22 00:55 06/10/22 01:02 06/10/22 00:00 Temperature 101.3 F H 101.1 F H 101 F H Pulse Rate 103 H 103 H Respiratory Rate 11 L 13 Blood Pressure Pulse Oximetry 99 99 Oxygen Delivery Method 06/10/22 01:11 06/10/22 01:11 06/10/22 01:15 Temperature 100.9 F H Pulse Rate 101 H Respiratory Rate 13 Blood Pressure 76/53 L 83/53 L Pulse Oximetry 99 Oxygen Delivery Method 06/10/22 01:15 06/10/22 01:20 06/10/22 01:20 Temperature 100.8 F H 100.8 F H Pulse Rate 103 H 102 H Respiratory Rate 14 14 Blood Pressure 82/50 L Pulse Oximetry 99 99 Oxygen Delivery Method 06/10/22 01:25 06/10/22 01:25 06/10/22 01:29 Temperature 100.6 F H 100.6 F H Pulse Rate 101 H 102 H Respiratory Rate 13 14 Blood Pressure 82/51 L Pulse Oximetry 100 100 Oxygen Delivery Method 06/10/22 01:30 06/10/22 01:30 06/10/22 01:35 Temperature 100.6 F H Pulse Rate 102 H Respiratory Rate 14 Blood Pressure 83/52 L 89/54 L Pulse Oximetry 100 Oxygen Delivery Method 06/10/22 01:35 06/10/22 01:41 06/10/22 01:41 Temperature 100.4 F H 100.0 F H Pulse Rate 104 H 112 H Respiratory Rate 13 41 H Blood Pressure 114/76 Pulse Oximetry 100 98 Oxygen Delivery Method 06/10/22 01:45 06/10/22 01:45 06/10/22 01:50 Temperature 100.0 F H Pulse Rate 106 H Respiratory Rate 16 Blood Pressure 101/63 83/56 L Pulse Oximetry Oxygen Delivery Method 06/10/22 01:50 06/10/22 01:56 06/10/22 01:56 Temperature 100.0 F H 100.0 F H Pulse Rate 101 H 100 H Respiratory Rate 14 13 Blood Pressure 77/51 L Pulse Oximetry 100 100 Oxygen Delivery Method 06/10/22 02:00 06/10/22 02:00 06/10/22 02:05 Temperature 100.0 F H Pulse Rate 100 H Respiratory Rate 14 Blood Pressure 83/50 L 75/50 L Pulse Oximetry 100 Oxygen Delivery Method 06/10/22 02:05 06/10/22 02:10 06/10/22 02:10 Temperature 100.0 F H 100.0 F H Pulse Rate 98 H 98 H Respiratory Rate 13 13 Blood Pressure 78/49 L Pulse Oximetry 100 100 Oxygen Delivery Method 06/10/22 02:15 06/10/22 02:15 06/10/22 02:20 Temperature 100.0 F H Pulse Rate 100 H Respiratory Rate 14 Blood Pressure 83/52 L 83/51 L Pulse Oximetry 100 Oxygen Delivery Method 06/10/22 02:20 06/10/22 02:25 06/10/22 02:25 Temperature 100.0 F H 100.0 F H Pulse Rate 100 H 100 H Respiratory Rate 14 12 Blood Pressure 84/54 L Pulse Oximetry 100 100 Oxygen Delivery Method 06/10/22 02:30 06/10/22 02:30 06/10/22 02:35 Temperature 100.0 F H 100.0 F H Pulse Rate 100 H 100 H Respiratory Rate 14 14 Blood Pressure 86/55 L Pulse Oximetry 100 100 Oxygen Delivery Method 06/10/22 02:35 06/10/22 02:40 06/10/22 02:40 Temperature 100.0 F H Pulse Rate 100 H Respiratory Rate 18 Blood Pressure 86/56 L 84/54 L Pulse Oximetry 100 Oxygen Delivery Method 06/10/22 02:45 06/10/22 02:45 06/10/22 02:51 Temperature 100.2 F H 100.2 F H Pulse Rate 100 H 100 H Respiratory Rate 13 18 Blood Pressure 85/60 L Pulse Oximetry 100 100 Oxygen Delivery Method 06/10/22 02:51 06/10/22 02:55 06/10/22 02:55 Temperature 100.2 F H Pulse Rate 100 H Respiratory Rate 14 Blood Pressure 91/48 L 81/55 L Pulse Oximetry Oxygen Delivery Method 06/10/22 03:00 06/10/22 03:00 06/10/22 00:00 Temperature 100.2 F H Pulse Rate 98 H Respiratory Rate 17 Blood Pressure 78/56 L Pulse Oximetry 96 Oxygen Delivery Method Mechanical Ventilation 06/10/22 03:05 06/10/22 03:05 06/10/22 03:15 Temperature 100.2 F H 100.2 F H Pulse Rate 99 H 99 H Respiratory Rate 18 14 Blood Pressure 81/58 L Pulse Oximetry 91 86 L Oxygen Delivery Method 06/10/22 03:15 06/10/22 03:30 06/10/22 03:30 Temperature 100.2 F H Pulse Rate 100 H Respiratory Rate 14 Blood Pressure 80/59 L 82/58 L Pulse Oximetry 98 Oxygen Delivery Method 06/10/22 03:45 06/10/22 03:45 06/10/22 04:00 Temperature 100.4 F H Pulse Rate 101 H Respiratory Rate 14 Blood Pressure 85/60 L 84/58 L Pulse Oximetry 98 Oxygen Delivery Method 06/10/22 04:00 06/10/22 04:15 06/10/22 04:15 Temperature 100.4 F H 100.4 F H Pulse Rate 101 H 101 H Respiratory Rate 14 14 Blood Pressure 88/63 L Pulse Oximetry 99 99 Oxygen Delivery Method 06/10/22 04:30 06/10/22 04:30 06/10/22 04:45 Temperature 100.6 F H Pulse Rate 101 H Respiratory Rate 14 Blood Pressure 89/62 L 85/61 L Pulse Oximetry 99 Oxygen Delivery Method 06/10/22 04:45 06/10/22 05:01 06/10/22 05:01 Temperature 100.6 F H 100.2 F H Pulse Rate 100 H 100 H Respiratory Rate 14 17 Blood Pressure 83/51 L Pulse Oximetry 99 91 Oxygen Delivery Method 06/10/22 05:14 06/10/22 05:15 06/10/22 05:15 Temperature 100.4 F H 100.4 F H Pulse Rate 100 H 100 H Respiratory Rate 15 15 Blood Pressure 89/52 L Pulse Oximetry 100 100 Oxygen Delivery Method 06/10/22 05:30 06/10/22 05:30 06/10/22 05:45 Temperature 100.6 F H Pulse Rate 100 H Respiratory Rate 18 Blood Pressure 89/56 L 93/54 L Pulse Oximetry 100 Oxygen Delivery Method 06/10/22 05:45 06/10/22 05:58 06/10/22 05:59 Temperature 100.8 F H 100.8 F H 100.8 F H Pulse Rate 100 H 100 H 100 H Respiratory Rate 18 17 15 Blood Pressure Pulse Oximetry 100 100 100 Oxygen Delivery Method 06/10/22 06:00 06/10/22 06:00 06/10/22 06:15 Temperature 100.8 F H Pulse Rate 101 H Respiratory Rate 15 Blood Pressure 96/52 L 100/61 Pulse Oximetry 100 Oxygen Delivery Method 06/10/22 06:15 06/10/22 06:30 06/10/22 06:30 Temperature 100.8 F H 100.8 F H Pulse Rate 101 H 101 H Respiratory Rate 15 15 Blood Pressure 97/60 Pulse Oximetry 100 100 Oxygen Delivery Method 06/10/22 06:33 Temperature 100.8 F H Pulse Rate 101 H Respiratory Rate 19 Blood Pressure Pulse Oximetry 100 Oxygen Delivery Method Oxygen Delivery Method Mechanical Ventilation Narrative Exam Narrative: The patient is intubated in ICU room. Abdomen is nondistended. Keith catheter indwelling appropriately. Objective Labs Result Diagrams: 06/10/22 03:58 06/10/22 03:58 Labs: Laboratory Results - last 24 hr 06/09/22 06/09/22 06/09/22 20:00 20:00 20:00 WBC 29.1 H RBC 4.66 Hgb 13.3 L Hct 38.2 L MCV 81.8 MCH 28.5 MCHC 34.8 RDW 14.0 Plt Count 156 Neut % (Auto) Not Reportable Lymph % (Auto) Not Reportable [place] % (Auto) Not Reportable Eos % (Auto) Not Reportable Baso % (Auto) Not Reportable Lymph # (Auto) Not Reportable [place] # (Auto) Not Reportable Baso # (Auto) Not Reportable Total Counted 100 Seg Neutrophils % 82.0 H Band Neutrophils % 12.0 H Lymphocytes % (Manual) 5.0 L Monocytes % (Manual) 1.0 L Neutrophils # (Manual) 85943 H RBC Morphology See below Anisocytosis 1+ H PT INR APTT D-Dimer ABG pH ABG pCO2 ABG pO2 ABG HCO3 ABG Total CO2 ABG O2 Saturation ABG Base Excess FiO2 Sodium 135 L Potassium 3.6 Chloride 96 L Carbon Dioxide 23 BUN 22 H Creatinine 1.60 H Estimated GFR 45 L BUN/Creatinine Ratio 13.8 Glucose 262 H Hemoglobin A1c Lactate 3.0 H Calcium 8.1 L Magnesium Total Bilirubin 2.2 H AST 31 ALT 16 Alkaline Phosphatase 66 Total Creatine Kinase CK-MB (CK-2) CK-MB (CK-2) Rel Index Troponin I Total Protein 7.6 Albumin 4.2 Globulin 3.4 Albumin/Globulin Ratio 1.2 Procalcitonin Urine Color Urine Appearance Urine pH Ur Specific [place] Urine Protein Urine Glucose (UA) Urine Ketones Urine Occult Blood Urine Nitrate Urine Bilirubin Urine Urobilinogen Ur Leukocyte Esterase Urine RBC Urine WBC Ur Squamous Epith Cells Urine Bacteria Ur Culture Indicated? Nasal Screen MRSA (PCR) SARS-CoV-2 (PCR) 06/09/22 06/09/22 06/09/22 20:00 20:00 20:00 WBC RBC Hgb Hct MCV MCH MCHC RDW Plt Count Neut % (Auto) Lymph % (Auto) [place] % (Auto) Eos % (Auto) Baso % (Auto) Lymph # (Auto) [place] # (Auto) Baso # (Auto) Total Counted Seg Neutrophils % Band Neutrophils % Lymphocytes % (Manual) Monocytes % (Manual) Neutrophils # (Manual) RBC Morphology Anisocytosis PT 18.9 H INR 1.6 H APTT 31 D-Dimer 821 H ABG pH ABG pCO2 ABG pO2 ABG HCO3 ABG Total CO2 ABG O2 Saturation ABG Base Excess FiO2 Sodium Potassium Chloride Carbon Dioxide BUN Creatinine Estimated GFR BUN/Creatinine Ratio Glucose Hemoglobin A1c Lactate Calcium Magnesium Total Bilirubin AST ALT Alkaline Phosphatase Total Creatine Kinase 59 CK-MB (CK-2) TNP CK-MB (CK-2) Rel Index TNP Troponin I 0.924 H* Total Protein Albumin Globulin Albumin/Globulin Ratio Procalcitonin 4.70 H Urine Color Urine Appearance Urine pH Ur Specific [place] Urine Protein Urine Glucose (UA) Urine Ketones Urine Occult Blood Urine Nitrate Urine Bilirubin Urine Urobilinogen Ur Leukocyte Esterase Urine RBC Urine WBC Ur Squamous Epith Cells Urine Bacteria Ur Culture Indicated? Nasal Screen MRSA (PCR) SARS-CoV-2 (PCR) 06/09/22 06/09/22 06/09/22 20:00 20:14 22:13 WBC RBC Hgb Hct MCV MCH MCHC RDW Plt Count Neut % (Auto) Lymph % (Auto) [place] % (Auto) Eos % (Auto) Baso % (Auto) Lymph # (Auto) [place] # (Auto) Baso # (Auto) Total Counted Seg Neutrophils % Band Neutrophils % Lymphocytes % (Manual) Monocytes % (Manual) Neutrophils # (Manual) RBC Morphology Anisocytosis PT INR APTT D-Dimer ABG pH ABG pCO2 ABG pO2 ABG HCO3 ABG Total CO2 ABG O2 Saturation ABG Base Excess FiO2 Sodium Potassium Chloride Carbon Dioxide BUN Creatinine Estimated GFR BUN/Creatinine Ratio Glucose Hemoglobin A1c 7.8 H Lactate Calcium Magnesium Total Bilirubin AST ALT Alkaline Phosphatase Total Creatine Kinase CK-MB (CK-2) CK-MB (CK-2) Rel Index Troponin I 0.608 H* Total Protein Albumin Globulin Albumin/Globulin Ratio Procalcitonin Urine Color Yellow Urine Appearance Sl cloudy Urine pH 5.0 Ur Specific [place] 1.010 Urine Protein 1+ H Urine Glucose (UA) Negative Urine Ketones Negative Urine Occult Blood 1+ H Urine Nitrate Negative Urine Bilirubin Negative Urine Urobilinogen 0.2 Ur Leukocyte Esterase 2+ H Urine RBC 0-1/hpf Urine WBC 30-100/hpf H Ur Squamous Epith Cells None seen Urine Bacteria Many (>30) H Ur Culture Indicated? Specimen cultured Nasal Screen MRSA (PCR) SARS-CoV-2 (PCR) 06/09/22 06/09/22 06/09/22 22:13 23:49 23:50 WBC RBC Hgb Hct MCV MCH MCHC RDW Plt Count Neut % (Auto) Lymph % (Auto) [place] % (Auto) Eos % (Auto) Baso % (Auto) Lymph # (Auto) [place] # (Auto) Baso # (Auto) Total Counted Seg Neutrophils % Band Neutrophils % Lymphocytes % (Manual) Monocytes % (Manual) Neutrophils # (Manual) RBC Morphology Anisocytosis PT INR APTT D-Dimer ABG pH ABG pCO2 ABG pO2 ABG HCO3 ABG Total CO2 ABG O2 Saturation ABG Base Excess FiO2 Sodium Potassium Chloride Carbon Dioxide BUN Creatinine Estimated GFR BUN/Creatinine Ratio Glucose Hemoglobin A1c Lactate 5.3 H* Calcium Magnesium Total Bilirubin AST ALT Alkaline Phosphatase Total Creatine Kinase CK-MB (CK-2) CK-MB (CK-2) Rel Index Troponin I Total Protein Albumin Globulin Albumin/Globulin Ratio Procalcitonin Urine Color Urine Appearance Urine pH Ur Specific [place] Urine Protein Urine Glucose (UA) Urine Ketones Urine Occult Blood Urine Nitrate Urine Bilirubin Urine Urobilinogen Ur Leukocyte Esterase Urine RBC Urine WBC Ur Squamous Epith Cells Urine Bacteria Ur Culture Indicated? Nasal Screen MRSA (PCR) Negative for mrsa SARS-CoV-2 (PCR) Negative 06/10/22 06/10/22 06/10/22 00:22 03:58 03:58 WBC 46.5 H* D RBC 4.44 L Hgb 12.6 L Hct 37.4 L MCV 84.4 MCH 28.4 MCHC 33.7 RDW 14.3 Plt Count 209 Neut % (Auto) Not Reportable Lymph % (Auto) Not Reportable [place] % (Auto) Not Reportable Eos % (Auto) Not Reportable Baso % (Auto) Not Reportable Lymph # (Auto) Not Reportable [place] # (Auto) Not Reportable Baso # (Auto) Not Reportable Total Counted 100 Seg Neutrophils % 74.0 H Band Neutrophils % 18.0 H Lymphocytes % (Manual) 2.0 L Monocytes % (Manual) 6.0 Neutrophils # (Manual) 62413 H RBC Morphology See below Anisocytosis 1+ H PT 22.7 H INR 2.0 H APTT D-Dimer ABG pH 7.23 L* ABG pCO2 44.6 ABG pO2 154 H ABG HCO3 19 L ABG Total CO2 20 L ABG O2 Saturation 99 ABG Base Excess -9.0 L FiO2 100 Sodium Potassium Chloride Carbon Dioxide BUN Creatinine Estimated GFR BUN/Creatinine Ratio Glucose Hemoglobin A1c Lactate Calcium Magnesium Total Bilirubin AST ALT Alkaline Phosphatase Total Creatine Kinase CK-MB (CK-2) CK-MB (CK-2) Rel Index Troponin I Total Protein Albumin Globulin Albumin/Globulin Ratio Procalcitonin Urine Color Urine Appearance Urine pH Ur Specific [place] Urine Protein Urine Glucose (UA) Urine Ketones Urine Occult Blood Urine Nitrate Urine Bilirubin Urine Urobilinogen Ur Leukocyte Esterase Urine RBC Urine WBC Ur Squamous Epith Cells Urine Bacteria Ur Culture Indicated? Nasal Screen MRSA (PCR) SARS-CoV-2 (PCR) 06/10/22 06/10/22 06/10/22 03:58 03:58 03:58 WBC RBC Hgb Hct MCV MCH MCHC RDW Plt Count Neut % (Auto) Lymph % (Auto) [place] % (Auto) Eos % (Auto) Baso % (Auto) Lymph # (Auto) [place] # (Auto) Baso # (Auto) Total Counted Seg Neutrophils % Band Neutrophils % Lymphocytes % (Manual) Monocytes % (Manual) Neutrophils # (Manual) RBC Morphology Anisocytosis PT INR APTT D-Dimer ABG pH ABG pCO2 ABG pO2 ABG HCO3 ABG Total CO2 ABG O2 Saturation ABG Base Excess FiO2 Sodium 135 L Potassium 4.1 Chloride 101 Carbon Dioxide 15 L BUN 25 H Creatinine 2.27 H Estimated GFR 30 L BUN/Creatinine Ratio 11.0 Glucose 367 H D Hemoglobin A1c Lactate Calcium 6.8 L Magnesium 1.7 Total Bilirubin 1.7 H AST 53 ALT 24 Alkaline Phosphatase 57 Total Creatine Kinase CK-MB (CK-2) CK-MB (CK-2) Rel Index Troponin I 3.470 H* Total Protein 5.9 L Albumin 3.0 L Globulin 2.9 Albumin/Globulin Ratio 1.0 Procalcitonin 27.1 H Urine Color Urine Appearance Urine pH Ur Specific [place] Urine Protein Urine Glucose (UA) Urine Ketones Urine Occult Blood Urine Nitrate Urine Bilirubin Urine Urobilinogen Ur Leukocyte Esterase Urine RBC Urine WBC Ur Squamous Epith Cells Urine Bacteria Ur Culture Indicated? Nasal Screen MRSA (PCR) SARS-CoV-2 (PCR) 06/10/22 06:38 WBC RBC Hgb Hct MCV MCH MCHC RDW Plt Count Neut % (Auto) Lymph % (Auto) [place] % (Auto) Eos % (Auto) Baso % (Auto) Lymph # (Auto) [place] # (Auto) Baso # (Auto) Total Counted Seg Neutrophils % Band Neutrophils % Lymphocytes % (Manual) Monocytes % (Manual) Neutrophils # (Manual) RBC Morphology Anisocytosis PT INR APTT D-Dimer ABG pH 7.24 L* ABG pCO2 32.6 L ABG pO2 302 H* ABG HCO3 14 L ABG Total CO2 15 L ABG O2 Saturation 100 ABG Base Excess -14.0 L FiO2 100 Sodium Potassium Chloride Carbon Dioxide BUN Creatinine Estimated GFR BUN/Creatinine Ratio Glucose Hemoglobin A1c Lactate Calcium Magnesium Total Bilirubin AST ALT Alkaline Phosphatase Total Creatine Kinase CK-MB (CK-2) CK-MB (CK-2) Rel Index Troponin I Total Protein Albumin Globulin Albumin/Globulin Ratio Procalcitonin Urine Color Urine Appearance Urine pH Ur Specific [place] Urine Protein Urine Glucose (UA) Urine Ketones Urine Occult Blood Urine Nitrate Urine Bilirubin Urine Urobilinogen Ur Leukocyte Esterase Urine RBC Urine WBC Ur Squamous Epith Cells Urine Bacteria Ur Culture Indicated? Nasal Screen MRSA (PCR) SARS-CoV-2 (PCR) [facility] Medical History History of kidney stones Hyperlipidemia Hypertension Kidney stones Type 2 diabetes mellitus Social History household members: spouse Tobacco & Substance Use Smoking Status: Never smoker alcohol intake: current Assessment & Plan Assessment & Plan narrative: Assessment: 1. Urosepsis. All cultures currently pending. 2. Urinary retention. Indwelling Keith appropriately placed and positioned. 3. Retained right ureteral stents. Plan: 1. Following discussion with hospitalist team this morning, transfer to tertiary care facility recommended. 2. Leave Keith indwelling currently for obvious fluid I and O monitoring. Leave Keith indwelling thereafter to conduct supervised voiding trial in outpatient setting. 3. Recommend at least 2 weeks of appropriate antibiotic therapy following clinical stabilization of patient. 4. Recommend right antegrade percutaneous stent removal. [facility] currently does not have interventional radiology staff or procedural room to conduct this. As I informed the patient's daughter and the hospitalist team, retained ureteral stents over prolonged periods may become encrusted and require extracorporeal shockwave lithotripsy and/or ureteroscopic laser intervention to free the stent up from mucosal attachments before safe removal. 5. I informed the patient's daughter that should he need appropriate referral for right antegrade percutaneous stent removal following clinical stabilization and treatment of offending organism, [facility] will gladly assist in faci litating this. Time Spent With Patient Critical Care time: I spent a total of [] minutes of critical care time on this patient's care today; this time is exclusive of procedural time.
[2022-06-10 08:13] LABS: Lactate (Lactic Acid) 6.2 mmol/L (0.7-2.1)
[2022-06-10] MEDS: INSULIN DRIP PREMIX 100 UNIT/100 ML PLAST..BAG 6 UNIT IV (08:13)
[2022-06-10] MEDS: NOREPINEPHRINE BITARTRATE/D5W 4 MG/250 ML PLAST..BAG 30 MG IV ×2 (08:45→16:17)
[2022-06-10] MEDS: PANTOPRAZOLE 40 MG VIAL IV (09:01)
[2022-06-10] MEDS: MEROPENEM 1 GM in SODIUM CHLORIDE 0.9% 100 ML IV (09:03)
--- NOTE | 2022-06-10 09:08 | DIET.CONS ---
Dietary Consultation Note Admission Date: 06/09/2022 23:35 Assessment: 71 y/o M admitted and treated for severe septic shock likely r/t infected ureteral stent. Currently on vasopressin with MAP goal >65. Urology consulted for potential removal of stent. Additionally, pt may be transferred for higher care. LUIS with GFR low at 30 ml/hr, Cr high at 2.27 mg/dL elevated B mg/dL Currently on 18 mcg of propofol, limiting TF kcals TF not recommended for MAP <65. Ht: 175.26 cm Wt: 91.9 kg BMI: 29.9 Last BM: () MNA: 11 Joe Score: 19 Labs: RBC 4.44 X10^6/uL (4.5-5.9) L 06/10/22 03:58 Hgb 12.6 g/dL (13.5-17.5) L 06/10/22 03:58 Hct 37.4 % (41-53) L 06/10/22 03:58 Creatinine 2.27 mg/dL (0.66-1.25) H 06/10/22 03:58 Hemoglobin A1c 7.8 % (4.0-6.0) H 06/09/22 20:00 Lactate 6.2 mmol/L (0.7-2.1) H* 06/10/22 07:30 Nutrition Diagnosis: Inadequate energy intake r/t inability to take energy via PO aeb intubation Interventions: When TF is appropriate: 1. Rec feeding continuously Pivot 1.5 starting at 10ml/hr and titrating 10 ml/hr every 4-6 hours until at goal rate of 40 ml/hr. Free water flushes q 4 hours, min 120ml (330 ml q 4 hours to meet fluid needs per 30ml/kg). Reassess goal rate once pt is no longer on propofol. 2. Hospitalist to manage fluids 3. HOB elevated at least 30 degrees at all times to reduce risk of aspiration 4. Daily weights 5. Monitor refeeding labs and replenish prn EER: 1620kcals (18 kcals/kg per BMI and vent) 90g (1g/kg per renal insufficiency and vent) 2700ml (30ml/kg) Feed calories 1440kcals Propofol calories 262 kcals Total kcals: 1702 (105% of needs) Total protein: 90g (100% of needs) Feed water 729ml Flushes to meet fluid needs: 330 ml q 4 (1980ml) Total fluids (feed water + flushes): 2709 ml Monitoring/Evaluations: RD following q 1-2 days Electronically Signed by: Barbie Kohler 06/10/22 09:08 Clinical Dietitian [address] [id number]
[2022-06-10] MEDS: dexmedeTOMIDine in 0.9 % NaCL 400 MCG/100 ML PLAST..BAG IV (09:13)
[2022-06-10] MEDS: ASPIRIN 81 MG CHEW TAB 324 MG TUBE (09:14)
[2022-06-10 09:43] LABS: Reflexed Lactate in 2 Hours Y
[2022-06-10 10:13] LABS: Enterococcus species Not Detected (Not Detect); Listeria monocytogenes Not Detected (Not Detect); Staphylococcus species Not Detected (Not Detect); Streptococcus agalactiae (Gr B Not Detected (Not Detect); Streptococcus species Not Detected (Not Detect)
[2022-06-10 10:14] LABS: Acinetobacter baumannii Not Detected (Not Detect); Candida albicans Not Detected (Not Detect); Candida glabrata Not Detected (Not Detect); Candida krusei Not Detected (Not Detect); Candida parapsilosis Not Detected (Not Detect); Candida tropicalis Not Detected (Not Detect); E. coli Detected (Not Detect); Enterobacter cloacae complex Not Detected (Not Detect); Enterobacteriaceae species Detected (Not Detect); Haemophilus influenzae Not Detected (Not Detect); KPC (carbapenem-resist gene) Not Detected (Not Detect); Neisseria meningitidis Not Detected (Not Detect); Proteus species Not Detected (Not Detect); Pseudomonas aeruginosa Not Detected (Not Detect); Serratia marcescens Not Detected (Not Detect); Streptococcus pneumonia Not Detected (Not Detect); Streptococcus pyogenes (Gr A) Not Detected (Not Detect)
[2022-06-10 11:00] LABS: HCO3 ABG 16 mmol/L (22-26); PCO2 ABG 30.8 mmHg (35-45); PO2 ABG 106 mmHg (80-100); TCO2 ABG 17 mmol/L (21-31); pH ABG 7.32 (7.35-7.45)
[2022-06-10 11:01] LABS: Fractionated Inspired Oxygen 50; Oxygen Saturation ABG 98 % (95-100)
[2022-06-10] MEDS: SODIUM BICARB 8.4% VIAL 100 MEQ in DEXTROSE 5% WATER 1,000 ML 150 MEQ IV (11:16)
[2022-06-10] MEDS: MAGNESIUM SULFATE 2 GM/50 ML PIGGYBACK IV ×2 (11:21→14:04)
[2022-06-10] MEDS: CHLORHEXIDINE GLUCONATE 15 ML CUP PO (11:23)
--- NOTE | 2022-06-10 12:11 | P.DS_ITS ---
History of Present Illness History of Present Illness Date Patient Seen: 06/10/22 Chief complaint: Vomiting, Stomach cramps, SOB Narrative: Per WAYNE Roth: Scooter Byers is a 71 y.o. male with a history of ?type 2 diabetes, hyperlipidemia, prior kidney stones presents with 12 hours of increasing fevers, fatigue, overall altered mental status, and increasing abdominal pain.??He is unable to provide a history because he is sedated and intubated. Apparently the ED provider per her note stated that he denied any cough, chest pain, palpitations or lower extremity edema. He does have urinary retention and has had to use incontinence products. He denied diarrhea constipation but has been passing gas. Apparently the informed the ED provider that he was quite fatigued. When he presented to the emergency department he was acutely ill, febrile and pale and apparently informed the provider that he had significant abdominal pain. He was found to be tachycardic, tachypneic at and afebrile when he initially presented and he was normotensive, with 99% oxygen saturations initially. He has a history of kidney stones and the abdominal CT scan indicated a double- pigtail right urethral stent without hydronephrosis or hydroureter. He also had an acute kidney injury with a creatinine of 1.6 against a baseline of 1.3. His lactate was elevated at 3.0 and is now increased to 5.3. He also had an elevated procalcitonin of 4.7. His troponin was initially 0.9 and has now come down to 0.6, is thought to be due to demand ischemia likely from renal obstruction. While in the emergency department he had fever and rigors and was administered Tylenol. And then a few minutes later he had an episode of emesis but then became hypoxic with oxygen saturations dropping into the high 80s. He was started on 2 L of oxygen, administered Reglan. About a half an hour later he deteriorated with severe respiratory distress with dropping saturations. He was urgently intubated in the emergency department and a central line was placed. At that time he was given 5 mg of IV metoprolol as his heart rate was in the 160s dropping it down into the 130s. They stated that his blood pressure systolic of over 200 and now dropped to 125/30 with sedation. His rate at that time was 130. Chest x-ray to confirm ET tube placement indicated flash pulmon shon edema. Second troponin is now 0.6. Patient is on the severe sepsis protocol in the ICU and his pressures dropped into the mid 60s with a map of 53. Patient will be started on a neosynephrine and vasopressin drip by the boxing inspector. Per the ED provider after speaking to the urologist this was placed sometime in early 2019, and it was to be removed due to the early part of the pandemic his follow-up appointments were canceled and he was lost to follow-up. Discharge Providers Provider Date of admission: 06/09/22 23:35 Discharge Date: 06/10/22 Primary care physician: Patricia Blair MD Consults: 06/09/22 23:30 Consult to Tele-boxing inspector Routine Comment: Consulting Provider: [facility] Tele-intensivists Reason for consultation: Leasing Assistant services Has provider been notified: Yes 06/09/22 23:34 Consult to Physician Stat Comment: Consulting Provider: Julio Simms Reason for consultation: retained infected (?) double pigtail stent Has provider been notified: Yes 06/09/22 23:45 Consult to Urology Routine Comment: Consulting Provider: Julio Simms Reason for consultation: sepsis, pyelonephritis, ureteral stent in place Has provider been notified: Yes 06/10/22 06:51 Consult to Dietitian, Adult Routine Comment: Reason For Exam: Patient on Ventilator and NPO Discharge provider: Luis Means DO Summary Hospital Course Discharge Diagnosis: Please see below for hospital course by problem / system list Hospital Course: Neuro - intubated for acute respiratory failure. Follows simple commands while on sedation. - was on propofol and fentanyl, changed to precedex and fentanyl per tele-int ensivist team. Pulm: - acute respiratory failure with hypoxia, suspect secondary to bacteremia / septic shock. CTA chest negative for PE at [facility] overnight. CTA chest also showed bilateral posterior consolidations not present on previous radiographs from admission. Possible aspiration event given intubation overnight and also at risk given underlying septic shock. - current vent settings: FiO2 of 50%, PEEP 8, Tv 490, RR 16. CV: NSTEMI - initial troponin 0.9 which downtrended initially but then quickly jumped to 3 and at 10 am this morning troponin I was increasing to 10.8. Started on heparin gtt for probable NSTEMI. No cardiology evaluation at [facility], would recommend at outside facility once recovered from septic shock. - could still be in setting of demand. EKGs x4 without acute change and no evidence of acute ischemia. He does have a RBBB, unclear if new or old at this time. - was on levophed, vasopressin, and gonsalo at one time for his septic shock. Currently on Levophed and vasopressin. - no known cardiac history - TTE ordered but not yet performed. - history of HTN, HLD home medications currently on hold given septic shock. Statin ordered. - sinus tachy to 150s in the ER, now low 100s likely due to sepsis. was given 5 mg metoprolol IV to slow rate as BP was normal at that time. GI: Transaminitis and elevated bilirubuin - suspect this was in setting of shock. Abdominal imaging shows no biliary pathologies. Tbili and AST/ALT both improved today. INR elevated to 2.0 likely in setting of shock. Endo: - DM - Ac 7.8%. He is on an insulin infusion currently for glucose management with AM sugar of 367 on BMP today. Continue insulin infusion. - normall on 26 U of lantus for DM at home. - metabolic acidosis: suspect due to elevated and lactic acidemia. Less likely DKA but also possible. On insulin infusion, continue treatments for septic shock. Also started on bicarb infusion per accepting facility recommendation. Repeat ABG at 10:30 with HCO3 of 16 from 14, ph7.32 from 7.24, PCO2 of 31, PO2 of 106 on 50%. After initial ABG TV was increased from 450 to 490 by RT and tele-boxing inspector with this change. ID: - septic shock with acute respiratory failure, NSTEMI, Acute anuric renal failure secondary to E. coli and Enterbacter bacteremia. - Blood cultures positive PCR for E. coli and Enterbacter. Final speciation and sensitivites pending. - continues on meropenem and vancomycin. Consider stopping vancomycin at accepting facility. - see also noted below. Continues to spike fever to 103 at noon today. - procalcitonin 27. - UA with 30 - 100 WBC, + LE, growing GNB already. : Keith in place. Hx of BPH with nephrolithiasis. Follows with urology stone clinic. Lost to follow up after stent placement in 10/2019 which stent is still in place on the R. -?Per Urology here: CT of abdomen and pelvis, redemonstrated and intact indwelling right ureteral stent, and a 2nd stent with proximal migration of the distal pigtail.? There is no definite evidence of residual stone per my review. - 2. Leave Keith indwelling currently for obvious fluid I and O monitoring.? Leave Keith indwelling thereafter to conduct supervised voiding trial in outpatient setting.? 3. Recommend at least 2 weeks of appropriate antibiotic therapy following clinical stabilization of patient.? 4. Recommend right antegrade percutaneous stent removal.? [facility] currently does not have interventional radiology staff or procedural room to conduct this.? As I informed the patient's daughter and the hospitalist team, retained ureteral stents over prolonged periods may become encrusted and require extracorporeal shockwave lithotripsy and/or ureteroscopic laser intervention to free the stent up from mucosal attachments before safe removal. Heme: Marked leukocytosis to 46.5 today. Likely due to underlying sepsis. Plt 209 with Hg 12.6. 18% bands on cell count. Lines: ETT and OG placed 06/10, R IJ 06/10. PIV x2 in place. Keith placed 06/10 as noted above. PPX: SCDs for DVT given INR 2.0. Pantoprazole 40 mg IV ordered. Code: Full, surrogate is patient's spouse. Dispo: transfer to [facility] for higher level of care. Accepting ICU physician Dr. Guillen. I spent 65 minutes providing critical care management this patient. This excludes time spent in performing separately billed procedures. Time Spent with Patient Time spent: Greater than 30 minutes Exam Vital Signs (past 8 hours): - 06/10/22 04:15 06/10/22 04:15 06/10/22 04:30 Temperature 100.4 F H Pulse Rate 101 H Respiratory Rate 14 Blood Pressure 88/63 L 89/62 L Pulse Oximetry 99 Oxygen Delivery Method 06/10/22 04:30 06/10/22 04:45 06/10/22 04:45 Temperature 100.6 F H 100.6 F H Pulse Rate 101 H 100 H Respiratory Rate 14 14 Blood Pressure 85/61 L Pulse Oximetry 99 99 Oxygen Delivery Method 06/10/22 05:01 06/10/22 05:01 06/10/22 05:14 Temperature 100.2 F H 100.4 F H Pulse Rate 100 H 100 H Respiratory Rate 17 15 Blood Pressure 83/51 L Pulse Oximetry 91 100 Oxygen Delivery Method 06/10/22 05:15 06/10/22 05:15 06/10/22 05:30 Temperature 100.4 F H 100.6 F H Pulse Rate 100 H 100 H Respiratory Rate 15 18 Blood Pressure 89/52 L Pulse Oximetry 100 100 Oxygen Delivery Method 06/10/22 05:30 06/10/22 05:45 06/10/22 05:45 Temperature 100.8 F H Pulse Rate 100 H Respiratory Rate 18 Blood Pressure 89/56 L 93/54 L Pulse Oximetry 100 Oxygen Delivery Method 06/10/22 05:58 06/10/22 05:59 06/10/22 06:00 Temperature 100.8 F H 100.8 F H Pulse Rate 100 H 100 H Respiratory Rate 17 15 Blood Pressure 96/52 L Pulse Oximetry 100 100 Oxygen Delivery Method 06/10/22 06:00 06/10/22 06:15 06/10/22 06:15 Temperature 100.8 F H 100.8 F H Pulse Rate 101 H 101 H Respiratory Rate 15 15 Blood Pressure 100/61 Pulse Oximetry 100 100 Oxygen Delivery Method 06/10/22 06:30 06/10/22 06:30 06/10/22 06:33 Temperature 100.8 F H 100.8 F H Pulse Rate 101 H 101 H Respiratory Rate 15 19 Blood Pressure 97/60 Pulse Oximetry 100 100 Oxygen Delivery Method 06/10/22 06:45 06/10/22 06:45 06/10/22 07:00 Temperature 100.9 F H Pulse Rate 101 H Respiratory Rate 15 Blood Pressure 98/61 99/62 Pulse Oximetry 100 Oxygen Delivery Method 06/10/22 07:00 06/10/22 07:15 06/10/22 07:15 Temperature 100.9 F H 100.9 F H Pulse Rate 101 H 101 H Respiratory Rate 15 16 Blood Pressure 95/59 L Pulse Oximetry 100 100 Oxygen Delivery Method 06/10/22 07:30 06/10/22 07:30 06/10/22 07:45 Temperature 100.9 F H Pulse Rate 99 H Respiratory Rate 16 Blood Pressure 95/58 L 95/60 Pulse Oximetry 100 Oxygen Delivery Method 06/10/22 07:45 06/10/22 08:00 06/10/22 08:00 Temperature 100.9 F H 100.9 F H Pulse Rate 100 H 100 H Respiratory Rate 16 16 Blood Pressure 94/63 Pulse Oximetry 100 100 Oxygen Delivery Method 06/10/22 07:00 06/10/22 08:15 06/10/22 08:15 Temperature 100.9 F H Pulse Rate 101 H Respiratory Rate 16 Blood Pressure 98/64 Pulse Oximetry 100 Oxygen Delivery Method Mechanical Ventilation 06/10/22 08:30 06/10/22 08:30 06/10/22 08:45 Temperature 100.9 F H 100.9 F H Pulse Rate 101 H 101 H Respiratory Rate 16 16 Blood Pressure 106/69 Pulse Oximetry 100 100 Oxygen Delivery Method 06/10/22 08:45 06/10/22 09:00 06/10/22 09:00 Temperature 100.9 F H Pulse Rate 109 H Respiratory Rate 15 Blood Pressure 106/71 180/100 H Pulse Oximetry 100 Oxygen Delivery Method 06/10/22 09:03 06/10/22 09:03 06/10/22 09:13 Temperature 101.1 F H Pulse Rate 109 H Respiratory Rate 15 Blood Pressure 159/92 H 155/92 H Pulse Oximetry 99 Oxygen Delivery Method 06/10/22 09:13 06/10/22 09:19 06/10/22 09:19 Temperature 101.1 F H 101.1 F H Pulse Rate 111 H 108 H Respiratory Rate 19 16 Blood Pressure 122/73 Pulse Oximetry 99 100 Oxygen Delivery Method 06/10/22 09:30 06/10/22 09:33 06/10/22 09:33 Temperature 101.3 F H 101.3 F H Pulse Rate 113 H 112 H Respiratory Rate 21 17 Blood Pressure 118/74 Pulse Oximetry 99 99 Oxygen Delivery Method 06/10/22 09:49 06/10/22 09:49 06/10/22 10:00 Temperature 101.5 F H 101.5 F H Pulse Rate 110 H 105 H Respiratory Rate 18 19 Blood Pressure 98/63 Pulse Oximetry 99 100 Oxygen Delivery Method 06/10/22 10:21 06/10/22 10:21 06/10/22 10:25 Temperature 101.7 F H 101.7 F H Pulse Rate 101 H 103 H Respiratory Rate 20 19 Blood Pressure 79/53 L Pulse Oximetry 100 100 Oxygen Delivery Method 06/10/22 10:25 06/10/22 10:30 06/10/22 10:30 Temperature 101.7 F H Pulse Rate 106 H Respiratory Rate 19 Blood Pressure 86/56 L 100/65 Pulse Oximetry 100 Oxygen Delivery Method 06/10/22 10:40 06/10/22 10:40 06/10/22 10:50 Temperature 101.8 F H 101.8 F H Pulse Rate 108 H 107 H Respiratory Rate 19 20 Blood Pressure 106/68 Pulse Oximetry 100 100 Oxygen Delivery Method 06/10/22 10:50 06/10/22 11:00 06/10/22 11:00 Temperature 102.0 F H Pulse Rate 106 H Respiratory Rate 19 Blood Pressure 111/73 117/76 Pulse Oximetry 100 Oxygen Delivery Method 06/10/22 11:41 06/10/22 11:10 06/10/22 11:10 Temperature 102.0 F H Pulse Rate 106 H Respiratory Rate 20 Blood Pressure 115/78 Pulse Oximetry 100 Oxygen Delivery Method Mechanical Ventilation 06/10/22 11:20 06/10/22 11:20 06/10/22 11:30 Temperature 102.2 F H 102.2 F H Pulse Rate 106 H 106 H Respiratory Rate 20 20 Blood Pressure 115/79 Pulse Oximetry 100 100 Oxygen Delivery Method 06/10/22 11:52 06/10/22 11:52 06/10/22 12:00 Temperature 102.6 F H Pulse Rate 107 H Respiratory Rate 21 Blood Pressure 111/75 109/71 Pulse Oximetry 100 Oxygen Delivery Method 06/10/22 12:00 Temperature 102.6 F H Pulse Rate 107 H Respiratory Rate 21 Blood Pressure Pulse Oximetry 100 Oxygen Delivery Method Oxygen Delivery Method Mechanical Ventilation Narrative Exam Narrative: Gen: Sedated, critically ill-appearing 71 y.o. male, on a ventilator HEENT: normocephalic, atraumatic, conjunctiva clear, sclera non-icteric, oral mucosa pink and moist Neck: supple, full ROM, no JVD, central line in place on the right side Resp: Ventilated. Tachypneic, coarse breath sounds bilaterally, rhonchi in the bilateral lower lobes. CV: tachycardic and regular, no murmur or rubs Abd: soft, non-distended. : Keith draining scant bloody urine Skin: no lesions or rashes, dry and intact Neuro: Sedated. arouses occasionally. Extremities: Cool, dry. Trace LE edema b/l. Psyche: normal mood and affect. Objective Labs Result Diagrams: 06/10/22 03:58 06/10/22 03:58 Labs: Laboratory Results - last 24 hr 06/09/22 06/09/22 06/09/22 20:00 20:00 20:00 WBC 29.1 H RBC 4.66 Hgb 13.3 L Hct 38.2 L MCV 81.8 MCH 28.5 MCHC 34.8 RDW 14.0 Plt Count 156 Neut % (Auto) Not Reportable Lymph % (Auto) Not Reportable [place] % (Auto) Not Reportable Eos % (Auto) Not Reportable Baso % (Auto) Not Reportable Lymph # (Auto) Not Reportable [place] # (Auto) Not Reportable Baso # (Auto) Not Reportable Total Counted 100 Seg Neutrophils % 82.0 H Band Neutrophils % 12.0 H Lymphocytes % (Manual) 5.0 L Monocytes % (Manual) 1.0 L Neutrophils # (Manual) 73907 H RBC Morphology See below Anisocytosis 1+ H PT INR APTT D-Dimer ABG pH ABG pCO2 ABG pO2 ABG HCO3 ABG Total CO2 ABG O2 Saturation ABG Base Excess FiO2 Sodium 135 L Potassium 3.6 Chloride 96 L Carbon Dioxide 23 BUN 22 H Creatinine 1.60 H Estimated GFR 45 L BUN/Creatinine Ratio 13.8 Glucose 262 H Hemoglobin A1c Lactate 3.0 H Calcium 8.1 L Magnesium Total Bilirubin 2.2 H AST 31 ALT 16 Alkaline Phosphatase 66 Total Creatine Kinase CK-MB (CK-2) CK-MB (CK-2) Rel Index Troponin I Total Protein 7.6 Albumin 4.2 Globulin 3.4 Albumin/Globulin Ratio 1.2 Procalcitonin Urine Color Urine Appearance Urine pH Ur Specific [place] Urine Protein Urine Glucose (UA) Urine Ketones Urine Occult Blood Urine Nitrate Urine Bilirubin Urine Urobilinogen Ur Leukocyte Esterase Urine RBC Urine WBC Ur Squamous Epith Cells Urine Bacteria Ur Culture Indicated? Nasal Screen MRSA (PCR) A. baumannii (PCR) Tracy albicans (PCR) C. glabrata (PCR) C. krusei (PCR) C. parapsilosis (PCR) C. tropicalis (PCR) SARS-CoV-2 (PCR) Enterobacteriac sp PCR E. cloacae complex PCR Enterococcus sp PCR E. coli (PCR) H. influenzae (PCR) Klebsiella oxytoca PCR Klebsiella pneumoniae List. monocytogenes PCR N. meningitidis (PCR) Proteus species (PCR) Serratia marcescens PCR Staphylococcus sp PCR Staph aureus (PCR) mecA-Methicil Res Gene Streptococcus sp PCR Group A Strep (PCR) Strep agalactiae (PCR) Strep pneumoniae (PCR) P. aeruginosa (PCR) Janis/B-Vanco Res Genes KPC-Carbap Res Gene PCR Blood Type Antibody Screen 06/09/22 06/09/22 06/09/22 20:00 20:00 20:00 WBC RBC Hgb Hct MCV MCH MCHC RDW Plt Count Neut % (Auto) Lymph % (Auto) [place] % (Auto) Eos % (Auto) Baso % (Auto) Lymph # (Auto) [place] # (Auto) Baso # (Auto) Total Counted Seg Neutrophils % Band Neutrophils % Lymphocytes % (Manual) Monocytes % (Manual) Neutrophils # (Manual) RBC Morphology Anisocytosis PT 18.9 H INR 1.6 H APTT 31 D-Dimer 821 H ABG pH ABG pCO2 ABG pO2 ABG HCO3 ABG Total CO2 ABG O2 Saturation ABG Base Excess FiO2 Sodium Potassium Chloride Carbon Dioxide BUN Creatinine Estimated GFR BUN/Creatinine Ratio Glucose Hemoglobin A1c Lactate Calcium Magnesium Total Bilirubin AST ALT Alkaline Phosphatase Total Creatine Kinase 59 CK-MB (CK-2) TNP CK-MB (CK-2) Rel Index TNP Troponin I 0.924 H* Total Protein Albumin Globulin Albumin/Globulin Ratio Procalcitonin 4.70 H Urine Color Urine Appearance Urine pH Ur Specific [place] Urine Protein Urine Glucose (UA) Urine Ketones Urine Occult Blood Urine Nitrate Urine Bilirubin Urine Urobilinogen Ur Leukocyte Esterase Urine RBC Urine WBC Ur Squamous Epith Cells Urine Bacteria Ur Culture Indicated? Nasal Screen MRSA (PCR) A. baumannii (PCR) Tracy albicans (PCR) C. glabrata (PCR) C. krusei (PCR) C. parapsilosis (PCR) C. tropicalis (PCR) SARS-CoV-2 (PCR) Enterobacteriac sp PCR E. cloacae complex PCR Enterococcus sp PCR E. coli (PCR) H. influenzae (PCR) Klebsiella oxytoca PCR Klebsiella pneumoniae List. monocytogenes PCR N. meningitidis (PCR) Proteus species (PCR) Serratia marcescens PCR Staphylococcus sp PCR Staph aureus (PCR) mecA-Methicil Res Gene Streptococcus sp PCR Group A Strep (PCR) Strep agalactiae (PCR) Strep pneumoniae (PCR) P. aeruginosa (PCR) Janis/B-Vanco Res Genes KPC-Carbap Res Gene PCR Blood Type Antibody Screen 06/09/22 06/09/22 06/09/22 20:00 20:00 20:14 WBC RBC Hgb Hct MCV MCH MCHC RDW Plt Count Neut % (Auto) Lymph % (Auto) [place] % (Auto) Eos % (Auto) Baso % (Auto) Lymph # (Auto) [place] # (Auto) Baso # (Auto) Total Counted Seg Neutrophils % Band Neutrophils % Lymphocytes % (Manual) Monocytes % (Manual) Neutrophils # (Manual) RBC Morphology Anisocytosis PT INR APTT D-Dimer ABG pH ABG pCO2 ABG pO2 ABG HCO3 ABG Total CO2 ABG O2 Saturation ABG Base Excess FiO2 Sodium Potassium Chloride Carbon Dioxide BUN Creatinine Estimated GFR BUN/Creatinine Ratio Glucose Hemoglobin A1c 7.8 H Lactate Calcium Magnesium Total Bilirubin AST ALT Alkaline Phosphatase Total Creatine Kinase CK-MB (CK-2) CK-MB (CK-2) Rel Index Troponin I Total Protein Albumin Globulin Albumin/Globulin Ratio Procalcitonin Urine Color Yellow Urine Appearance Sl cloudy Urine pH 5.0 Ur Specific [place] 1.010 Urine Protein 1+ H Urine Glucose (UA) Negative Urine Ketones Negative Urine Occult Blood 1+ H Urine Nitrate Negative Urine Bilirubin Negative Urine Urobilinogen 0.2 Ur Leukocyte Esterase 2+ H Urine RBC 0-1/hpf Urine WBC 30-100/hpf H Ur Squamous Epith Cells None seen Urine Bacteria Many (>30) H Ur Culture Indicated? Specimen cultured Nasal Screen MRSA (PCR) A. baumannii (PCR) Not detected Tracy albicans (PCR) Not detected C. glabrata (PCR) Not detected C. krusei (PCR) Not detected C. parapsilosis (PCR) Not detected C. tropicalis (PCR) Not detected SARS-CoV-2 (PCR) Enterobacteriac sp PCR Detected H E. cloacae complex PCR Not detected Enterococcus sp PCR Not detected E. coli (PCR) Detected H H. influenzae (PCR) Not detected Klebsiella oxytoca PCR Not detected Klebsiella pneumoniae Not detected List. monocytogenes PCR Not detected N. meningitidis (PCR) Not detected Proteus species (PCR) Not detected Serratia marcescens PCR Not detected Staphylococcus sp PCR Not detected Staph aureus (PCR) Not detected mecA-Methicil Res Gene TNP Streptococcus sp PCR Not detected Group A Strep (PCR) Not detected Strep agalactiae (PCR) Not detected Strep pneumoniae (PCR) Not detected P. aeruginosa (PCR) Not detected Janis/B-Vanco Res Genes TNP KPC-Carbap Res Gene PCR Not detected Blood Type Antibody Screen 06/09/22 06/09/22 06/09/22 22:13 22:13 23:49 WBC RBC Hgb Hct MCV MCH MCHC RDW Plt Count Neut % (Auto) Lymph % (Auto) [place] % (Auto) Eos % (Auto) Baso % (Auto) Lymph # (Auto) [place] # (Auto) Baso # (Auto) Total Counted Seg Neutrophils % Band Neutrophils % Lymphocytes % (Manual) Monocytes % (Manual) Neutrophils # (Manual) RBC Morphology Anisocytosis PT INR APTT D-Dimer ABG pH ABG pCO2 ABG pO2 ABG HCO3 ABG Total CO2 ABG O2 Saturation ABG Base Excess FiO2 Sodium Potassium Chloride Carbon Dioxide BUN Creatinine Estimated GFR BUN/Creatinine Ratio Glucose Hemoglobin A1c Lactate 5.3 H* Calcium Magnesium Total Bilirubin AST ALT Alkaline Phosphatase Total Creatine Kinase CK-MB (CK-2) CK-MB (CK-2) Rel Index Troponin I 0.608 H* Total Protein Albumin Globulin Albumin/Globulin Ratio Procalcitonin Urine Color Urine Appearance Urine pH Ur Specific [place] Urine Protein Urine Glucose (UA) Urine Ketones Urine Occult Blood Urine Nitrate Urine Bilirubin Urine Urobilinogen Ur Leukocyte Esterase Urine RBC Urine WBC Ur Squamous Epith Cells Urine Bacteria Ur Culture Indicated? Nasal Screen MRSA (PCR) A. baumannii (PCR) Tracy albicans (PCR) C. glabrata (PCR) C. krusei (PCR) C. parapsilosis (PCR) C. tropicalis (PCR) SARS-CoV-2 (PCR) Negative Enterobacteriac sp PCR E. cloacae complex PCR Enterococcus sp PCR E. coli (PCR) H. influenzae (PCR) Klebsiella oxytoca PCR Klebsiella pneumoniae List. monocytogenes PCR N. meningitidis (PCR) Proteus species (PCR) Serratia marcescens PCR Staphylococcus sp PCR Staph aureus (PCR) mecA-Methicil Res Gene Streptococcus sp PCR Group A Strep (PCR) Strep agalactiae (PCR) Strep pneumoniae (PCR) P. aeruginosa (PCR) Janis/B-Vanco Res Genes KPC-Carbap Res Gene PCR Blood Type Antibody Screen 06/09/22 06/10/22 06/10/22 23:50 00:22 03:58 WBC 46.5 H* D RBC 4.44 L Hgb 12.6 L Hct 37.4 L MCV 84.4 MCH 28.4 MCHC 33.7 RDW 14.3 Plt Count 209 Neut % (Auto) Not Reportable Lymph % (Auto) Not Reportable [place] % (Auto) Not Reportable Eos % (Auto) Not Reportable Baso % (Auto) Not Reportable Lymph # (Auto) Not Reportable [place] # (Auto) Not Reportable Baso # (Auto) Not Reportable Total Counted 100 Seg Neutrophils % 74.0 H Band Neutrophils % 18.0 H Lymphocytes % (Manual) 2.0 L Monocytes % (Manual) 6.0 Neutrophils # (Manual) 19644 H RBC Morphology See below Anisocytosis 1+ H PT INR APTT D-Dimer ABG pH 7.23 L* ABG pCO2 44.6 ABG pO2 154 H ABG HCO3 19 L ABG Total CO2 20 L ABG O2 Saturation 99 ABG Base Excess -9.0 L FiO2 100 Sodium Potassium Chloride Carbon Dioxide BUN Creatinine Estimated GFR BUN/Creatinine Ratio Glucose Hemoglobin A1c Lactate Calcium Magnesium Total Bilirubin AST ALT Alkaline Phosphatase Total Creatine Kinase CK-MB (CK-2) CK-MB (CK-2) Rel Index Troponin I Total Protein Albumin Globulin Albumin/Globulin Ratio Procalcitonin Urine Color Urine Appearance Urine pH Ur Specific [place] Urine Protein Urine Glucose (UA) Urine Ketones Urine Occult Blood Urine Nitrate Urine Bilirubin Urine Urobilinogen Ur Leukocyte Esterase Urine RBC Urine WBC Ur Squamous Epith Cells Urine Bacteria Ur Culture Indicated? Nasal Screen MRSA (PCR) Negative for mrsa A. baumannii (PCR) [place] albicans (PCR) C. glabrata (PCR) C. krusei (PCR) C. parapsilosis (PCR) C. tropicalis (PCR) SARS-CoV-2 (PCR) Enterobacteriac sp PCR E. cloacae complex PCR Enterococcus sp PCR E. coli (PCR) H. influenzae (PCR) Klebsiella oxytoca PCR Klebsiella pneumoniae List. monocytogenes PCR N. meningitidis (PCR) Proteus species (PCR) Serratia marcescens PCR Staphylococcus sp PCR Staph aureus (PCR) mecA-Methicil Res Gene Streptococcus sp PCR Group A Strep (PCR) Strep agalactiae (PCR) Strep pneumoniae (PCR) P. aeruginosa (PCR) Janis/B-Vanco Res Genes KPC-Carbap Res Gene PCR Blood Type Antibody Screen 06/10/22 06/10/22 06/10/22 03:58 03:58 03:58 WBC RBC Hgb Hct MCV MCH MCHC RDW Plt Count Neut % (Auto) Lymph % (Auto) [place] % (Auto) Eos % (Auto) Baso % (Auto) Lymph # (Auto) [place] # (Auto) Baso # (Auto) Total Counted Seg Neutrophils % Band Neutrophils % Lymphocytes % (Manual) Monocytes % (Manual) Neutrophils # (Manual) RBC Morphology Anisocytosis PT 22.7 H INR 2.0 H APTT D-Dimer ABG pH ABG pCO2 ABG pO2 ABG HCO3 ABG Total CO2 ABG O2 Saturation ABG Base Excess FiO2 Sodium 135 L Potassium 4.1 Chloride 101 Carbon Dioxide 15 L BUN 25 H Creatinine 2.27 H Estimated GFR 30 L BUN/Creatinine Ratio 11.0 Glucose 367 H D Hemoglobin A1c Lactate Calcium 6.8 L Magnesium 1.7 Total Bilirubin 1.7 H AST 53 ALT 24 Alkaline Phosphatase 57 Total Creatine Kinase CK-MB (CK-2) CK-MB (CK-2) Rel Index Troponin I 3.470 H* Total Protein 5.9 L Albumin 3.0 L Globulin 2.9 Albumin/Globulin Ratio 1.0 Procalcitonin Urine Color Urine Appearance Urine pH Ur Specific [place] Urine Protein Urine Glucose (UA) Urine Ketones Urine Occult Blood Urine Nitrate Urine Bilirubin Urine Urobilinogen Ur Leukocyte Esterase Urine RBC Urine WBC Ur Squamous Epith Cells Urine Bacteria Ur Culture Indicated? Nasal Screen MRSA (PCR) A. baumannii (PCR) Tracy albicans (PCR) C. glabrata (PCR) C. krusei (PCR) C. parapsilosis (PCR) C. tropicalis (PCR) SARS-CoV-2 (PCR) Enterobacteriac sp PCR E. cloacae complex PCR Enterococcus sp PCR E. coli (PCR) H. influenzae (PCR) Klebsiella oxytoca PCR Klebsiella pneumoniae List. monocytogenes PCR N. meningitidis (PCR) Proteus species (PCR) Serratia marcescens PCR Staphylococcus sp PCR Staph aureus (PCR) mecA-Methicil Res Gene Streptococcus sp PCR Group A Strep (PCR) Strep agalactiae (PCR) Strep pneumoniae (PCR) P. aeruginosa (PCR) Janis/B-Vanco Res Genes KPC-Carbap Res Gene PCR Blood Type Antibody Screen 06/10/22 06/10/22 06/10/22 03:58 06:38 07:30 WBC RBC Hgb Hct MCV MCH MCHC RDW Plt Count Neut % (Auto) Lymph % (Auto) [place] % (Auto) Eos % (Auto) Baso % (Auto) Lymph # (Auto) [place] # (Auto) Baso # (Auto) Total Counted Seg Neutrophils % Band Neutrophils % Lymphocytes % (Manual) Monocytes % (Manual) Neutrophils # (Manual) RBC Morphology Anisocytosis PT INR APTT D-Dimer ABG pH 7.24 L* ABG pCO2 32.6 L ABG pO2 302 H* ABG HCO3 14 L ABG Total CO2 15 L ABG O2 Saturation 100 ABG Base Excess -14.0 L FiO2 100 Sodium Potassium Chloride Carbon Dioxide BUN Creatinine Estimated GFR BUN/Creatinine Ratio Glucose Hemoglobin A1c Lactate 6.2 H* Calcium Magnesium Total Bilirubin AST ALT Alkaline Phosphatase Total Creatine Kinase CK-MB (CK-2) CK-MB (CK-2) Rel Index Troponin I Total Protein Albumin Globulin Albumin/Globulin Ratio Procalcitonin 27.1 H Urine Color Urine Appearance Urine pH Ur Specific [place] Urine Protein Urine Glucose (UA) Urine Ketones Urine Occult Blood Urine Nitrate Urine Bilirubin Urine Urobilinogen Ur Leukocyte Esterase Urine RBC Urine WBC Ur Squamous Epith Cells Urine Bacteria Ur Culture Indicated? Nasal Screen MRSA (PCR) A. baumannii (PCR) Tracy albicans (PCR) C. glabrata (PCR) C. krusei (PCR) C. parapsilosis (PCR) C. tropicalis (PCR) SARS-CoV-2 (PCR) Enterobacteriac sp PCR E. cloacae complex PCR Enterococcus sp PCR E. coli (PCR) H. influenzae (PCR) Klebsiella oxytoca PCR Klebsiella pneumoniae List. monocytogenes PCR N. meningitidis (PCR) Proteus species (PCR) Serratia marcescens PCR Staphylococcus sp PCR Staph aureus (PCR) mecA-Methicil Res Gene Streptococcus sp PCR Group A Strep (PCR) Strep agalactiae (PCR) Strep pneumoniae (PCR) P. aeruginosa (PCR) Janis/B-Vanco Res Genes KPC-Carbap Res Gene PCR Blood Type Antibody Screen 06/10/22 06/10/22 06/10/22 07:30 07:30 10:15 WBC RBC Hgb Hct MCV MCH MCHC RDW Plt Count Neut % (Auto) Lymph % (Auto) [place] % (Auto) Eos % (Auto) Baso % (Auto) Lymph # (Auto) [place] # (Auto) Baso # (Auto) Total Counted Seg Neutrophils % Band Neutrophils % Lymphocytes % (Manual) Monocytes % (Manual) Neutrophils # (Manual) RBC Morphology Anisocytosis PT INR APTT 31 D-Dimer ABG pH ABG pCO2 ABG pO2 ABG HCO3 ABG Total CO2 ABG O2 Saturation ABG Base Excess FiO2 Sodium Potassium Chloride Carbon Dioxide BUN Creatinine Estimated GFR BUN/Creatinine Ratio Glucose Hemoglobin A1c Lactate Calcium Magnesium Total Bilirubin AST ALT Alkaline Phosphatase Total Creatine Kinase CK-MB (CK-2) CK-MB (CK-2) Rel Index Troponin I 10.800 H* Total Protein Albumin Globulin Albumin/Globulin Ratio Procalcitonin Urine Color Urine Appearance Urine pH Ur Specific [place] Urine Protein Urine Glucose (UA) Urine Ketones Urine Occult Blood Urine Nitrate Urine Bilirubin Urine Urobilinogen Ur Leukocyte Esterase Urine RBC Urine WBC Ur Squamous Epith Cells Urine Bacteria Ur Culture Indicated? Nasal Screen MRSA (PCR) A. baumannii (PCR) Tracy albicans (PCR) C. glabrata (PCR) C. krusei (PCR) C. parapsilosis (PCR) C. tropicalis (PCR) SARS-CoV-2 (PCR) Enterobacteriac sp PCR E. cloacae complex PCR Enterococcus sp PCR E. coli (PCR) H. influenzae (PCR) Klebsiella oxytoca PCR Klebsiella pneumoniae List. monocytogenes PCR N. meningitidis (PCR) Proteus species (PCR) Serratia marcescens PCR Staphylococcus sp PCR Staph aureus (PCR) mecA-Methicil Res Gene Streptococcus sp PCR Group A Strep (PCR) Strep agalactiae (PCR) Strep pneumoniae (PCR) P. aeruginosa (PCR) Janis/B-Vanco Res Genes KPC-Carbap Res Gene PCR Blood Type A Positive Antibody Screen Negative 06/10/22 06/10/22 10:15 10:46 WBC RBC Hgb Hct MCV MCH MCHC RDW Plt Count Neut % (Auto) Lymph % (Auto) [place] % (Auto) Eos % (Auto) Baso % (Auto) Lymph # (Auto) [place] # (Auto) Baso # (Auto) Total Counted Seg Neutrophils % Band Neutrophils % Lymphocytes % (Manual) Monocytes % (Manual) Neutrophils # (Manual) RBC Morphology Anisocytosis PT INR APTT D-Dimer ABG pH 7.32 L ABG pCO2 30.8 L ABG pO2 106 H ABG HCO3 16 L ABG Total CO2 17 L ABG O2 Saturation 98 ABG Base Excess -10.0 L FiO2 50 Sodium Potassium Chloride Carbon Dioxide BUN Creatinine Estimated GFR BUN/Creatinine Ratio Glucose Hemoglobin A1c Lactate 5.0 H* Calcium Magnesium Total Bilirubin AST ALT Alkaline Phosphatase Total Creatine Kinase CK-MB (CK-2) CK-MB (CK-2) Rel Index Troponin I Total Protein Albumin Globulin Albumin/Globulin Ratio Procalcitonin Urine Color Urine Appearance Urine pH Ur Specific [place] Urine Protein Urine Glucose (UA) Urine Ketones Urine Occult Blood Urine Nitrate Urine Bilirubin Urine Urobilinogen Ur Leukocyte Esterase Urine RBC Urine WBC Ur Squamous Epith Cells Urine Bacteria Ur Culture Indicated? Nasal Screen MRSA (PCR) A. baumannii (PCR) Tracy albicans (PCR) C. glabrata (PCR) C. krusei (PCR) C. parapsilosis (PCR) C. tropicalis (PCR) SARS-CoV-2 (PCR) Enterobacteriac sp PCR E. cloacae complex PCR Enterococcus sp PCR E. coli (PCR) H. influenzae (PCR) Klebsiella oxytoca PCR Klebsiella pneumoniae List. monocytogenes PCR N. meningitidis (PCR) Proteus species (PCR) Serratia marcescens PCR Staphylococcus sp PCR Staph aureus (PCR) mecA-Methicil Res Gene Streptococcus sp PCR Group A Strep (PCR) Strep agalactiae (PCR) Strep pneumoniae (PCR) P. aeruginosa (PCR) Janis/B-Vanco Res Genes KPC-Carbap Res Gene PCR Blood Type Antibody Screen [facility] Medical History History of kidney stones Hyperlipidemia Hypertension Kidney stones Type 2 diabetes mellitus Social History household members: spouse Smoking Status: Never smoker alcohol intake: current Discharge Plan Discharge Plan Disposition: Xfer Acute Care Hospital Discharge orders & Medications Follow up/Referrals: Patricia Blair MD [Primary Care Provider] - Discharge Data Primary Care Provider: Patricia Blair Quality VTE Deep Vein Thrombosis/Pulmonary Embolism Present on Admission: No
[2022-06-10] MEDS: HEPARIN DRIP 25,000 UNIT/500 ML IV.SOLN 20 UNIT IV (12:19)
[2022-06-10] MEDS: ATORVASTATIN 20 MG TABLET 80 MG TUBE (12:40)
[2022-06-10 14:26] LABS: BUN Creatinine Ratio 11.3 (6-22); Blood Urea Nitrogen 34 mg/dL (9-20); Calcium 7.5 mg/dL (8.4-10.2); Carbon Dioxide 20 mmol/L (22-32); Chloride 97 mmol/L (98-107); Estimated Glomerular Filt Rate 21 mL/min (>60); Glucose 245 mg/dL (80-110); HEMOLYSIS < 15 (0-50); Potassium 3.8 mmol/L (3.4-5.1); Sodium 133 mmol/L (137-145)
[2022-06-10] MEDS: INSULIN DRIP PREMIX 100 UNIT/100 ML PLAST..BAG 9.1 UNIT IV (14:44)
--- NOTE | 2022-06-10 14:44 | CM.DANOTE ---
Patient is a 71 yo male who was admitted on 06/09/22 for V/N/SOB. Pt has [employer] for insurance and his PCP is Patricia Blair. EMR was reviewed. Per MD, pt with hx of diabetes and was intubated in the ED from severe sepsis due to pyelonephritis from retained pigtail placement in October 2019 and did not follow up with Urology after due to COVID concerns. Per Urology Consult and recommendations, pt needs transfer for higher level of care needs. Per hedis registered nurse rn, pt remains intubated and sedated and [facility] accepts hospital transfer. Plan: Pt likely to transfer to [facility] for higher level of care this evening around 1615. IGGY Mejia Discharge Planning/Care Management Advanced directive, confirm from FAMILY Start: 06/10/22 04:31 Freq: Q24H Status: Active Protocol: Document 06/10/22 04:31 RF (Rec: 06/10/22 04:34 RF [id number]) Advance Directive, confirm on record Time 04:34 Person contacted Daughter Copy received No
[2022-06-10 15:23] LABS: HCO3 ABG 18 mmol/L (22-26); Oxygen Saturation ABG 98 % (95-100); PO2 ABG 103 mmHg (80-100); TCO2 ABG 19 mmol/L (21-31); pH ABG 7.36 (7.35-7.45)
[2022-06-10 15:24] LABS: Fractionated Inspired Oxygen 45
--- NOTE | 2022-06-10 15:49 | PC.NURSE ---
1415 report called to Danitza OLSON @ [facility] ICU. Family aware pt is being transferred by ambulance, provided with phone number for pts destination.
[2022-06-10] MEDS: fentaNYL 1,000 MCG in DEXTROSE 5% IN WATER 230 ML 11.51 MCG IV (16:14)
[2022-06-10] MEDS: dexmedeTOMIDine in 0.9 % NaCL 400 MCG/100 ML PLAST..BAG 6.893 MCG IV (16:16)
[2022-06-10] MEDS: MEROPENEM 500 MG in SODIUM CHLORIDE 0.9% 100 ML 200 MG IV (16:17)
--- NOTE | 2022-06-10 18:06 | SUR.OPER ---
1800 pt left the facility with [facility] transport. Receiving facility called with update and ETA
== END 2022-06-10 18:06 | disposition short-term general hospital (02) | DRG 698 ==
LOC: ED 23:30 → AC 23:36 → ICU 23:36
PROVIDERS: Internal Medicine; Admitting Provider Nurse Practitioner Family; Emergency Provider Emergency Medicine; PCP Internal Medicine; Referring Provider Emergency Medicine; Visit Provider Nurse Practitioner Family
DX: T83.592A Infection and inflammatory reaction due to indwelling ureteral stent, initial encounter (principal); A41.51 Sepsis due to Escherichia coli [E. coli]; J81.0 Acute pulmonary edema; R65.21 Severe sepsis with septic shock; I21.4 Non-ST elevation (NSTEMI) myocardial infarction; J96.01 Acute respiratory failure with hypoxia; N17.9 Acute kidney failure, unspecified; E87.21 Acute metabolic acidosis; I24.8 Other forms of acute ischemic heart disease; N10 Acute pyelonephritis; E80.6 Other disorders of bilirubin metabolism; I10 Essential (primary) hypertension; R33.8 Other retention of urine; E11.9 Type 2 diabetes mellitus without complications; E78.5 Hyperlipidemia, unspecified; N40.1 Benign prostatic hyperplasia with lower urinary tract symptoms; Z79.84 Long term (current) use of oral hypoglycemic drugs; Z79.4 Long term (current) use of insulin; Z20.822 Contact with and (suspected) exposure to COVID-19
CPT/HCPCS: 36415; 36600; 51798; 71045; 71046; 71275; 74177; 80048; 80053; 81001; 81003; 82330; 82550; 82805; 82962; 83036; 83605; 83735; 84145; 84484; 85007; 85025; 85379; 85610; 85730; 86850; 86900; 86901; 87040; 87077; 87086; 87150; 87186; 87635; 87797; 93005; 93010; 94002; 94003; 94799; 96365; 96367; 96368; 96375; 99233; 99284; 99291; C9803; C9113; J0692; J0696; J1644; J1815; J2185; J2704; J2765; J3010; J3475; P9041; Q9967